=== PATIENT | female | born 1975 | race Hispanic/Latino ===

== ENCOUNTER 2018-09-06 03:59 | Inpatient (IN) | payer BC, SELFPAY ==
[2018-09-06] MEDS ORDERED: METOCLOPRAMIDE 10 MG/2mL INJ ONE (04:25)
[2018-09-06] MEDS ORDERED: DIPHENHYDRAMINE 25 MG TAB/CAP ONE (04:25)
[2018-09-06] MEDS ORDERED: BENZTROPINE 2 MG/2 ML VIAL ONE (04:47)
[2018-09-06 05:02] LABS: Absolute Lymphocytes (CBC) 3.3 K/uL (0.7-4.9); Absolute Monocytes 0.5 K/uL (0.1-1.3); Absolute Neutrophil 5.4 K/uL (1.8-8.0); Basophils % 0.5 % (0-1.3); Eosinophils % 1.4 % (0-4.4); Hematocrit 37.3 % (36.0-45.0); Lymphocytes % 35.1 % (15.3-44.8); MCH 29.5 pg (27.0-35.0); MCV 88.9 fL (80-100); MPV 10.3 fL (7.6-11.3); Monocytes % 5.4 % (3.3-12.3); RBC Red Blood Cell Count 4.19 M/uL (3.86-4.86)
[2018-09-06 05:15] LABS: ALT/SGPT 25 U/L (12-78); AST/SGOT 16 U/L (15-37); Albumin 3.5 g/dL (3.4-5.0); Alkaline Phosphatase 84 U/L (45-117); BUN Blood Urea Nitrogen 15 mg/dL (7-18); Bicarbonate 24 mmol/L (21-32); Bilirubin Total 0.5 mg/dL (0.2-1.0); Glucose Level 124 mg/dL (74-106); Potassium 3.8 mmol/L (3.5-5.1); Protein, Total 7.9 g/dL (6.4-8.2); Sodium Level 137 mmol/L (136-145)
[2018-09-06 06:11] LABS: Urine Blood 1+ (NEG); Urine Glucose NEGATIVE (NEG); Urine Protein NEGATIVE (NEG); Urine Specific Gravity >1.030 (1.005-1.030); Urine pH 5.5 (5.0-7.0)
--- NOTE | 2018-09-06 08:04 | RAD REPORT ---
EXAM DESCRIPTION: CT - Head angio - 09/06/2018 6:52 am CLINICAL HISTORY: blurred vision headache COMPARISON: Head Brain Wo Cont dated 09/06/2018; Head Brain Wo Cont dated 11/25/2017 TECHNIQUE: CT angiography of the head was performed with MIPs. All CT scans are performed using dose optimization technique as appropriate and may include automated exposure control or mA/KV adjustment according to patient size. FINDINGS: No evidence of aneurysm is detected. No flow-limiting stenosis or vascular malformation id entified. Antegrade flow is seen in the vertebral arteries. The vertebral arteries are codominant. The visualized dural venous sinuses are patent. IMPRESSION: No significant flow abnormality is detected.
--- NOTE | 2018-09-06 08:07 | RAD REPORT ---
EXAM DESCRIPTION: CT - Head Brain Wo Cont - 09/06/2018 7:09 am CLINICAL HISTORY: headache and left hemianopsia COMPARISON: Head Brain Wo Cont dated 11/25/2017; Head Brain Wo Cont dated 12/19/2016 TECHNIQUE: All CT scans are performed using dose optimization technique as appropriate and may inclu de automated exposure control or mA/KV adjustment according to patient size. FINDINGS: No intracranial hemorrhage, hydrocephalus or extra-axial fluid collection.No areas of brai n edema or evidence of midline shift. The paranasal sinuses and mastoids are clear. The calvarium is intact. IMPRESSION: No acute intracranial abnormality.
[2018-09-06] MEDS ORDERED: MEPERIDINE HCL 25 MG/0.5 ML ONE ×2 (08:20→12:03)
[2018-09-06] MEDS ORDERED: NA CHLORIDE 0.9% 1,000 ML ONE (08:20)
--- NOTE | 2018-09-06 08:48 | RAD REPORT ---
EXAM DESCRIPTION: RAD - Chest Single View - 09/06/2018 4:27 am CLINICAL HISTORY: headache visual change / subacute sls Chest pain. COMPARISON: Chest Single View dated 12/19/2016; Chest Pa And Lat (2 Views) dated 06/07/2016; CHEST SING LE VIEW dated 06/02/2014; CHEST SINGLE VIEW dated 12/26/2013 FINDINGS: Portable technique limits examination quality. The lungs are grossly clear. The heart is normal in size. No displaced fractures. IMPRESSION: No acute intrathoracic process suspected.
--- NOTE | 2018-09-06 09:15 | EDPHYS ---
Physician Documentation [facility] Name: Sarai Mohan Age: 43 yrs Sex: Female : 1975 Arrival Date: 09/06/2018 Time: 04:00 Bed 13 Private MD: ED Physician Andres Yang HPI: 09/06 04:20 This 43 yrs old Female presents to ER via Unassigned with complaints of ps1 Blurred Vision, Headache. 04:20 patient has a history of headaches and is presenting with a headache that started ps1 yesterday. She states she got concerned when she started watching the news and had visual changes. LKN was 10pm , 6 hours [employer]. She was seen last ED encounter by myself for similar complaints with neurologic phenomena. Tonight she describes visual changes with a left sided hemianopsia in which she states she can only see the right side of my face and clear where the right side of my face is supposed to be. . Historical: - Allergies: 04:22 No Known Allergies; aa1 - Home Meds: 04:22 None [Active]; aa1 - PMHx: 04:22 epilepsy; aa1 - PSHx: 04:22 Hysterectomy; Tubal ligation; Appendectomy; bladder prolapse sx; aa1 - Immunization history:: Flu vaccine is up to date. - Social history:: Smoking status: Patient/guardian denies using tobacco. - Ebola Screening: : No symptoms or risks identified at this time. ROS: 04:20 Constitutional: Negative for fever, chills, and weight loss, Eyes: Negative for injury, ps1 pain, redness, and discharge, Cardiovascular: Negative for chest pain, palpitations, and edema, Respiratory: Negative for shortness of breath, cough, wheezing, and pleuritic chest pain, Abdomen/GI: Negative for abdominal pain, nausea, vomiting, diarrhea, and constipation, Back: Negative for injury and pain, MS/Extremity: Negative for injury and deformity, Skin: Negative for injury, rash, and discoloration. 04:20 Neuro: Positive for headache, visual changes. Exam: 04:20 Constitutional: This is a well developed, well nourished patient who is awake, alert, ps1 and in no acute distress. Head/Face: Normocephalic, atraumatic. Eyes: Pupils equal round and reactive to light, extra-ocular motions intact. Lids and lashes normal. Conjunctiva and sclera are non-icteric and not injected. Chest/axilla: Normal chest wall appearance and motion. Nontender with no deformity. No lesions are appreciated. Cardiovascular: Regular rate and rhythm. No gallops, murmurs, or rubs. Normal PMI, no JVD. No pulse deficits. Respiratory: Lungs have equal breath sounds bilaterally, clear to auscultation and percussion. No rales, rhonchi or wheezes noted. No increased work of breathing, no retractions or nasal flaring. Abdomen/GI: Soft, non-tender, with normal bowel sounds. No distension or tympany. No guarding or rebound. No evidence of tenderness throughout. Back: No spinal tenderness. No costovertebral tenderness. Full range of motion. Skin: Warm, dry with normal turgor. Normal color with no rashes, no lesions, and no evidence of cellulitis. MS/ Extremity: Pulses equal, no cyanosis. Neurovascular intact. Full, normal range of motion. 04:20 Neuro: Orientation: is normal, to person, place \T\ time. Mentation: is normal, Memory: is normal, Cranial nerves: grossly normal, Cerebellar function: is grossly normal, inconsistent exam with counting fingers. Patient was able to see objects in which she reportedly was blanked in FOV. . Vital Signs: 04:22 BP 180 / 86; Pulse 83; Resp 16; Temp 98.6; Pulse Ox 98% on R/A; Weight 78.02 kg; Height aa1 5 ft. 4 in. (162.56 cm); Pain 0/10; 05:41 BP 127 / 72; Pulse 61; Resp 18; Pulse Ox 97% on R/A; tl1 06:36 BP 119 / 67; Pulse 57; Resp 18; Pulse Ox 97% on R/A; tl2 07:45 BP 124 / 88; Pulse 102; Resp 18; Pulse Ox 100% on R/A; ph 08:22 BP 126 / 76; Pulse 68; Resp 18; Pulse Ox 98% on R/A; ph 10:30 BP 106 / 67; Pulse 66; Resp 18; Pulse Ox 98% on R/A; ph 11:30 BP 112 / 62; Pulse 71; Resp 18; Pulse Ox 98% on R/A; ph 12:44 BP 105 / 58; Pulse 78; Resp 18; Temp 98.2; Pulse Ox 98% on R/A; ph 04:22 Body Mass Index 29.52 (78.02 kg, 162.56 cm) aa1 [place] Coma Score: 08:08 Eye Response: spontaneous(4). Verbal Response: oriented(5). Motor Response: obeys rn commands(6). Total: 15. MDM: 04:16 Patient medically screened. ps1 07:45 Transition of care: Care assumed from Tra Hebert MD. 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 . 08:08 Differential diagnosis: hypertensive headache, intracerebral hemorrhage, migraine, rn subarachnoid bleed, tension headache, vasomotor headache. Data reviewed: vital signs, nurses notes, lab test result(s), radiologic studies, CT scan, and as a result, I will discharge patient. Counseling: I had a detailed discussion with the patient and/or guardian regarding: the historical points, exam findings, and any diagnostic results supporting the discharge/admit diagnosis, lab results, radiology results, the need for outpatient follow up, to return to the emergency department if symptoms worsen or persist or if there are any questions or concerns that arise at home. Response to treatment: the patient's symptoms have mildly improved after treatment, and as a result, I will admit patient. ED course: Negative CT angio of brain. Patient upon reevaluation reports not any better, but when asked specifically about pain, reports not currently having headache. Vision changes still present. Reports long hx of headaches and migraines in past. Pain is intermittent. Otherwise non-focal exam. Will dc home with neuro and ophtho f/u. Already sees Dr. Kwok and Dr. Bruce. . 09/06 04:15 Order name: CBC with Diff; Complete Time: 05:16 ps1 09/06 04:15 Order name: CMP; Complete Time: 05:15 ps1 09/06 04:15 Order name: CT Head Brain wo Cont; Complete Time: 08:07 ps1 09/06 04:15 Order name: CXR XRAY ps1 09/06 04:33 Order name: Urine Dipstick--Ancillary (enter results); Complete Time: 06:12 mt 09/06 04:33 Order name: Urine --Ancillary (enter results); Complete Time: 06:12 mt 09/06 06:22 Order name: Head angio; Complete Time: 08:07 EDMS 09/06 10:29 Order name: Diet Regular; Complete Time: 10:30 3 09/06 04:15 Order name: Urine Dipstick-Ancillary (obtain specimen); Complete Time: 04:22 ps1 Administered Medications: 04:27 Not Given (Patient Refused): Benadryl 50 mg PO once tl2 04:28 Drug: Reglan 10 mg Route: IVP; Site: right antecubital; tl2 04:45 Drug: COgentin 1 mg Route: IVP; Site: right antecubital; tl1 08:22 Drug: NS 0.9% 1000 ml Route: IV; Rate: 1000 ml; Site: right antecubital; ph 10:00 Follow up: Response: No adverse reaction; IV Status: Completed infusion ph 08:22 Drug: Demerol 25 mg Route: IVP; Site: right antecubital; ph 09:30 Follow up: Response: No adverse reaction; Pain is decreased ph 12:00 Drug: Demerol 25 mg Route: IVP; Site: right antecubital; ph 12:50 Follow up: Response: No adverse reaction; Pain is decreased ph Disposition: 09/06/18 09:14 Hospitalization ordered by Mohamud Nolan for Inpatient Admission. Preliminary diagnosis are Homonymous bilateral field defects, left side, Headache. - Bed requested for Telemetry/MedSurg (Inpatient). - Status is Inpatient Admission. ph - Condition is Stable. - Problem is new. - Symptoms are unchanged. UTI on Admission? No Signatures: Dispatcher [employer] EDWY Shaina Macedo RN RN aa1 Andres Yang MD MD rn Lasagna, Tonya, RN RN tl1 Karen Joshua RN RN Tejal Rodríguez RN RN tl2 Charlee Castañeda 3 Tra Hebert MD MD ps1 Maribel Kan Corrections: (The following items were deleted from the chart) 09:42 09:14 Hospitalization Ordered by Mohamud Nolan MD for Inpatient Admission. Preliminary eb diagnosis is Homonymous bilateral field defects, left side; Headache. Bed requested for Telemetry/MedSurg (Inpatient). Status is Inpatient Admission. Condition is Stable. Problem is new. Symptoms are unchanged. UTI on Admission? No. rn 12:44 09:42 09/06/2018 09:14 Hospitalization Ordered by Mohamud Nolan MD for Inpatient dh3 Admission. Preliminary diagnosis is Homonymous bilateral field defects, left side; Headache. Bed requested for Telemetry/MedSurg (Inpatient). Status is Inpatient Admission. Condition is Stable. Problem is new. Symptoms are unchanged. UTI on Admission? No. eb 13:01 12:44 09/06/2018 09:14 Hospitalization Ordered by Mohamud Nolan MD for Inpatient Admission. Preliminary diagnosis is Homonymous bilateral field defects, left side; Headache. Bed requested for Telemetry/MedSurg (Inpatient). Status is Inpatient Admission. Condition is Stable. Problem is new. Symptoms are unchanged. UTI on Admission? No. dh3
--- NOTE | 2018-09-06 09:15 | ER ---
Nurse's Notes [facility] Name: Sarai Mohan Age: 43 yrs Sex: Female : 1975 Arrival Date: 09/06/2018 Time: 04:00 Bed 13 Private MD: Diagnosis: Homonymous bilateral field defects, left side;Headache Presentation: 09/06 04:10 Presenting complaint: Patient states: she has had a migraine headache x 2 days and aa1 began having difficulty with her vision around 2200 last night. States, "I can see that all of yall are there but when I look at your faces I can only see the right half.". Transition of care: patient was not received from another setting of care. Onset of symptoms was September 05, 2018. Risk Assessment: Do you want to hurt yourself or someone else? Patient reports no desire to harm self or others. Initial Sepsis Screen: Does the patient meet any 2 criteria? No. Patient's initial sepsis screen is negative. Does the patient have a suspected source of infection? No. Patient's initial sepsis screen is negative. Care prior to arrival: None. 04:10 Method Of Arrival: Ambulatory aa1 04:10 Acuity: VIC 3 aa1 Historical: - Allergies: 04:22 No Known Allergies; aa1 - Home Meds: 04:22 None [Active]; aa1 - PMHx: 04:22 epilepsy; aa1 - PSHx: 04:22 Hysterectomy; Tubal ligation; Appendectomy; bladder prolapse sx; aa1 - Immunization history:: Flu vaccine is up to date. - Social history:: Smoking status: Patient/guardian denies using tobacco. - Ebola Screening: : No symptoms or risks identified at this time. Screenin:18 Abuse screen: Denies threats or abuse. Nutritional screening: No deficits noted. tl2 Tuberculosis screening: No symptoms or risk factors identified. Fall Risk None identified. Assessment: 04:18 General: Appears in no apparent distress. uncomfortable, Behavior is calm, cooperative, tl2 appropriate for age. Pain: Complains of pain in headache. Neuro: Level of Consciousness is awake, alert, obeys commands, Oriented to person, place, time, situation, Reports blurred vision Pt reports only having vision in the right visual delgadillo when she is focusing on something. Peripheral vision remains intact. Neuro: Gait is steady, Speech is normal, Facial symmetry appears normal, Pupils are PERRLA, Denies dizziness. Cardiovascular: Denies chest pain. Respiratory: Airway is patent Respiratory effort is even, unlabored, Respiratory pattern is regular, symmetrical. GI: No signs and/or symptoms were reported involving the gastrointestinal system. EENT:. Derm: Skin is pink, warm \\T\\ dry. 06:36 Reassessment: Patient appears in no apparent distress at this time. Patient and/or tl2 family updated on plan of care and expected duration. Pain level reassessed. Pt being transported to MD, states her headache has improved slightly. 07:45 Reassessment: Patient appears in no apparent distress at this time. Patient and/or ph family updated on plan of care and expected duration. Pain level reassessed. Patient is alert, oriented x 3, equal unlabored respirations, skin warm/dry/pink. ERP at bedside to speak w/ pt. 09:00 Reassessment: Patient appears in no apparent distress at this time. Patient and/or ph family updated on plan of care and expected duration. Pain level reassessed. Patient is alert, oriented x 3, equal unlabored respirations, skin warm/dry/pink. 10:00 Reassessment: Patient appears in no apparent distress at this time. Patient and/or ph family updated on plan of care and expected duration. Pain level reassessed. Patient is alert, oriented x 3, equal unlabored respirations, skin warm/dry/pink. Pt ambulated to restroom, gait steady, awaiting room assignmnet. 11:00 Reassessment: Patient appears in no apparent distress at this time. Patient and/or ph family updated on plan of care and expected duration. Pain level reassessed. Patient is alert, oriented x 3, equal unlabored respirations, skin warm/dry/pink. 12:00 Reassessment: Patient appears in no apparent distress at this time. Patient and/or ph family updated on plan of care and expected duration. Pain level reassessed. Patient is alert, oriented x 3, equal unlabored respirations, skin warm/dry/pink. Pt eating lunch, tolerating well, c/o headache 05/22, ERP notified, see MAR. 12:57 Reassessment: Patient appears in no apparent distress at this time. Patient and/or ph family updated on plan of care and expected duration. Pain level reassessed. Patient is alert, oriented x 3, equal unlabored respirations, skin warm/dry/pink. Report called to Jenny LOCKE, pt taken to inpatient room via wheelchair. Vital Signs: 04:22 BP 180 / 86; Pulse 83; Resp 16; Temp 98.6; Pulse Ox 98% on R/A; Weight 78.02 kg; Height aa1 5 ft. 4 in. (162.56 cm); Pain 0/10; 05:41 BP 127 / 72; Pulse 61; Resp 18; Pulse Ox 97% on R/A; tl1 06:36 BP 119 / 67; Pulse 57; Resp 18; Pulse Ox 97% on R/A; tl2 07:45 BP 124 / 88; Pulse 102; Resp 18; Pulse Ox 100% on R/A; ph 08:22 BP 126 / 76; Pulse 68; Resp 18; Pulse Ox 98% on R/A; ph 10:30 BP 106 / 67; Pulse 66; Resp 18; Pulse Ox 98% on R/A; ph 11:30 BP 112 / 62; Pulse 71; Resp 18; Pulse Ox 98% on R/A; ph 12:44 BP 105 / 58; Pulse 78; Resp 18; Temp 98.2; Pulse Ox 98% on R/A; ph 04:22 Body Mass Index 29.52 (78.02 kg, 162.56 cm) aa1 [place] Coma Score: 08:08 Eye Response: spontaneous(4). Verbal Response: oriented(5). Motor Response: obeys rn commands(6). Total: 15. ED Course: 04:00 Patient arrived in ED. ds1 04:02 Tra Hebert MD is Attending Physician. ps1 04:17 Tejal Rodríguez, CHUKCY is Primary Nurse. tl2 04:18 Patient has correct armband on for positive identification. Bed in low position. Call tl2 light in reach. Side rails up X 1. 04:18 Inserted saline lock: 20 gauge in right antecubital area, using aseptic technique. tl2 Blood collected. 04:21 Triage completed. aa1 04:22 Arm band placed on right wrist. aa1 04:26 X-ray completed. Portable x-ray completed in exam room. Patient tolerated procedure kw well. 04:27 CXR XRAY In Process Unspecified. EDMS 04:50 CT Head Brain wo Cont In Process Unspecified. EDMS 04:51 CT completed. Patient tolerated procedure well. Patient moved to CT via wheelchair. eh Patient moved back from CT. 06:52 Head angio In Process Unspecified. EDMS 06:54 CT completed. Patient tolerated procedure well. Patient moved to CT via wheelchair. eh Patient moved back from CT. 09:13 Mohamud Nolan MD is Hospitalizing Provider. rn 09:14 Attending Physician role handed off by Tra Hebert MD rn 09:14 Andres Yang MD is Attending Physician. rn 13:00 No provider procedures requiring assistance completed. Patient admitted, IV remains in ph place. Administered Medications: 04:27 Not Given (Patient Refused): Benadryl 50 mg PO once tl2 04:28 Drug: Reglan 10 mg Route: IVP; Site: right antecubital; tl2 04:45 Drug: COgentin 1 mg Route: IVP; Site: right antecubital; tl1 08:22 Drug: NS 0.9% 1000 ml Route: IV; Rate: 1000 ml; Site: right antecubital; ph 10:00 Follow up: Response: No adverse reaction; IV Status: Completed infusion ph 08:22 Drug: Demerol 25 mg Route: IVP; Site: right antecubital; ph 09:30 Follow up: Response: No adverse reaction; Pain is decreased ph 12:00 Drug: Demerol 25 mg Route: IVP; Site: right antecubital; ph 12:50 Follow up: Response: No adverse reaction; Pain is decreased ph Outcome: 09:14 Decision to Hospitalize by Provider. rn 13:01 Admitted to Med/surg accompanied by tech, via wheelchair, room 426, with chart. ph 13:01 Condition: stable 13:01 Patient left the ED. ph Signatures: Dispatcher [employer] EDMS Shaina Macedo RN RN cj1 Morales Salvador Demi ds1 Andres Yang MD MD rn Whitley, Kimberlee kw Lasagna, Tonya, RN RN tl1 Karen Joshua RN RN ph Knox, Taylor RN RN tl2 Tra Hebert MD MD ps1
[2018-09-06] MEDS ORDERED: ONDANSETRON 4 MG/2 ML VIAL IV PRN (13:08)
[2018-09-06 13:36] VITALS: BMI 29.5
[2018-09-06] MEDS ORDERED: POTASSIUM CL SA 10 MEQ TAB PO ONE (14:00)
[2018-09-06] MEDS: ENOXAPARIN 40 MG/0.4 ML SQ SCH (14:50)
--- NOTE | 2018-09-06 17:34 | RAD REPORT ---
EXAM DESCRIPTION: MRI - Brain W/Wo Cont - 09/06/2018 5:18 pm CLINICAL HISTORY: Homonous hemianopsia COMPARISON: Head angio dated 09/06/2018; MRA Head Wo Cont dated 12/21/2016; Brain Wo Cont dated 12/19/19 17; MRA Neck W/Wo Cont dated 12/21/2016; Head Brain Wo Cont dated 09/06/2018 TECHNIQUE: Multi-sequence, multiplanar MR imaging of the brain was performed with contrast. FINDINGS: No intracranial hemorrhage, hydrocephalus, extra-axial fluid collection. No edema or shift of midline structures. No intracranial mass. 3 cm area of restricted diffusion is noted in the righ t occipital lobe with diminished ADC map signal compatible with acute CVA.. The midline structures are normally formed. Mastoid air cells and paranasal sinuses are clear. Post-contrast images show no abnormal enhancement to suggest tumor or infection. 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 Findings were discussed with Dr. Nolan 5:30 p.m. 09/06/2018 by telephone.
--- NOTE | 2018-09-06 19:17 | RAD REPORT ---
EXAM DESCRIPTION: US - CP - 09/06/2018 6:34 pm CLINICAL HISTORY: CVA COMPARISON: None. TECHNIQUE: Real-time sonographic evaluation of both carotid systems was performed. Ramírez scale and Do ppler interrogation were performed with waveform tracing bilaterally. FINDINGS: Normal high resistance waveforms are noted in both external carotid arteries. The common c arotid arteries and internal carotid arteries show normal low resistance waveforms. No significant plaquing is seen on visual inspection. The mid and distal right internal carotid arter y velocity values are elevated relative to the left. ICA/CCA ratios are 1.7 on the right and 1.2 on t he left. Antegrade flow seen in both vertebral arteries. Velocity values and ratios were recorded and are retained in the patient's imaging records. IMPRESSION: Mid and distal ICA velocity values are elevated with an elevated right side ICA/ CCA rat io. On visual inspection significant stenosis is not evident. Follow-up MR angiography of the cervical ca rotid vasculature could be performed for further characterization. No significant stenosis or significant disease on the left.
[2018-09-06] MEDS: ACETAMINOPHEN 500 MG TAB PO PRN (20:08)
[2018-09-06] MEDS: ATORVASTATIN 80 MG TAB PO SCH (20:09)
[2018-09-06 20:13] LABS: Urine Appearance CLEAR; Urine Bilirubin NEGATIVE (NEG); Urine Blood NEGATIVE (NEG); Urine Color YELLOW; Urine Glucose NEGATIVE (NEG); Urine Protein NEGATIVE (NEG); Urine Specific Gravity 1.015 (1.005-1.030); Urine Urobilinogen 0.2 mg/dL (0.2-1.0); Urine pH 6.5 (5.0-7.0)
[2018-09-06 20:20] LABS: Urine Microscopic Reflex NO UMIC
--- NOTE | 2018-09-06 22:38 | P.HP ---
Patient History Date of Service: 09/06/18 Reason for admission: Left sided vision loss History of Present Illness: 43 yr old female with hx of epilepsy, not on any medications, presented to the ER with complaints of left sided vision loss since 10 pm the night prior to admission. Per patient, she was watching tv at night and noticed that her vision was funny and she could not see anything from the left half side of her vision and she had a terrible headache. She has a history of getting such headaches so she thought it was related to that, took 2 tylenol and went to sleep. She woke up around 3 am with a headache and when she woke up to go to the bathroom she noticed her vision had not gotten any better and hence came to the ED. In the ED, a CT scan was done, which was negative and she was admitted for further evaluation. At the time of my exam, her symptoms were unchanged. She denies any speech changes, any focal weakness, loss of conciousness, falls, dizziness, cp, shortness of breath or any numbness/tingling. Allergies No Known Drug Allergies Allergy (Verified 12/21/16 06:21) Unknown No Known Allergies Allergy (Uncoded 11/25/17 14:37) Unknown Home Medications: levETIRAcetam [Keppra*] 750 mg PO BID #60 tab 12/23/16 Ibuprofen [Advil] 400 mg PO Q8HP 09/06/18 - Past Medical/Surgical History Has patient received pneumonia vaccine in the past: No Diabetic: No -: epilepsy -: prolapsed bladder -: Partial hysterectomy -: Tubal Ligation -: Appendectomy -: Ovarian Cyst -: prolapsed bladder sx - Family History Father -: Hypertension, Diabetes Mother -: Hypertension, Cancer - Social History Smoking Status: Never smoker Alcohol use: No CD- Drugs: No Caffeine use: Yes Place of Residence: Home Review of Systems General: Unremarkable Eyes: Vision Change, As per HPI ENT: Unremarkable Respiratory: Unremarkable Cardiovascular: Unremarkable Gastrointestinal: Unremarkable Genitourinary: Unremarkable Musculoskeletal: Unremarkable Integumentary: Unremarkable Neurological: As per HPI Lymphatics: Unremarkable Physical Examination - Vital Signs Temperature: 98.4 F Blood Pressure: 127/62 Pulse: 61 Respirations: 20 Pulse Ox (%): 99 - Physical Exam General: Alert, Oriented x3, Moderate distress (due to symptoms of vision changes/ADAMS) HEENT: Atraumatic, PERRLA, Mucous membr. moist/pink, EOMI, Sclerae nonicteric Neck: Supple, 2+ carotid pulse no bruit, No LAD, Without JVD or thyroid abnormality Respiratory: Clear to auscultation bilaterally, Normal air movement Cardiovascular: Regular rate/rhythm, Normal S1 S2 Gastrointestinal: Normal bowel sounds, No tenderness Musculoskeletal: No tenderness Integumentary: No rashes Neurological: Normal gait, Normal speech, Normal strength at 5/5 x4 extr, Normal tone, Sensation intact, Normal affect, Abnormal cranial nerve function Lymphatics: No axilla or inguinal lymphadenopathy - Studies Laboratory Data (last 24 hrs) 09/06/18 04:15: Sodium 137, Potassium 3.8, BUN 15, Creatinine 0.60, Glucose 124 H, Total Bilirubin 0.5, AST 16, ALT 25, Alkaline Phosphatase 84 09/06/18 04:15: WBC 9.4, Hgb 12.4, Hct 37.3, Plt Count 215 Assessment and Plan - Problems (Diagnosis) (1) Hemianopia of left eye Current Visit: Yes Status: Acute Plan: Ddx: Stroke, TIA, complex migraine CT negative for bleed MRI, MRA neck/brain ordered Neurology, Dr. Kwok consulted (2) Seizure disorder Current Visit: No Status: Suspected Plan: No evidence of seizure at this time Patient has not been on her home medication of keppra since 04/2018 as she ran out. Will hold off on seizure medication Her neurologist, Dr. Kwok consulted. - Advance Directives Does patient have a Living Will: No Does patient have a Durable POA for Healthcare: No
--- NOTE | 2018-09-06 23:40 | CON ---
Date of Consultation: 09/06/2018 Reason: Vision loss, stroke. History: This is a 43-year-old lady whom I have seen in the past. She has a history of seizures, those have been very stable on Keppra. We have not seen her in over 6 months. She was in her usual state of health until last night, 10 p.m., she noticed abrupt onset headache, vision loss on the left side of her vision. She thought perhaps the problem would improve, but it did not, and when she woke up this morning, came to the emergency department, where she was noted to have a dense left hemianopsia. Six hours outside after onset, CT angiogram did not demonstrate any evidence of a large vessel occlusion, so felt not to be a candidate for thrombectomy. She was admitted to the hospital given the significant vision loss. She did have headache associated as well, and she has a history of migraines. Brain MRI demonstrates 3 cm nonhemorrhagic infarct in the right occipital lobe, it is slightly lateral to midline on personal review. She does not notice any dysarthria, numbness, weakness, vertigo, ataxia or other posterior fossa ischemic symptoms. Denies neck pain. As noted, there is no real evidence of a dissection on CT angiogram. Consultation was requested. Past Medical History: Epilepsy, headaches. Medications: Keppra 750 twice daily. Allergies: NONE. Social History: Employed. Does not smoke. Normally independent activities of daily living. Family History: Significant for vascular disease. Review of Systems: General: Good health. Eyes: Vision loss. Ears, Nose, Throat: Negative. Cardiovascular: Negative. Pulmonary: Negative. GI: Negative. : Negative. Musculoskeletal: Negative. Neurologic: As noted. Psychiatric: Negative. Endocrine: Negative. Hematologic: Negative. Physical Examination: Vital Signs: 97.8, 65, 18, 132/59. General: A pleasant lady, sitting in bed, in no distress. Awake, alert, oriented to time, person, place, and situation. Heart: Sinus rhythm. Neck: No carotid bruits. Lungs: Clear. Abdomen: Soft. Bowel sounds present. HEENT: Pupils reactive. Ocular motion full. Allen full. Dense left homonymous hemianopsia to confrontation. Neck: Supple. Extremities: Strength full. Sensation intact. No cortical extinction. Reflexes 1/4. Toes are downgoing. Neurologic: Cerebellar exam demonstrates no ataxia. Pertinent Labs: Brain MRI as noted. Echo pending. Lipids pending. Impression: Cerebral infarction, right occipital lobe. There is no real evidence for primary thrombotic phenomenon, possibly embolic. We will initiate a hypercoagulable workup. Follow up on the echo. Check MRA head and neck as well. She should have at least 135 degrees of vision to safely drive. Thank you for the consult. We will continue to follow with you. SAVANNA Voice ID: [id number] Report ID: [id number] MTDD
[2018-09-07] MEDS: ACETAMINOPHEN 500 MG TAB PO PRN ×2 (04:58→10:20)
[2018-09-07 06:22] LABS: RPR Titer ND
[2018-09-07 06:38] LABS: Absolute Lymphocytes (CBC) 2.3 K/uL (0.7-4.9); Absolute Monocytes 0.4 K/uL (0.1-1.3); Absolute Neutrophil 4.4 K/uL (1.8-8.0); Basophils % 0.3 % (0-1.3); Eosinophils % 1.7 % (0-4.4); Hematocrit 36.7 % (36.0-45.0); Lymphocytes % 31.4 % (15.3-44.8); MCH 29.9 pg (27.0-35.0); MCV 89.1 fL (80-100); MPV 10.5 fL (7.6-11.3); Monocytes % 5.5 % (3.3-12.3); RBC Red Blood Cell Count 4.13 M/uL (3.86-4.86)
[2018-09-07 07:14] LABS: ALT/SGPT 23 U/L (12-78); AST/SGOT 10 U/L (15-37); Albumin 3.3 g/dL (3.4-5.0); Alkaline Phosphatase 85 U/L (45-117); BUN Blood Urea Nitrogen 11 mg/dL (7-18); Bicarbonate 23 mmol/L (21-32); Bilirubin Total 0.4 mg/dL (0.2-1.0); Glucose Level 118 mg/dL (74-106); HDL Cholesterol 46 mg/dL (40-60); LDL Cholesterol, Calculated 91 (<130); Magnesium 1.9 mg/dL (1.8-2.4); Phosphorus 3.4 mg/dL (2.5-4.9); Potassium 3.9 mmol/L (3.5-5.1); Protein, Total 7.6 g/dL (6.4-8.2); Sodium Level 137 mmol/L (136-145)
--- NOTE | 2018-09-07 07:52 | RAD REPORT ---
EXAM DESCRIPTION: MRI - MRA Head Wo Cont - 09/07/2018 7:16 am CLINICAL HISTORY: CVA COMPARISON: MRI of February 04 TECHNIQUE: Axial and coronal 3D [id number] image acquisition was performed. 3D rotational images were generated with source and reconstruction images reviewed. Horizontal and vertical axis rotation al views generated using MIP protocol. FINDINGS: Major venous sinuses are patent. No aneurysm or vascular malformation. No specific branch occlusion or significant atherosclerotic change in the vascular distribution of th e known acute right occipital lobe CVA. Basilar artery and distal vertebral arteries are unremarkable . No significant posterior cerebral artery disease identifiable. No significant vascular disease in the right middle cerebral artery distribution. No vasculitis or ot her suspicious vascular finding identifiable. IMPRESSION: MRA head examination shows no significant or suspicious finding.
--- NOTE | 2018-09-07 07:54 | RAD REPORT ---
EXAM DESCRIPTION: MRI - MRA Neck W/Wo Cont - 09/07/2018 7:16 am CLINICAL HISTORY: Right occipital CVA COMPARISON: MRI brain September 06, MRA head September 07 TECHNIQUE: MR angiography of the cervical vasculature performed. Coronal imaging plane utilized. A 1 7 milliliter MultiHance contrast volume was utilized. Coronal reformatted images were generated and r eviewed. Vertical axis 3D rotational views were obtained using maximum intensity projection protocol. FINDINGS: Aortic arch is 3 vessel configuration with no origins stenosis. Codominant vertebral arter y show no origins stenoses. There is no carotid or vertebral dissection. No stenosis changes. There i s no aneurysm or vascular malformation. No vasculitis or other focal or diffuse vascular finding. IMPRESSION: Unremarkable MRA neck examination.
[2018-09-07] MEDS: ASPIRIN EC 81 MG TAB PO SCH (08:28)
[2018-09-07] MEDS: CLOPIDOGREL 75 MG TABLET PO SCH (08:28)
[2018-09-07] MEDS: ENOXAPARIN 40 MG/0.4 ML SQ SCH (08:28)
[2018-09-07] MEDS ORDERED: POTASSIUM 25 MEQ EFFERV TAB PO ONE (09:00)
--- NOTE | 2018-09-07 15:27 | RAD REPORT ---
EXAM DESCRIPTION: RAD - Barium Swallow Modified - 09/07/2018 3:17 pm CLINICAL HISTORY: CVA/dysphagia FINDINGS: Fluro time 0:45 sec 12 fluoroscopic spot series obtained Swallow was within functional limits No penetration or aspiration was observed with any consistency. Final pureed bolus passed into the lower esophagus without difficulty.
[2018-09-07] MEDS: TOPIRAMATE 25 MG TAB PO SCH ×2 (15:38→20:15)
--- NOTE | 2018-09-07 16:42 | P.PN ---
Subjective Date of Service: 09/07/18 Chief Complaint: Left sided vision loss Patient seen and examined at bedside. Son at bedside. Case discussed with nursing staff and Dr. fox. Patient reports no changes in her symptoms of vision loss or headache. Also reporting facial numbness/tingling on left side of the face. No facial drooping, speech changes noted. Review of Systems As noted above Physical Examination - Vital Signs Temperature: 98.3 F Blood Pressure: 137/65 Pulse: 68 Respirations: 18 Pulse Ox (%): 94 - Physical Exam General: Alert, In no apparent distress HEENT: Atraumatic, PERRLA, EOMI Neck: Supple, JVD not distended, Other (Hemianopsia on the left side) Respiratory: Clear to auscultation bilaterally, Normal air movement Cardiovascular: Regular rate/rhythm, Normal S1 S2 Gastrointestinal: Normal bowel sounds, No tenderness Musculoskeletal: No tenderness Neurological: Normal speech, Normal tone, Normal affect, Abnormal sensation (On the left side of face.) - Studies Medications List Reviewed: Yes Assessment And Plan - Current Problems (Diagnosis) (1) CVA (cerebral vascular accident) Current Visit: Yes Status: Acute Plan: Patient noted to have a left occipital acute CVA. Likely the cause of vision changes. Stroke protocol .initiated patient started on high-intensity stat, aspirin and Plavix. Neurology consult, recommendations appreciated PT and OT ordered Barium swallow study ordered. Keep patient NPO till swallow study done. Neck/brain MRA are without any acute abnormalities. Echo pending Qualifiers: CVA mechanism: unspecified Qualified Code(s): I63.9 - Cerebral infarction, unspecified (2) Hemianopia of left eye Onset Date: 09/07/18 Current Visit: Yes Status: Acute Plan: Ddx: Stroke, TIA, complex migraine CT negative for bleed MRI, MRA neck/brain ordered Neurology, Dr. Kwok consulted (3) Seizure disorder Onset Date: 09/07/18 Current Visit: Yes Status: Suspected Plan: No evidence of seizure at this time Patient has not been on her home medication of keppra since 04/2018 as she ran out. Will hold off on seizure medication Her neurologist, Dr. Kwok consulted.
[2018-09-07] MEDS: ATORVASTATIN 80 MG TAB PO SCH (20:15)
[2018-09-07] MEDS: ATORVASTATIN 40 MG TAB PO SCH (21:00)
[2018-09-07 22:00] LABS: RPR (Rapid Plasma Reagin) NON-REACT (NON-REACT)
--- NOTE | 2018-09-08 01:37 | PN ---
Reason: Stroke. Interval History: The patient is complaining of some pain on the right side of the face. It is there fairly frequently and describes it as a paresthesia, but yet it is painful at the same time possibly related to the infarct proper. There are no other associated symptoms such as dysarthria or visual changes or ataxia or vertigo. Labs reviewed. Sedimentation rate is slightly elevated. We will check a C-reactive protein in the morning. Primary physician has initiated some Topamax though she quit taking the Keppra several months ago. That is not efficacious, may need to change that to a different medication like Depakote, although would avoid Topamax and Depakote in conjunction, as they can cause significant hyperammonemia. MRA brain, neck, no dissection, there is no significant vascular disease in the intracranial circulation. Additional hypercoagulable workup remains pending. Liver function tests normal. LDL is 91 , so we will decrease the statin to 40 mg. RPR pending. Physical Examination: General: She is awake, alert, oriented. No aphasia. No dysarthria. HEENT: Left hemianopsia to midline. Ocular motion full. Decreased sensation right cheek versus left. Extremities: Strength full. Extremity sensation intact. Reflexes 1/4. Toes are downgoing. Impression: Cerebral infarction. Plan: Continue dual antiplatelet therapy. We will see how she responds to the topiramate for the facial paresthesias and head discomfort, although topiramate can often generate paresthesias as a common side effect. I think she should continue to stay in the hospital as long as she is having new neurologic symptoms so soon after the stroke. Echo remains pending. SAVANNA Voice ID: [id number] Report ID: [id number] MTDD
[2018-09-08] MEDS: ACETAMINOPHEN 500 MG TAB PO PRN (03:13)
[2018-09-08] MEDS ORDERED: NA CHLORIDE 0.9% 500 ML IV ONE (04:14)
[2018-09-08] MEDS ORDERED: FENTANYL CITR 100 MCG/2 ML IV ONE (04:15)
[2018-09-08] MEDS: NA CHLORIDE 0.9% 1,000 ML IV SCH ×3 (05:14→16:34)
[2018-09-08 06:34] LABS: Absolute Lymphocytes (CBC) 2.1 K/uL (0.7-4.9); Absolute Monocytes 0.3 K/uL (0.1-1.3); Absolute Neutrophil 4.3 K/uL (1.8-8.0); Basophils % 0.3 % (0-1.3); Eosinophils % 1.5 % (0-4.4); Hematocrit 36.1 % (36.0-45.0); Lymphocytes % 30.6 % (15.3-44.8); MCH 30.7 pg (27.0-35.0); MCV 88.7 fL (80-100); MPV 10.3 fL (7.6-11.3); Monocytes % 4.6 % (3.3-12.3); RBC Red Blood Cell Count 4.08 M/uL (3.86-4.86)
[2018-09-08 06:37] LABS: ALT/SGPT 23 U/L (12-78); AST/SGOT 12 U/L (15-37); Albumin 3.4 g/dL (3.4-5.0); Alkaline Phosphatase 85 U/L (45-117); BUN Blood Urea Nitrogen 14 mg/dL (7-18); Bicarbonate 24 mmol/L (21-32); Bilirubin Total 0.5 mg/dL (0.2-1.0); Glucose Level 115 mg/dL (74-106); Potassium 3.9 mmol/L (3.5-5.1); Protein, Total 7.4 g/dL (6.4-8.2); Sodium Level 137 mmol/L (136-145)
[2018-09-08] MEDS ORDERED: POTASSIUM 25 MEQ EFFERV TAB PO ONE (06:48)
[2018-09-08] MEDS: ENOXAPARIN 40 MG/0.4 ML SQ SCH (08:13)
[2018-09-08] MEDS: CLOPIDOGREL 75 MG TABLET PO SCH (08:13)
[2018-09-08] MEDS: TOPIRAMATE 25 MG TAB PO SCH ×2 (08:13→21:29)
[2018-09-08] MEDS: ASPIRIN EC 81 MG TAB PO SCH (08:13)
--- NOTE | 2018-09-08 18:48 | PN ---
History: Currently, patient is lying in bed. She looks comfortable. She continued to have abnormal sensation in her left face. No chest pain. No abdominal pain. She had headache earlier and episod e of dizziness, which resolved. Physical Examination: Vital Signs: Currently, blood pressure 141/61, respiratory rate 18, pulse 79, temperature 98.4. General: The patient is alert and oriented x3. Does not look in any distress. HEENT: Atraumatic, normocephalic. PERRLA. Oral mucosa is moist. Neck: Supple. No JVD. No carotid bruits. Chest: Clear to auscultation. Good air entry. Heart: Regular rate and rhythm. S1, S2 normal. No murmur. Abdomen: Soft, nontender. No masses. No hepatosplenomegaly. Positive bowel sounds. Extremities: No clubbing, cyanosis, or edema. No calf tenderness. Neurologic: Grossly intact for cranial exam except loss of sensation on her left face. Laboratory Data: Today showed CBC within normal. CMP within normal. Protein serum reactive high at 13.4. Serum electrophoresis is pending. ESR 28. Echocardiogram still pending. Assessment And Plan: 1.Left occipital acute cerebrovascular accident, which was likely causing her vision change. The pa tient on aspirin and Plavix, statin. Dr. Kwok's recommendation appreciated. Echocardiogram done bu t still pending. Swallow study done. The patient is able to swallow. Neck and brain MRA without an y abnormalities. 2.Hemianopia of left eye, most likely secondary to her stroke. 3.Elevated ESR and CRP with loss of sensation of the left face. Dr. Kwok planning to keep the nazario ent inpatient and do apparently left temporal artery biopsy to rule out temporal arteritis. 4.Seizure disorder. Keppra is on hold. The patient on Topamax at this point. 5.Ambulate. 6.Workup ordered by Dr. Kwok still pending for protein electrophoresis, proteinase for protein c-AN CA, factor V Leiden, and antiphospholipid antibody panel. 7.Discharge plan will be based on recommendation by Neurology after the biopsy for temporal artery o n Monday. GILA/MODL Voice ID: [id number] Report ID: [id number]
--- NOTE | 2018-09-08 19:12 | PN ---
Date of Progress Note: 09/08/2018 Reason: Stroke. Interval History: The patient's headache is better. She received fentanyl. She is on the topiramat e. Still has the facial paresthesias. C-reactive protein was notably elevated this morning at 13, n ormal being less than 3. I think given the elevated sedimentation rate and the headache and the elev ated inflammatory markers as well as unremarkable vascular evaluation that may need to be pursued in more detail. We will repeat those studies tomorrow with an VIANCA. If they remain elevated, the patien t may need a temporal artery biopsy or some other type of tissue evaluation for possible vasculopathy as the underlying etiology of the stroke proper. Physical Examination: General: She is awake, alert, oriented, lucid. Neck: Supple. Slight right temporal artery tenderness. Neurologic: Pupils reactive. Ocular motion full. Left hemianopsia unchanged. Paresthesias right c heek. Facial strength normal. Extremity strength full. Extremity sensation intact. Reflexes 1/4. The toes are downgoing. Impression: Cerebral infarction, elevated sedimentation rate. Plan: Repeat inflammatory markers tomorrow. Check VIANCA as well. If inflammatory markers are still e levated, may need to consult General Surgery, Dr. New for possible temporal artery biopsy next week . Prior VIANCA in December of 2016 was negative. We will continue to follow with you. SAVANNA Voice ID: [id number] Report ID: [id number]
[2018-09-08] MEDS: ATORVASTATIN 40 MG TAB PO SCH (21:29)
[2018-09-09] MEDS: NA CHLORIDE 0.9% 1,000 ML IV SCH ×4 (00:46→17:15)
[2018-09-09 06:36] LABS: Absolute Lymphocytes (CBC) 2.2 K/uL (0.7-4.9); Absolute Monocytes 0.3 K/uL (0.1-1.3); Basophils % 0.5 % (0-1.3); Eosinophils % 1.6 % (0-4.4); Lymphocytes % 32.6 % (15.3-44.8); MCH 30.5 pg (27.0-35.0); MCV 89.9 fL (80-100); MPV 9.6 fL (7.6-11.3); Monocytes % 4.7 % (3.3-12.3); RBC Red Blood Cell Count 3.89 M/uL (3.86-4.86)
[2018-09-09 06:57] LABS: BUN Blood Urea Nitrogen 13 mg/dL (7-18); Bicarbonate 23 mmol/L (21-32); Glucose Level 116 mg/dL (74-106); Potassium 3.8 mmol/L (3.5-5.1); Sodium Level 138 mmol/L (136-145)
[2018-09-09 06:58] LABS: ALT/SGPT 25 U/L (12-78); AST/SGOT 12 U/L (15-37); Albumin 3.3 g/dL (3.4-5.0); Alkaline Phosphatase 84 U/L (45-117); Bilirubin Total 0.3 mg/dL (0.2-1.0); C-Reactive Protein 8.78 mg/L (<3.00); Protein, Total 7.3 g/dL (6.4-8.2)
[2018-09-09] MEDS: ASPIRIN EC 81 MG TAB PO SCH (08:40)
[2018-09-09] MEDS: CLOPIDOGREL 75 MG TABLET PO SCH (08:41)
[2018-09-09] MEDS: ENOXAPARIN 40 MG/0.4 ML SQ SCH (08:41)
[2018-09-09] MEDS: TOPIRAMATE 25 MG TAB PO SCH ×2 (08:41→20:05)
[2018-09-09] MEDS ORDERED: POTASSIUM CL SA 10 MEQ TAB PO ONE (09:00)
[2018-09-09] MEDS: ACETAMINOPHEN 500 MG TAB PO PRN ×2 (17:14→22:40)
--- NOTE | 2018-09-09 18:49 | PN ---
Subjective: Currently, the patient lying in bed. She looks comfortable. She has no chest pain. No abdominal pain. She continued to have numbness on her left side of her face. She has intermittent headache. There is no dizziness anymore. No blurred vision. The family at the bedside. Review of Systems: Otherwise negative. Objective: Vital Signs: Blood pressure 137/75, respiratory rate 18, pulse 76, temperature 98.3. General: The patient is alert and oriented x3. Does not look in distress. HEENT: Atraumatic, normocephalic. PERRLA. Oral mucosa moist. Neck: Supple. No JVD. No carotid bruits. Chest: Clear to auscultation. Good air entry. Heart: Regular rate and rhythm. S1, S2 normal. No gallop or murmur. Abdomen: Soft, nontender. No masses. No hepatosplenomegaly. Positive bowel sounds. Extremities: No clubbing, cyanosis, or edema. No calf tenderness. Neurologic: Grossly intact. Cranial nerves 2 through 12 are intact. Normal sensation. Normal refl exes. Normal muscle except in the left, sates she does have loss of sensation. Laboratory Data: Today showed CBC was normal except for ESR of 53 and hemoglobin 11.9. Chemistry wi thin normal except for a glucose 116. C-reactive protein 8.78. Assessment And Plan: 1.Left occipital acute cerebrovascular accident, which most likely is the reason for her initial blo od pressure. The patient currently on aspirin, Plavix, statin. Appreciate Dr. Kwok recommendation. Echocardiogram done but results still pending. Neck and brain MRI without any abnormalities. 2.Hemianopia of the left eye most likely secondary to her recent stroke. 3.Elevated ESR and CRP upon repeat today again according to Dr. Kwok. We will proceed with biopsy for the temporal artery to rule out temporal arteritis. I placed a consult for Dr. New to schedule that tomorrow. 4.The patient's Keppra was on hold. Currently, she is on Topamax. No seizure activity at this poin t. 5.Workup for stroke is still pending with serum protein electrophoresis, protein S, protein C, p-ANC A, c-ANCA, and Factor 5 Leiden, as well as antiphospholipid antibody panel. 6.Discharge plan will depend on Neurology recommendation after the temporal artery biopsy. Discusse d with patient and family. GILA/PARAMJIT Voice ID: [id number] Report ID: [id number]
[2018-09-09] MEDS: ATORVASTATIN 40 MG TAB PO SCH (20:05)
[2018-09-10] MEDS: NA CHLORIDE 0.9% 1,000 ML IV SCH ×4 (04:02→16:27)
[2018-09-10 06:23] LABS: Absolute Lymphocytes (CBC) 2.2 K/uL (0.7-4.9); Absolute Monocytes 0.4 K/uL (0.1-1.3); Absolute Neutrophil 4.2 K/uL (1.8-8.0); Basophils % 0.4 % (0-1.3); Eosinophils % 2.4 % (0-4.4); Lymphocytes % 31.7 % (15.3-44.8); MCH 30.6 pg (27.0-35.0); MCV 89.5 fL (80-100); MPV 9.6 fL (7.6-11.3); Monocytes % 5.3 % (3.3-12.3); RBC Red Blood Cell Count 3.81 M/uL (3.86-4.86)
[2018-09-10 06:45] LABS: ALT/SGPT 36 U/L (12-78); AST/SGOT 26 U/L (15-37); Alkaline Phosphatase 87 U/L (45-117); BUN Blood Urea Nitrogen 10 mg/dL (7-18); Bicarbonate 22 mmol/L (21-32); Bilirubin Total 0.4 mg/dL (0.2-1.0); Glucose Level 105 mg/dL (74-106); Potassium 4.1 mmol/L (3.5-5.1); Sodium Level 141 mmol/L (136-145)
[2018-09-10 06:46] LABS: Albumin 3.2 g/dL (3.4-5.0); Protein, Total 7.1 g/dL (6.4-8.2)
[2018-09-10] MEDS: ACETAMINOPHEN 500 MG TAB PO PRN ×2 (07:20→16:26)
--- NOTE | 2018-09-10 07:58 | ECHO ---
HEIGHT: 5 ft 4 in WEIGHT: 172 lb 0 oz DATE OF STUDY: 09/07/[address]: 2-DIMENSIONAL: YES M.MODE: YES DOPPLER: YES COLOR FLOW: YES TDS: NO PORTABLE: NO DEFINITY: NO BUBBLE STUDY: NO DIAGNOSIS: STROKE CARDIAC HISTORY: CATHERIZATION: NO SURGERY: NO PROSTHETIC VALVE: NO PACEMAKER: NO MEASUREMENTS (cm) DIASTOLIC (NORMALS) SYSTOLIC (NORMALS) IVSd 0.8 (0.6-1.2) LA Diam 2.4 (1.9-4.0) LVEF 62% LVIDd 3.8 (3.5-5.7) LVIDs 2.6 (2.0-3.5) %FS 33% LVPWd 1.0 (0.6-1.2) Ao Diam 2.3 (2.0-3.7) 2 DIMENSIONAL ASSESSMENT: RIGHT ATRIUM: NORMAL LEFT ATRIUM: NORMAL RIGHT VENTRICLE: NORMAL LEFT VENTRICLE: NORMAL TRICUSPID VALVE: NORMAL MITRAL VALVE: NORMAL PULMONIC VALVE: NORMAL AORTIC VALVE: NORMAL PERICARDIAL EFFUSION: NONE AORTIC ROOT: NORMAL LEFT VENTRICULAR WALL MOTION: NORMAL. DOPPLER/COLOR FLOW: NORMAL. COMMENTS: NORMAL 2D ECHOCARDIOGRAM WITH DOPPLER. NO VEGETATION. NO THROMBUS. TECHNOLOGIST: ASHISH SOTO
[2018-09-10] MEDS: TOPIRAMATE 25 MG TAB PO SCH ×2 (09:10→21:05)
[2018-09-10] MEDS: CLOPIDOGREL 75 MG TABLET PO SCH (09:10)
[2018-09-10] MEDS: ASPIRIN EC 81 MG TAB PO SCH (09:10)
[2018-09-10] MEDS: ENOXAPARIN 40 MG/0.4 ML SQ SCH (09:10)
[2018-09-10 16:21] LABS: P-ANCA Anti-Myeloperoxidase Ab <1.0 AI (<1.0)
--- NOTE | 2018-09-10 17:01 | CON ---
Date of Consultation: 09/10/2018 Reason: The patient may need temporal artery biopsy. History Of Present Illness: The patient is a 43-year-old female, who was admitted on the with left-sided visual loss with a history of epilepsy and she had a terrible headache associ ated with it. She came to the emergency room and she has had workup done. She has elevated sediment ation rate and C-reactive protein, and I was consulted to see if patient needs temporal artery biopsy . The patient is awake, alert, no complaint at this time. Review of Systems: Otherwise unremarkable. Past Medical History: Epilepsy. Past Surgical History: Prolapsed bladder, partial hysterectomy, tubal ligation, appendectomy, ovaria n cystectomy, prolapsed bladder surgery. Allergies: NONE. Social History: She does not smoke or drink alcohol. Family History: Significant for hypertension, diabetes. Physical Examination: Vital Signs: Stable. She is afebrile. General: She is awake, alert, and oriented x3. Head and Neck: No masses. Chest: Clear. Heart: S1, S2. Abdomen: Soft. Extremities: Neurovascularly intact. Neuro: Nonfocal. Laboratory Data: At this time, her white count is 7. Sedimentation rate is 53. C-reactive protein was 13.4. She had a brain MRI with an MRA, which was unremarkable. She had neck MRA, which was unre markable. She had a head CT today, which was unremarkable. She was seen by Dr. Kwok and he believe s the patient has a cerebral infarction on the right occipital lobe. She is getting a hypercoagulabl e workup done. She had an echo and the echo was negative. No thrombus. No vegetation. Assessment: A 43-year-old female with vision changes, elevated sedimentation rate, elevated C-reacti ve protein, however, also cerebral infarction possible. Recommendation: Before doing a temporal artery biopsy, I would like to discuss the case with Dr. Nikita rivera, to see what his opinion is. I do think the patient would benefit from steroids at this time, and if he agrees that the stroke does not account for vision symptoms, then we will proceed with tempora l artery biopsy. Plan of care, the risks, benefits, and alternatives were discussed in detail with paulina lindsay patient and family. AIDAN/PARAMJIT Voice ID: [id number] Report ID: [id number]
[2018-09-10] MEDS ORDERED: SODIUM CHLORIDE 0.9% 10ML INJ IV PRN (17:23)
--- NOTE | 2018-09-10 17:29 | P.PN ---
Subjective Date of Service: 09/10/18 Chief Complaint: Left sided vision loss Patient seen and examined at bedside. at bedside. Case discussed with nursing staff and Dr. Kwok. Patient reports no changes in her symptoms of vision loss or headache. Also reporting facial numbness/tingling on left side of the face. No facial drooping, speech changes noted. Review of Systems As above Physical Examination - Vital Signs Temperature: 98 F Blood Pressure: 134/75 Pulse: 72 Respirations: 18 Pulse Ox (%): 96 - Physical Exam General: Alert, In no apparent distress HEENT: Atraumatic, PERRLA, EOMI Neck: Supple, JVD not distended Respiratory: Clear to auscultation bilaterally, Normal air movement Cardiovascular: Regular rate/rhythm, Normal S1 S2 Gastrointestinal: Normal bowel sounds, No tenderness Musculoskeletal: No tenderness Integumentary: No rashes Neurological: Normal speech, Normal tone, Normal affect - Studies Medications List Reviewed: Yes Assessment And Plan - Current Problems (Diagnosis) (1) Headache Current Visit: Yes Status: Acute Plan: Patient with a persistent headache since admission. Currently on Topamax. This could be secondary to stroke though inflammatory markers positive and potential for temporal arteritis. Dr. New, general surgery consulted for a temporal artery biopsy. Case discussed with Dr. fox, he is in agreement. We will start patient on prednisone 20 mg oral twice a day and await temporal artery biopsy tomorrow (2) CVA (cerebral vascular accident) Current Visit: Yes Status: Acute Plan: Patient noted to have a left occipital acute CVA. Likely the cause of vision changes. Stroke protocol initiated patient started on high-intensity stat, aspirin and Plavix. Neurology consult, recommendations appreciated PT and OT ordered Barium swallow study ordered. Keep patient NPO till swallow study done. Neck/brain MRA are without any acute abnormalities. Echo pending Qualifiers: CVA mechanism: unspecified Qualified Code(s): I63.9 - Cerebral infarction, unspecified (3) Hemianopia of left eye Onset Date: 09/07/18 Current Visit: Yes Status: Acute Plan: CT negative for bleed MRI, MRA neck/brain w/ acute CVA in occipital region Neurology, Dr. Kwok consulted, recommendations pre (4) Seizure disorder Onset Date: 09/07/18 Current Visit: Yes Status: Suspected Plan: No evidence of seizure at this time Patient has not been on her home medication of keppra since 04/2018 as she ran out. Will hold off on seizure medication Her neurologist, Dr. Kwok consulted.
[2018-09-10] MEDS: ATORVASTATIN 40 MG TAB PO SCH (21:05)
[2018-09-10] MEDS: predniSONE 20 MG TAB PO SCH (21:05)
[2018-09-11] MEDS ORDERED: LOPERAMIDE HCL 2 MG CAPSULE PO PRN (00:08)
[2018-09-11] MEDS: NA CHLORIDE 0.9% 1,000 ML IV SCH ×3 (01:06→23:13)
[2018-09-11 06:46] LABS: Absolute Lymphocytes (CBC) 1.3 K/uL (0.7-4.9); Absolute Monocytes 0.1 K/uL (0.1-1.3); Absolute Neutrophil 5.8 K/uL (1.8-8.0); Basophils % 0.2 % (0-1.3); Eosinophils % 0.2 % (0-4.4); Hematocrit 36.3 % (36.0-45.0); Lymphocytes % 17.6 % (15.3-44.8); MCH 30.4 pg (27.0-35.0); MCV 88.8 fL (80-100); MPV 10.2 fL (7.6-11.3); Monocytes % 0.9 % (3.3-12.3); RBC Red Blood Cell Count 4.09 M/uL (3.86-4.86)
[2018-09-11 06:59] LABS: ALT/SGPT 55 U/L (12-78); AST/SGOT 36 U/L (15-37); Albumin 3.6 g/dL (3.4-5.0); Alkaline Phosphatase 90 U/L (45-117); BUN Blood Urea Nitrogen 12 mg/dL (7-18); Bicarbonate 19 mmol/L (21-32); Bilirubin Total 0.4 mg/dL (0.2-1.0); Glucose Level 146 mg/dL (74-106); Phosphorus 2.4 mg/dL (2.5-4.9); Potassium 3.6 mmol/L (3.5-5.1); Protein, Total 8.1 g/dL (6.4-8.2); Sodium Level 137 mmol/L (136-145)
[2018-09-11] MEDS ORDERED: CEFAZOLIN/NS 1gm 1 GM/50 ML BAG IVPB SCH (07:00)
[2018-09-11] MEDS ORDERED: CEFAZOLIN/SWI 1gm 1 GM/10 ML SYR IVP SCH (07:00)
[2018-09-11] MEDS ORDERED: MIDAZOLAM HCL 2 MG/2 ML INJ ONE ×2 (08:48→10:24)
[2018-09-11] MEDS ORDERED: PROPOFOL 200 MG/20 ML VIAL IV ONE (08:48)
[2018-09-11] MEDS ORDERED: LIDOCAINE 1% MPF 5 ML VIAL ONE (08:49)
[2018-09-11] MEDS ORDERED: FENTANYL CITR 100 MCG/2 ML ONE ×2 (08:49→10:24)
[2018-09-11] MEDS ORDERED: LIDOCAINE 1% MPF 30 ML VIAL ONE (09:00)
[2018-09-11] MEDS: CEFAZOLIN/SWI 1gm 1 GM/10 ML SYR ONE ×2 (09:40→10:05)
[2018-09-11] MEDS ORDERED: NA CHLORIDE 0.9% 1,000 ML ONE (10:00)
--- NOTE | 2018-09-11 10:37 | P.OP ---
Preoperative diagnosis: Left Eye vision change, R/O Temporal arteritis Postoperative diagnosis: same Primary procedure: Left Temporal Artery Biopsy Anesthesia: MAC Estimated blood loss: min Specimen: Left Temporal Artery Findings: as above Complications: None Transferred to: Recovery Room Condition: Good
[2018-09-11] MEDS: TOPIRAMATE 25 MG TAB PO SCH ×2 (12:15→21:24)
[2018-09-11] MEDS: PANTOPRAZOLE 40 MG INJ IVP SCH (12:15)
[2018-09-11] MEDS: CLOPIDOGREL 75 MG TABLET PO SCH (12:15)
[2018-09-11] MEDS: predniSONE 20 MG TAB PO SCH ×2 (12:15→21:24)
[2018-09-11] MEDS: ASPIRIN EC 81 MG TAB PO SCH (12:15)
[2018-09-11] MEDS: ACETAMINOPHEN 500 MG TAB PO PRN ×2 (14:36→18:08)
[2018-09-11 14:51] LABS: Protein C Antigen 126 % (70-140)
--- NOTE | 2018-09-11 17:30 | P.PN ---
Subjective Date of Service: 09/11/18 Chief Complaint: Left sided vision loss Patient seen and examined at bedside. at bedside. Case discussed with nursing staff and Dr. Kwok. Patient reports no changes in her symptoms of vision loss or headache. No facial drooping, speech changes noted. Review of Systems As noted above Physical Examination - Vital Signs Temperature: 98.2 F Blood Pressure: 110/64 Pulse: 62 Respirations: 16 Pulse Ox (%): 100 - Physical Exam General: Alert, In no apparent distress, Oriented x3 HEENT: Atraumatic, PERRLA, EOMI Neck: Supple, JVD not distended Respiratory: Clear to auscultation bilaterally, Normal air movement Cardiovascular: Regular rate/rhythm, Normal S1 S2 Gastrointestinal: Normal bowel sounds, No tenderness Musculoskeletal: No tenderness Integumentary: No rashes Neurological: Normal speech, Normal tone, Normal affect - Studies Medications List Reviewed: Yes Assessment And Plan - Current Problems (Diagnosis) (1) Headache Current Visit: Yes Status: Acute Plan: Patient with a persistent headache since admission. Currently on Topamax. This could be secondary to stroke though inflammatory markers positive and potential for temporal arteritis. She is status post temporal artery biopsy today with Dr. New, general surgery. Continue prednisone 20 mg oral twice a day and await temporal artery biopsy results. The results may take longer, [place] patient stable for discharge. Will discharge home with outpatient follow up with Neurology for biopsy results. (2) CVA (cerebral vascular accident) Current Visit: Yes Status: Acute Plan: Patient noted to have a left occipital acute CVA. Likely the cause of vision changes. patient on high-intensity statin, aspirin and Plavix. Neurology consult, recommendations appreciated PT and OT ordered Barium swallow study normal. Continue heart healthy diet. Neck/brain MRA are without any acute abnormalities. Echo within normal limits Qualifiers: CVA mechanism: unspecified Qualified Code(s): I63.9 - Cerebral infarction, unspecified (3) Hemianopia of left eye Onset Date: 09/07/18 Current Visit: Yes Status: Acute Plan: CT negative for bleed MRI, MRA neck/brain w/ acute CVA in occipital region Neurology, Dr. Kwok consulted, recommendations appreciated (4) Seizure disorder Onset Date: 09/07/18 Current Visit: Yes Status: Suspected Plan: No evidence of seizure at this time Patient has not been on her home medication of keppra since 04/2018 as she ran out. Will hold off on seizure medication Her neurologist, Dr. Kwok consulted.
[2018-09-11] MEDS: POTASS/SODIUM PHOSPHATE 1 PKT POWD.PACK PO SCH ×2 (21:24→23:13)
[2018-09-11] MEDS: ATORVASTATIN 40 MG TAB PO SCH (21:24)
--- NOTE | 2018-09-11 22:15 | OP ---
Date of Procedure: 09/11/2018 Surgeon: Christiano New MD Preoperative Diagnoses: Left vision change, headache, elevated sedimentation rate and C-reactive pro tein, rule out temporal arteritis. Postoperative Diagnoses: Left vision change, headache, elevated sedimentation rate and C-reactive pr otein, rule out temporal arteritis. Procedure: Left temporal artery biopsy, Doppler-guided. Estimated Blood Loss: Minimal. Specimen: Left temporal artery. Finding: As above. Anesthesia: MAC. Complications: None. Disposition: The patient tolerated the procedure in stable condition, taken to Recovery in good gene ral condition. Operative Note: The patient was brought to the OR and placed in supine position. MAC anesthesia was begun. The patient was prepped and draped in usual sterile fashion. Doppler was used to localize t he temporal artery. Then, lidocaine 1% infiltrated locally. A 15-blade was used to make a 4 cm inci maria g, anterior and superior to the left ear. Subcutaneous tissue divided. Deep to the subcutaneous tissue a temporary identify, proximal and distal control obtained and a 4 cm segment excised, sent to Pathology. Both ends tied off with 4-0 silk. Wound irrigated. Bleeding controlled with cautery. The 4-0 chromic used to approximate the subcutaneous tissue and close the skin. Sterile dressing was applied. The patient was awakened and taken to Recovery in good general conditi on. AIDAN/PARAMJIT Voice ID: [id number] Report ID: [id number]
[2018-09-11 23:35] LABS: Albumin, (SPE) 3.8 g/dL (3.8-4.8); Alpha-1-Globulins 0.4 g/dL (0.2-0.3); Alpha-2-Globulins 0.8 g/dL (0.5-0.9); Gamma Globulins 1.6 g/dL (0.8-1.7); INTERPRETATION REPORT
[2018-09-12] MEDS: POTASS/SODIUM PHOSPHATE 1 PKT POWD.PACK PO SCH (01:05)
[2018-09-12 06:26] LABS: BUN Blood Urea Nitrogen 9 mg/dL (7-18); Bicarbonate 20 mmol/L (21-32); Glucose Level 140 mg/dL (74-106); Phosphorus 2.8 mg/dL (2.5-4.9); Potassium 3.9 mmol/L (3.5-5.1); Sodium Level 140 mmol/L (136-145)
[2018-09-12] MEDS: TOPIRAMATE 25 MG TAB PO SCH ×2 (08:04→20:24)
[2018-09-12] MEDS: predniSONE 20 MG TAB PO SCH ×2 (08:04→20:24)
[2018-09-12] MEDS: CLOPIDOGREL 75 MG TABLET PO SCH (08:05)
[2018-09-12] MEDS: ASPIRIN EC 81 MG TAB PO SCH (08:05)
[2018-09-12] MEDS: ACETAMINOPHEN 500 MG TAB PO PRN ×2 (08:05→20:27)
[2018-09-12] MEDS: ENOXAPARIN 40 MG/0.4 ML SQ SCH (08:06)
[2018-09-12] MEDS: PANTOPRAZOLE 40 MG INJ IVP SCH (08:06)
[2018-09-12] MEDS ORDERED: POTASSIUM CL SA 10 MEQ TAB PO ONE (09:00)
[2018-09-12] MEDS: NA CHLORIDE 0.9% 1,000 ML IV SCH ×2 (10:15→20:25)
--- NOTE | 2018-09-12 12:37 | PN ---
Date of Progress Note: 09/12/2018 Subjective: The patient is complaining of some incisional pain. Dressing, Steri-Strips is clean dry and intact. She did have some oozing last night and the Steri-Strips had to be changed. Objective: Vital Signs: Stable. Afebrile. On physical exam, there is no evidence of bruising or hematoma and the Steri-Strips that was placed w as clean, dry, and intact. Assessment: Status post left temporal artery biopsy. Recommendation: Once medically stable, patient can be discharged. Follow up with me in 2 weeks. Fo llow up with Dr. Kwok in 1 week. /MODL Voice ID: [id number] Report ID: [id number]
--- NOTE | 2018-09-12 14:51 | P.PN ---
Subjective Date of Service: 09/12/18 Chief Complaint: Left sided vision loss Patient seen and examined at bedside. at bedside. Case discussed with nursing staff, Dr. lyles and Dr. Kwok. Patient reports no changes in her symptoms of vision loss or headache. No facial drooping, speech changes noted. Review of Systems As noted above Physical Examination - Vital Signs Temperature: 98.2 F Blood Pressure: 133/65 Pulse: 78 Respirations: 20 Pulse Ox (%): 98 - Physical Exam General: Alert, In no apparent distress, Mild distress (Due to vision change) HEENT: Atraumatic, PERRLA, EOMI Neck: Supple, JVD not distended Respiratory: Clear to auscultation bilaterally, Normal air movement Cardiovascular: Regular rate/rhythm, Normal S1 S2 Gastrointestinal: Normal bowel sounds, No tenderness Musculoskeletal: No tenderness Integumentary: No rashes Neurological: Normal speech, Normal tone, Normal affect - Studies Medications List Reviewed: Yes Assessment And Plan - Current Problems (Diagnosis) (1) Headache Current Visit: Yes Status: Acute Plan: Patient with a persistent headache since admission. Currently on Topamax. This could be secondary to stroke though inflammatory markers positive and potential for temporal arteritis. She is status post temporal artery biopsy today with Dr. New, general surgery. Continue prednisone 20 mg oral twice a day and await temporal artery biopsy results. The results may take longer, once patient stable for discharge, Will discharge home with outpatient follow up with Neurology for biopsy results. (2) CVA (cerebral vascular accident) Current Visit: Yes Status: Acute Plan: Patient noted to have a left occipital acute CVA. Likely the cause of vision changes. patient on high-intensity statin, aspirin and Plavix. Neurology consult, recommendations appreciated PT and OT ordered Barium swallow study normal. Continue heart healthy diet. Neck/brain MRA are without any acute abnormalities. Echo within normal limits Qualifiers: CVA mechanism: unspecified Qualified Code(s): I63.9 - Cerebral infarction, unspecified (3) Hemianopia of left eye Onset Date: 09/07/18 Current Visit: Yes Status: Acute Plan: CT negative for bleed MRI, MRA neck/brain w/ acute CVA in occipital region Neurology, Dr. Kwok consulted, recommendations appreciated Discussed vision rehab, only using apps on the phone (4) Seizure disorder Onset Date: 09/07/18 Current Visit: Yes Status: Suspected Plan: No evidence of seizure at this time Patient has not been on her home medication of keppra since 04/2018 as she ran out. Will hold off on seizure medication Her neurologist, Dr. Kwok consulted. - Plan Likely discharge home tomorrow, after PT complete evaluation as patient stated she was falling over to the left wall walking. If this is actually the case, may need further imaging as this would be a new symptom. Discharge Plan: Home Plan to discharge in: 24 Hours
[2018-09-12] MEDS: ATORVASTATIN 40 MG TAB PO SCH (20:24)
[2018-09-13] MEDS: NA CHLORIDE 0.9% 1,000 ML IV SCH (05:00)
[2018-09-13 06:02] LABS: BUN Blood Urea Nitrogen 10 mg/dL (7-18); Bicarbonate 21 mmol/L (21-32); Glucose Level 140 mg/dL (74-106); Magnesium 1.7 mg/dL (1.8-2.4); Potassium 3.7 mmol/L (3.5-5.1); Sodium Level 140 mmol/L (136-145)
[2018-09-13] MEDS ORDERED: POTASSIUM CL SA 10 MEQ TAB PO ONE (06:16)
[2018-09-13] MEDS ORDERED: MAGNESIUM SULFATE 1 gm IVPB 1 GM/100 ML BAG IV ONE (06:17)
[2018-09-13] MEDS: ACETAMINOPHEN 500 MG TAB PO PRN (06:45)
[2018-09-13] MEDS: TOPIRAMATE 25 MG TAB PO SCH (11:18)
[2018-09-13] MEDS: CLOPIDOGREL 75 MG TABLET PO SCH (11:18)
[2018-09-13] MEDS: ASPIRIN EC 81 MG TAB PO SCH (11:18)
[2018-09-13] MEDS: predniSONE 20 MG TAB PO SCH (11:18)
[2018-09-13] MEDS: ENOXAPARIN 40 MG/0.4 ML SQ SCH (11:18)
[2018-09-13] MEDS: PANTOPRAZOLE 40 MG INJ IVP SCH (11:19)
[2018-09-13 11:25] VITALS: O2SAT 98
--- NOTE | 2018-09-13 13:58 | P.DS ---
Admission Date: 09/06/18 Discharge Date: 09/13/18 Primary Care Provider: Dr. Colón Disposition: ROUTINE DISCHARGE Discharge Condition: GOOD Reason for Admission: Left sided vision loss Consultations: Neurology-Dr. Kwok Surgery-Dr. New Procedures: Surgery: Date of Procedure: 09/11/2018 Surgeon: Christiano New MD Preoperative Diagnoses: Left vision change, headache, elevated sedimentation rate and C-reactive protein, rule out temporal arteritis. Postoperative Diagnoses: Left vision change, headache, elevated sedimentation rate and C-reactive protein, rule out temporal arteritis. Procedure: Left temporal artery biopsy, Doppler-guided. Estimated Blood Loss: Minimal. Specimen: Left temporal artery. Echocardiogram: Ejection fraction 62% LEFT VENTRICULAR WALL MOTION: NORMAL. DOPPLER/COLOR FLOW: NORMAL. COMMENTS: NORMAL 2D ECHOCARDIOGRAM WITH DOPPLER. NO VEGETATION. NO THROMBUS. Carotid Doppler: COMPARISON: None. TECHNIQUE: Real-time sonographic evaluation of both carotid systems was performed. Ramírez scale and Doppler interrogation were performed with waveform tracing bilaterally. FINDINGS: Normal high resistance waveforms are noted in both external carotid arteries. The common carotid arteries and internal carotid arteries show normal low resistance waveforms. No significant plaquing is seen on visual inspection. The mid and distal right internal carotid artery velocity values are elevated relative to the left. ICA/ CCA ratios are 1.7 on the right and 1.2 on the left. Antegrade flow seen in both vertebral arteries. Velocity values and ratios were recorded and are retained in the patient's imaging records. IMPRESSION: Mid and distal ICA velocity values are elevated with an elevated right side ICA/ CCA ratio. On visual inspection significant stenosis is not evident. Follow-up MR angiography of the cervical carotid vasculature could be performed for further characterization. No significant stenosis or significant disease on the left. MRI brain: COMPARISON: Head angio dated 09/06/2018; MRA Head Wo Cont dated 12/21/2016; Brain Wo Cont dated 12/19/2016; MRA Neck W/Wo Cont dated 12/21/2016; Head Brain Wo Cont dated 09/06/2018 TECHNIQUE: Multi-sequence, multiplanar MR imaging of the brain was performed with contrast. FINDINGS: No intracranial hemorrhage, hydrocephalus, extra-axial fluid collection. No edema or shift of midline structures. No intracranial mass. 3 cm area of restricted diffusion is noted in the right occipital lobe with diminished ADC map signal compatible with acute CVA.. The midline structures are normally formed. Mastoid air cells and paranasal sinuses are clear. Post-contrast images show no abnormal enhancement to suggest tumor or infection. 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 MRI/MRA brain: COMPARISON: MRI of February 04 TECHNIQUE: Axial and coronal 3D [id number] image acquisition was performed. 3D rotational images were generated with source and reconstruction images reviewed. Horizontal and vertical axis rotational views generated using MIP protocol. FINDINGS: Major venous sinuses are patent. No aneurysm or vascular malformation. No specific branch occlusion or significant atherosclerotic change in the vascular distribution of the known acute right occipital lobe CVA. Basilar artery and distal vertebral arteries are unremarkable. No significant posterior cerebral artery disease identifiable. No significant vascular disease in the right middle cerebral artery distribution. No vasculitis or other suspicious vascular finding identifiable. IMPRESSION: MRA head examination shows no significant or suspicious finding. 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 Patient admitted for further evaluation. Neurology consulted. MRI shows nonhemorrhagic left occipital CVA. Hospital Course: Patient presented with left-sided vision loss and headaches. Patient found to have 3 cm nonhemorrhagic acute left occipital CVA. Patient also had positive inflammatory markers suspicious for temporal arteritis. During the course of her stay patient evaluated by neurology and surgery. A temporal artery biopsy was done. Patient was placed on oral steroids. Patient did well in the course of her stay. At discharge she will continue with aspirin 81 mg daily, Plavix 75 mg 1 pill daily, and Lipitor 40 mg daily. Patient will also continue with prednisone 20 mg 1 pill twice daily. Further adjustment in medication can be done by neurology. Patient will follow up with surgery and neurology in 1 week to follow up temporal artery biopsy and continuation of care. Patient will also need to follow up lab to determine if the patient has temporal arteritis. For now patient will continue with vision rehab. Patient will also continue with folic acid 1 mg daily. Fall precautions recommended. Patient with history of migraine headaches. At discharge she will continue with Topamax 25 mg 1 pill twice daily. Patient will follow up with neurology to further monitor. Patient may have underlying GERD. Since the patient is taking steroids the patient will continue with Protonix 40 mg 1 pill once daily. Patient with history of Topamax. Patient has been off medication since April of 2018. Neurology recommends to discontinue medication at this time. This can be further monitored and addressed by neurology. Patient has hyperlipidemia. At discharge patient will continue with Lipitor 40 mg daily. Vital Signs/Physical Exam: Temp Pulse Resp BP Pulse Ox 96.9 F 71 16 145/72 H 100 09/13/18 12:00 09/13/18 12:00 09/13/18 12:00 09/13/18 12:00 09/13/18 12:00 General: Alert, In no apparent distress, Oriented x3, Cooperative HEENT: Atraumatic Neck: Supple Respiratory: Clear to auscultation bilaterally, Normal air movement Cardiovascular: Normal pulses, Regular rate/rhythm Gastrointestinal: Normal bowel sounds, Soft and benign, Non-distended Musculoskeletal: No erythema, No tenderness, No warmth Integumentary: No erythema, No warmth, No cyanosis Neurological: Normal speech, Normal strength at 5/5 x4 extr, Normal tone Laboratory Data at Discharge: WBC 7.2 K/uL (4.3-10.9) 09/11/18 06:04 Hgb 12.4 g/dL (12.0-15.0) 09/11/18 06:04 Hct 36.3 % (36.0-45.0) 09/11/18 06:04 Plt Count 261 K/uL (152-406) D 09/11/18 06:04 Sodium 140 mmol/L (136-145) 09/13/18 05:30 Potassium 3.7 mmol/L (3.5-5.1) 09/13/18 05:30 BUN 10 mg/dL (7-18) 09/13/18 05:30 Creatinine 0.60 mg/dL (0.55-1.3) 09/13/18 05:30 Glucose 140 mg/dL (74-106) H 09/13/18 05:30 Phosphorus 2.8 mg/dL (2.5-4.9) 09/12/18 05:26 Magnesium 1.7 mg/dL (1.8-2.4) L 09/13/18 05:30 Total Bilirubin 0.4 mg/dL (0.2-1.0) 09/11/18 06:04 AST 36 U/L (15-37) 09/11/18 06:04 ALT 55 U/L (12-78) 09/11/18 06:04 Alkaline Phosphatase 90 U/L (45-117) 09/11/18 06:04 Triglycerides 111 mg/dL (<150) 09/07/18 05:40 Cholesterol 159 mg/dL (<200) 09/07/18 05:40 HDL Cholesterol 46 mg/dL (40-60) 09/07/18 05:40 Cholesterol/HDL Ratio 3.46 09/07/18 05:40 Home Medications: Aspirin [Aspirin EC 81 MG] 81 mg PO DAILY #90 tablet. 09/13/18 Atorvastatin Calcium [Lipitor] 40 mg PO BEDTIME #30 tab 09/13/18 Clopidogrel Bisulfate [Plavix*] 75 mg PO DAILY #30 tablet 09/13/18 Folic Acid 1 mg PO DAILY #30 tablet 09/13/18 Pantoprazole [Protonix Tab] 40 mg PO DAILY #30 tab 09/13/18 Topiramate [Topamax*] 25 mg PO BID #60 tab 09/13/18 predniSONE [Prednisone*] 20 mg PO BID #30 tab 09/13/18 New Medications: Aspirin [Aspirin EC 81 MG] 81 mg PO DAILY #90 tablet. Atorvastatin Calcium [Lipitor] 40 mg PO BEDTIME #30 tab Clopidogrel Bisulfate [Plavix*] 75 mg PO DAILY #30 tablet Folic Acid 1 mg PO DAILY #30 tablet Pantoprazole [Protonix Tab] 40 mg PO DAILY #30 tab predniSONE [Prednisone*] 20 mg PO BID #30 tab Topiramate [Topamax*] 25 mg PO BID #60 tab Patient Discharge Instructions: 1. Patient will need to follow up with a PCP in 1 week to follow up this hospitalization. 2. Patient presented with left- sided vision loss and headaches. Patient found to have 3 cm nonhemorrhagic acute left occipital CVA. Patient also had positive inflammatory markers suspicious for temporal arteritis. During the course of her stay patient evaluated by neurology and surgery. A temporal artery biopsy was done. Patient was placed on oral steroids. Patient did well in the course of her stay. At discharge she will continue with aspirin 81 mg daily, Plavix 75 mg 1 pill daily, and Lipitor 40 mg daily. Patient will also continue with prednisone 20 mg 1 pill twice daily. Further adjustment in medication can be done by neurology. Patient will follow up with surgery and neurology in 1 week to follow up temporal artery biopsy and continuation of care. Patient will also need to follow up lab to determine if the patient has temporal arteritis. For now patient will continue with vision rehab. Patient will also continue with folic acid 1 mg daily. Fall precautions recommended. 3. Patient with history of migraine headaches. At discharge she will continue with Topamax 25 mg 1 pill twice daily. Patient will follow up with neurology to further monitor. 4. Patient may have underlying GERD. Since the patient is taking steroids the patient will continue with Protonix 40 mg 1 pill once daily. 5. Patient with history of Topamax. Patient has been off medication since April of 2018. Neurology recommends to discontinue medication at this time. This can be further monitored and addressed by neurology. Diet: AHA Activity: Fall precautions Followup: Mauri Kwok MD [ACTIVE - CAN ADMIT] - Jarad Pichardo MD [Primary Care Provider] - Christiano New MD [ACTIVE - CAN ADMIT] - 1-2 Weeks Time spent managing pt's care (in minutes): 55
[2018-09-13 17:17] VITALS: BP 129/74; TEMP 97.6
== END 2018-09-13 18:47 | disposition home or self-care (01) | DRG 42 ==
LOC: ER 03:59 → ERHOLD 09:17 → 4TH 12:56
PROVIDERS: ADMIT Family Medicine; ATTEND Family Medicine
PROC: 03BT0ZX Excision of Left Temporal Artery, Open Approach, Diagnostic (ICD-10-PCS; principal; 2018-09-11 10:15)
DX: I63.9 Cerebral infarction, unspecified (principal); G46.8 Other vascular syndromes of brain in cerebrovascular diseases; G40.909 Epilepsy, unspecified, not intractable, without status epilepticus; G43.909 Migraine, unspecified, not intractable, without status migrainosus; G44.89 Other headache syndrome; E78.5 Hyperlipidemia, unspecified; M31.6 Other giant cell arteritis; K21.9 Gastro-esophageal reflux disease without esophagitis; R20.2 Paresthesia of skin; H53.462 Homonymous bilateral field defects, left side
CPT/HCPCS: 36415; 70450; 70496; 70544; 70549; 70553; 71045; 74230; 80048; 80053; 80061; 81003; 81025; 81241; 82306; 82607; 82746; 82962; 83090; 83735; 84100; 84165; 84443; 85025; 85300; 85302; 85305; 85306; 85652; 86021; 86038; 86140; 86147; 86592; 88305; 93306; 93880; 94760; 96361; 96374; 96375; 97002; 97163; 99285; A9577; C9113; J0515; J0690; J1650; J2175; J2250; J2405; J2704; J2765; J3010; J3475; J7030; J7512; Q9967

== ENCOUNTER 2019-02-17 20:46 | Inpatient (IN) | payer OTHER, SELFPAY ==
[2019-02-17 21:58] LABS: Protime INR 1.04
[2019-02-17 22:02] LABS: Absolute Lymphocytes (CBC) 2.4 K/uL (0.7-4.9); Absolute Monocytes 0.4 K/uL (0.1-1.3); Absolute Neutrophil 4.1 K/uL (1.8-8.0); Basophils % 0.4 % (0-1.3); Eosinophils % 1.9 % (0-4.4); Hematocrit 34.1 % (36.0-45.0); Lymphocytes % 33.9 % (15.3-44.8); MPV 10.3 fL (7.6-11.3); Monocytes % 5.4 % (3.3-12.3); RBC Red Blood Cell Count 3.85 M/uL (3.86-4.86)
[2019-02-17] MEDS ORDERED: METOCLOPRAMIDE 10 MG/2mL INJ ONE (22:06)
[2019-02-17 22:12] LABS: Albumin 3.6 g/dL (3.4-5.0); Bilirubin Direct 0.1 mg/dL (0-0.2); Bilirubin Total 0.3 mg/dL (0.2-1.0); C-Reactive Protein 9.22 mg/L (<3.00); Potassium 3.7 mmol/L (3.5-5.1); Protein, Total 7.5 g/dL (6.4-8.2)
[2019-02-18 01:26] LABS: Urine Blood NEGATIVE (NEG); Urine Glucose NEGATIVE (NEG); Urine Protein NEGATIVE (NEG); Urine Specific Gravity 1.025 (1.005-1.030); Urine pH 6.5 (5.0-7.0)
--- NOTE | 2019-02-18 02:43 | EDPHYS ---
Physician Documentation [facility] Name: Sarai Mohan Age: 43 yrs Sex: Female : 1975 Arrival Date: 02/17/2019 Time: 21:04 Bed 17 Private MD: ED Physician David Krishna HPI: 02/17 22:00 This 43 yrs old Female presents to ER via Ambulatory with complaints of pm1 Headache, Right sided blurry vision. 22:00 The patient complains of pain to the left mandaeism. The patient describes the headache as pm1 aching. Onset: The symptoms/episode began/occurred last night, at 22:00. Associated signs and symptoms: Pertinent negatives: fever, nausea, rash, vomiting, weakness. Severity of symptoms: in the emergency department the pain is unchanged. Headache History: The patient has had previous headaches and this one is similar to previous episodes, and this one is more severe than previous episodes. The symptoms are alleviated by nothing. the symptoms are aggravated by nothing. The patient has experienced similar episodes in the past, multiple times, Since 09/06/2018 CVA. The patient has been recently seen by a physician: Dr. Bruce 2 weeks ago for blurry vision. MRI preformed without any acute findings. Dr. Bruce told her it is not her eyes and needs to follow up with Dr. Kwok. Patient saw Dr. Kwok 2-3 weeks ago for similar complaints. Patient with history of complex migraines. When she has her migraines, she usually has blurry vision to one side that typically lasts for 1 hour and then resolves. Last night at 2200 her vision to the right side of both eyes became blurry. She had a headache to back of head and left mandaeism that started a few hours later. Patient though that the symptoms would resolve in one hour as they typically do but it did not improve. 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 - Social history:: Smoking status: Patient/guardian denies using tobacco. - Ebola Screening: : No symptoms or risks identified at this time. ROS: 22:00 Constitutional: Negative for fever, chills, and weight loss. pm1 22:00 ENT: Negative for injury, pain, and discharge, Neck: Negative for injury, pain, and swelling, Cardiovascular: Negative for chest pain, palpitations, and edema, Respiratory: Negative for shortness of breath, cough, wheezing, and pleuritic chest pain, Abdomen/GI: Negative for abdominal pain, nausea, vomiting, diarrhea, and constipation, Back: Negative for injury and pain, : Negative for injury, bleeding, discharge, and swelling, MS/Extremity: Negative for injury and deformity, Skin: Negative for injury, rash, and discoloration. 22:00 Eyes: Positive for blurry vision, right sided bilaterally, Negative for pain. 22:00 Neuro: Positive for headache, of the occipital area and left mandaeism, Negative for dizziness, numbness, tingling, weakness. Exam: 22:00 Constitutional: This is a well developed, well nourished patient who is awake, alert, pm1 and in no acute distress. 22:00 ENT: Nares patent. No nasal discharge, no septal abnormalities noted. Tympanic membranes are normal and external auditory canals are clear. Oropharynx with no redness, swelling, or masses, exudates, or evidence of obstruction, uvula midline. Mucous membranes moist. Neck: Trachea midline, no thyromegaly or masses palpated, and no cervical lymphadenopathy. Supple, full range of motion without nuchal rigidity, or vertebral point tenderness. No Meningismus. Chest/axilla: Normal chest wall appearance and motion. Nontender with no deformity. No lesions are appreciated. Cardiovascular: Regular rate and rhythm with a normal S1 and S2. No gallops, murmurs, or rubs. Normal PMI, no JVD. No pulse deficits. Respiratory: Lungs have equal breath sounds bilaterally, clear to auscultation and percussion. No rales, rhonchi or wheezes noted. No increased work of breathing, no retractions or nasal flaring. Abdomen/GI: Soft, non-tender, with normal bowel sounds. No distension or tympany. No guarding or rebound. No evidence of tenderness throughout. Back: No spinal tenderness. No costovertebral tenderness. Full range of motion. Skin: Warm, dry with normal turgor. Normal color with no rashes, no lesions, and no evidence of cellulitis. MS/ Extremity: Pulses equal, no cyanosis. Neurovascular intact. Full, normal range of motion. 22:00 Head/face: Noted is no obvious of injury or deformity except tenderness, that is mild, of the left mandaeism, Sinus tenderness, is not appreciated. 22:00 Eyes: Visual delgadillo: homonymous blurry vision to right side of both eyes. 22:00 Neuro: Orientation: is normal, Mentation: is normal, Cranial nerves: CN II- XII are normal as tested, Motor: moves all fours, strength is 5/5 in all extremities, Sensation: is normal, no obvious gross deficits. Vital Signs: 21:22 BP 151 / 82; Pulse 65; Resp 18; Temp 98.1(O); Pulse Ox 99% on R/A; Weight 75.75 kg; ea Height 5 ft. 4 in. (162.56 cm); Pain 9/10; 22:16 BP 111 / 78; Pulse 60; Resp 16 S; Pulse Ox 98% on R/A; cc3 23:15 BP 100 / 63; Pulse 61; Resp 17 S; Pulse Ox 98% on R/A; cc3 08 00:48 BP 103 / 71; Pulse 64; Resp 16 S; Pulse Ox 96% on R/A; cc3 01:30 BP 111 / 66; Pulse 60; Resp 17 S; Pulse Ox 96% on R/A; cc3 02:00 BP 107 / 62; Pulse 77; Resp 16 S; Pulse Ox 98% on R/A; cc3 03:30 BP 125 / 69; Pulse 59; Resp 17 S; Pulse Ox 98% on R/A; cc3 04:30 BP 110 / 56; Pulse 57; Resp 17 S; Pulse Ox 98% on R/A; cc3 05:00 BP 112 / 67; Pulse 60; Resp 16 S; Pulse Ox 97% on R/A; cc3 02/17 21:22 Body Mass Index 28.67 (75.75 kg, 162.56 cm) ea MDM: 02/17 21:24 Patient medically screened. pm1 02/18 00:42 Data reviewed: vital signs. Data interpreted: Pulse oximetry: on room air is 98 %. pm1 Interpretation: normal. 01:20 ED course: CT head reviewed: CT head with no acute intracranial abnormalities. Stable pm1 small chronic right occipital infarct. Left message for Dr. Kwok. 02:40 Physician consultation: Jesse Mendez MD was contacted at 02:40, regarding admission, pm1 patient's condition, Admission for MRI in AM and evaluation by Dr. Kwok. 04:09 Physician consultation: Mauri Kwok MD was contacted at 04:11, regarding consult, pm1 patient's condition, and will see patient would like further tests performed, MRI, would like medications started, Aspirin, Patient ins not currently taking aspirin and believes that she was not supposed to be taking it. 02/17 21:40 Order name: Sed Rate; Complete Time: 22:34 pm02/17 21:40 Order name: CRP; Complete Time: 22:24 pm02/17 21:40 Order name: CBC with Diff; Complete Time: 22:34 pm1 02/17 21:40 Order name: PT-INR; Complete Time: 22:24 pm02/17 21:40 Order name: BMP; Complete Time: 22:24 pm1 02/17 21:40 Order name: Hepatic Function; Complete Time: 22:24 pm1 02/17 21:40 Order name: CT Head Brain wo Cont pm1 02/17 21:40 Order name: IV Saline Lock; Complete Time: 21:48 pm1 02/17 21:40 Order name: Urine Dipstick-Ancillary (obtain specimen); Complete Time: 01:12 pm02/17 21:40 Order name: Urine Test (obtain specimen); Complete Time: 21:48 pm1 02/18 01:00 Order name: Urine Dipstick--Ancillary (enter results); Complete Time: 01:28 mw2 02/18 01:00 Order name: Urine --Ancillary (enter results); Complete Time: 01:28 mw2 Administered Medications: 02/17 22:00 Drug: Reglan 10 mg Route: IVP; Site: right antecubital; cc3 22:21 Follow up: Response: No adverse reaction; Pain is unchanged, physician notified cc3 02/18 04:20 Drug: Aspirin 325 mg Route: PO; cc3 04:50 Follow up: Response: No adverse reaction cc3 Disposition: 02/18/19 02:42 Hospitalization ordered by Jesse Mendez for Inpatient Admission. Preliminary diagnosis are Homonymous bilateral field defects, right side, Headache. - Bed requested for Telemetry/MedSurg (Inpatient). - Status is Inpatient Admission. cc3 - Condition is Stable. - Problem is new. - Symptoms are unchanged. UTI on Admission? No Addendum: 02/27/2019 09:35 Co-signature as Attending Physician, David Krishna MD. g s Signatures: Dispatcher [employer] EDMS Cassia Mcclure, RN RN cg Pacheco Hawkins, GRAPE PRUNER GRAPE PRUNER pm1 Adelina Renae RN David Henry ea, MD MD gs Cordel, Charlene cc3 Corrections: (The following items were deleted from the chart) 02/18 04:33 02:42 Hospitalization Ordered by Jesse Mendez MD for Inpatient Admission. Preliminary cg diagnosis is Homonymous bilateral field defects, right sideHeadache. Bed requested for Telemetry/MedSurg (Inpatient). Status is Inpatient Admission. Condition is Stable. Problem is new. Symptoms are unchanged. UTI on Admission? No. pm1 05:35 04:33 02/18/2019 02:42 Hospitalization Ordered by Jesse Mendez MD for Inpatient cc3 Admission. Preliminary diagnosis is Homonymous bilateral field defects, right sideHeadache. Bed requested for Telemetry/MedSurg (Inpatient). Status is Inpatient Admission. Condition is Stable. Problem is new. Symptoms are unchanged. UTI on Admission? No. cg
--- NOTE | 2019-02-18 02:43 | ER ---
Nurse's Notes [facility] Name: Sarai Mohan Age: 43 yrs Sex: Female : 1975 Arrival Date: 02/17/2019 Time: 21:04 Bed 17 Private MD: Diagnosis: Headache;Homonymous bilateral field defects, right side Presentation: 02/17 21:16 Presenting complaint: Patient states: Pt reports at 10 PM yesterday she had complete ea loss of vision, headache, no weakness. Pt reports it lasted for a little while and her vision came back. Pt reports she still has blurry vision and lack of vision to left peripheral. Pt denies falls. Reports previous history of stroke in August 2018. Pt is being seen by Dr. Kwok. Transition of care: patient was not received from another setting of care. Onset of symptoms was February 17, 2019. Risk Assessment: Do you want to hurt yourself or someone else? Patient reports no desire to harm self or others. Initial Sepsis Screen: Does the patient meet any 2 criteria? No. Patient's initial sepsis screen is negative. Does the patient have a suspected source of infection? No. Patient's initial sepsis screen is negative. Care prior to arrival: None. 21:16 Method Of Arrival: Ambulatory ea 21:16 Acuity: VIC 2 ea Triage Assessment: 21:23 Headache History: The patient has had previous headaches and this one is similar to ea previous episodes. General: Appears uncomfortable, Behavior is calm, cooperative, appropriate for age. Pain: Complains of pain in left parietal area, right parietal area and left congregational Pain currently is 9 out of 10 on a pain scale. Quality of pain is described as aching, Pain began yesterday Also complains of no other associated symptoms. Neuro: Level of Consciousness is awake, alert, obeys commands, Oriented to person, place, time, Actuary Clerk are equal bilaterally Moves all extremities. Gait is steady, Speech is normal, Facial symmetry appears normal, Pt reports blurry vision and loss of vision to left peripheral. Cardiovascular: Patient's skin is warm and dry. Respiratory: Airway is patent Respiratory effort is even, unlabored, Respiratory pattern is regular, symmetrical. Derm: Skin is pale. 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 - Social history:: Smoking status: Patient/guardian denies using tobacco. - Ebola Screening: : No symptoms or risks identified at this time. Screenin:19 Abuse screen: Denies threats or abuse. Nutritional screening: No deficits noted. ea Tuberculosis screening: No symptoms or risk factors identified. Fall Risk None identified. Assessment: 21:21 General: Appears in no apparent distress. comfortable, Behavior is calm, cooperative, cc3 appropriate for age. Pain: Complains of pain in head, left parietal area, left congregational. Neuro: Level of Consciousness is awake, alert, obeys commands, Oriented to person, place, time, situation, Appropriate for age. Cardiovascular: Denies chest pain, Patient's skin is warm and dry. Respiratory: Airway is patent Respiratory effort is even, unlabored, Respiratory pattern is regular, symmetrical. GI: Abdomen is round non-distended. : No signs and/or symptoms were reported regarding the genitourinary system. EENT: Reports blurred vision in right side of bilateral eyes. Derm: No signs and/or symptoms reported regarding the dermatologic system. Musculoskeletal: Circulation, motion, and sensation intact. Range of motion: intact in all extremities. 22:18 Reassessment: Patient appears in no apparent distress at this time. Patient and/or cc3 family updated on plan of care and expected duration. Pain level reassessed. Patient is alert, oriented x 3, equal unlabored respirations, skin warm/dry/pink. 23:32 Reassessment: Patient appears in no apparent distress at this time. Patient and/or cc3 family updated on plan of care and expected duration. Pain level reassessed. Patient is alert, oriented x 3, equal unlabored respirations, skin warm/dry/pink. /08 00:30 Reassessment: Patient appears in no apparent distress at this time. Patient and/or cc3 family updated on plan of care and expected duration. Pain level reassessed. Patient is alert, oriented x 3, equal unlabored respirations, skin warm/dry/pink. 01:25 Reassessment: Patient appears in no apparent distress at this time. Patient and/or cc3 family updated on plan of care and expected duration. Pain level reassessed. Patient is alert, oriented x 3, equal unlabored respirations, skin warm/dry/pink. 02:32 Reassessment: Patient appears in no apparent distress at this time. Patient and/or cc3 family updated on plan of care and expected duration. Pain level reassessed. Patient is alert, oriented x 3, equal unlabored respirations, skin warm/dry/pink. 03:18 Reassessment: Patient appears in no apparent distress at this time. Patient and/or cc3 family updated on plan of care and expected duration. Pain level reassessed. Patient is alert, oriented x 3, equal unlabored respirations, skin warm/dry/pink. 04:50 Reassessment: Patient appears in no apparent distress at this time. Patient and/or cc3 family updated on plan of care and expected duration. Pain level reassessed. Patient is alert, oriented x 3, equal unlabored respirations, skin warm/dry/pink. Patient for admission, room available in [facility], report called and handed over to CHUCKY Mendoza for continuity of care and management. Vital Signs: 02/17 21:22 BP 151 / 82; Pulse 65; Resp 18; Temp 98.1(O); Pulse Ox 99% on R/A; Weight 75.75 kg; ea Height 5 ft. 4 in. (162.56 cm); Pain 9/10; 22:16 BP 111 / 78; Pulse 60; Resp 16 S; Pulse Ox 98% on R/A; cc3 23:15 BP 100 / 63; Pulse 61; Resp 17 S; Pulse Ox 98% on R/A; cc3 0408 00:48 BP 103 / 71; Pulse 64; Resp 16 S; Pulse Ox 96% on R/A; cc3 01:30 BP 111 / 66; Pulse 60; Resp 17 S; Pulse Ox 96% on R/A; cc3 02:00 BP 107 / 62; Pulse 77; Resp 16 S; Pulse Ox 98% on R/A; cc3 03:30 BP 125 / 69; Pulse 59; Resp 17 S; Pulse Ox 98% on R/A; cc3 04:30 BP 110 / 56; Pulse 57; Resp 17 S; Pulse Ox 98% on R/A; cc3 05:00 BP 112 / 67; Pulse 60; Resp 16 S; Pulse Ox 97% on R/A; cc3 02/17 21:22 Body Mass Index 28.67 (75.75 kg, 162.56 cm) ea ED Course: 02/17 21:04 Patient arrived in ED. es 21:19 Triage completed. ea 21:19 Arm band placed on right wrist. Patient placed in an exam room, on a stretcher, on ea pulse oximetry. 21:20 Patient has correct armband on for positive identification. Placed in gown. Bed in low cc3 position. Call light in reach. Side rails up X2. night monitor on. Pulse ox on. NIBP on. 21:21 Hemalatha Cartagena is Primary Nurse. cc3 21:24 Pacheco Hawkins NP is PHCP. pm1 21:24 David Krishna MD is Attending Physician. pm1 21:45 Inserted saline lock: 20 gauge in right antecubital area, using aseptic technique. cc3 Blood collected. 02/18 00:39 CT Head Brain wo Cont In Process Unspecified. EDMS 02:42 Jesse Mendez MD is Hospitalizing Provider. pm1 04:50 No provider procedures requiring assistance completed. Patient admitted, IV remains in cc3 place. Administered Medications: 02/17 22:00 Drug: Reglan 10 mg Route: IVP; Site: right antecubital; cc3 22:21 Follow up: Response: No adverse reaction; Pain is unchanged, physician notified cc3 02/18 04:20 Drug: Aspirin 325 mg Route: PO; cc3 04:50 Follow up: Response: No adverse reaction cc3 Outcome: 02:42 Decision to Hospitalize by Provider. pm1 04:50 Admitted to Tele accompanied by nurse, via wheelchair, room 427, with chart, Report cc3 called to CHUCKY Mendoza 04:50 Condition: stable 04:50 Instructed on the need for admit, Demonstrated understanding of instructions. 05:35 Patient left the ED. cc3 Signatures: Dispatcher [employer] EDMS Rayna Jaime Patrick, NP WAXING MACHINE OPERATOR pm1 Adelina Renae RN RN ea Cordel, Charlene cc3
[2019-02-18] MEDS ORDERED: ASPIRIN 325 MG TAB ONE (04:34)
--- NOTE | 2019-02-18 04:39 | P.HP ---
Certification for Inpatient Patient admitted to: Observation With expected LOS: <2 Midnights Practitioner: I am a practitioner with admitting privileges, knowledge of patient current condition, hospital course, and medical plan of care. Services: Services provided to patient in accordance with Admission requirements found in Title 42 Section 412.3 of the Code of Federal Regulations Patient History Date of Service: 02/18/19 Reason for admission: headache, right side blurred vission History of Present Illness: Ms Mohan is a 43 years old woman with history of vertigo, seizure disorder and occipital CVA with residual recurrent episodes of blurred vision on the right side, which typically last for 1 hour and then resolved by itself. The patient came to ED at this time, because her symptoms at this time started more than 24 hr ago and did not resolved yet. She is complaining of severe headache, localized on occipital area. She is also complaining of left temporal pain were she had previous temporal artery biopsy. She denied numbness, tingling or weakness. The patient states that the last time she had similar episode, she was diagnosed with a CVA. CT head shows no acute abnormalities. Allergies No Known Drug Allergies Allergy (Verified 12/21/16 06:21) Unknown No Known Allergies Allergy (Uncoded 11/25/17 14:37) Unknown Home medications list reviewed: Yes Home Medications: Aspirin [Aspirin EC 81 MG] 81 mg PO DAILY #90 tablet. 09/13/18 Atorvastatin Calcium [Lipitor] 40 mg PO BEDTIME #30 tab 09/13/18 Clopidogrel Bisulfate [Plavix*] 75 mg PO DAILY #30 tablet 09/13/18 Folic Acid 1 mg PO DAILY #30 tablet 09/13/18 Pantoprazole [Protonix Tab] 40 mg PO DAILY #30 tab 09/13/18 Topiramate [Topamax*] 25 mg PO BID #60 tab 09/13/18 predniSONE [Prednisone*] 20 mg PO BID #30 tab 09/13/18 - Past Medical/Surgical History Diabetic: No -: epilepsy -: prolapsed bladder -: CVA -: Partial hysterectomy -: Tubal Ligation -: Appendectomy -: Ovarian Cyst -: prolapsed bladder sx - Family History Father -: Hypertension, Diabetes Mother -: Hypertension, Cancer - Social History Smoking Status: Never smoker Alcohol use: No CD- Drugs: No Caffeine use: Yes Place of Residence: Home Review of Systems 10-point ROS is otherwise unremarkable Physical Examination - Physical Exam General: Alert, In no apparent distress HEENT: Atraumatic, PERRLA, Mucous membr. 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) Lymphatics: No axilla or inguinal lymphadenopathy - Studies Laboratory Data (last 24 hrs) 02/17/19 21:40: PT 12.2, INR 1.04 02/17/19 21:40: Sodium 141, Potassium 3.7, BUN 16, Creatinine 0.84, Glucose 101 , Total Bilirubin 0.3, AST 11 L, ALT 22, Alkaline Phosphatase 101 02/17/19 21:40: WBC 7.0, Hgb 11.6 L, Hct 34.1 L, Plt Count 207 Assessment and Plan - Problems (Diagnosis) (1) Hemianopia of right eye Current Visit: Yes Status: Acute (2) History of CVA (cerebrovascular accident) Current Visit: Yes Status: Acute (3) Headache Current Visit: No Status: Acute Qualifiers: Headache type: unspecified Headache chronicity pattern: unspecified pattern Intractability: not intractable Qualified Code(s): R51 - Headache - Plan The case was discussed with Dr Kwok, who has recommended to admit the patient to do a brain MRI to R/O acute CVA. Will resume ASA, Clopidogrel, statins. PT evaluation ordered. - Advance Directives Does patient have a Living Will: No Does patient have a Durable POA for Healthcare: No - Code Status/Comfort Care Code Status Assessed: Yes Code Status: Full Code
[2019-02-18 05:58] VITALS: BMI 29.2
[2019-02-18 06:19] VITALS: O2SAT 98
[2019-02-18] MEDS ORDERED: TOPIRAMATE 25 MG TAB PO SCH (09:00)
[2019-02-18] MEDS: ASPIRIN EC 81 MG TAB PO SCH (09:32)
[2019-02-18] MEDS: PANTOPRAZOLE 40MG TABLET PO SCH (09:32)
[2019-02-18] MEDS: ENOXAPARIN 40 MG/0.4 ML SQ SCH (09:32)
[2019-02-18] MEDS: CLOPIDOGREL 75 MG TABLET PO SCH (09:32)
--- NOTE | 2019-02-18 11:51 | RAD REPORT ---
EXAM DESCRIPTION: CT - Head Brain Wo Cont - 02/18/2019 3:19 am CLINICAL HISTORY: 43 years Female Headache;Visual disturbances TECHNIQUE: Contiguous axial CT images obtained through the brain without IV contrast. This CT exam was performed according to our departmental dose-optimization program, which includes on e or more of the following dose reduction techniques: automated exposure control, adjustment of the m A and/or kV according to patient size, and/or use of iterative reconstruction technique. COMPARISON: Comparison is made to the prior examinations dated 02/17/2019 and 09/06/2018. FINDINGS: Again seen is a now chronic right occipital infarct, stable as compared to the prior day's exam. There is no intracranial hemorrhage, extraaxial collection, or evidence of new transcortical infarcti on. The ventricles are normal in size and contour without mass-effect or midline shift. Osseous structure s are normal. The paranasal sinuses and mastoid air cells are clear. IMPRESSION: No acute intracranial abnormalities. Stable small chronic right occipital infarct. Electronically signed by: Ignacia Gallegos MD 02/18/2019 12:50 AM CDT Due to temporary technical issues with the PACS/Fluency reporting system, reports are being signed by the in house radiologist as a courtesy to ensure prompt reporting. The interpreting radiologist is f ully responsible for the content of the report.
--- NOTE | 2019-02-18 13:48 | RAD REPORT ---
EXAM DESCRIPTION: MRI - Brain W/Wo Cont - 02/18/2019 1:29 pm CLINICAL HISTORY: Right eye blurred vision, left-sided headache and left-sided head pain, patient pr ovided history of CVA COMPARISON: CT head February 17, MRI August 2018 TECHNIQUE: Sagittal and axial T1-weighted images were obtained. Axial PD/heavily T2-weighted and T2- FLAIR images were obtained along with axial DWI/ADC mapping sequences. Coronal heavily T2 weighted s equence obtained. Axial and coronal post-contrast T1-weighted images were also obtained. A 17 ml Mul tihance contrast following utilized. FINDINGS: No intracranial hemorrhage is present. Patient has a punctate focus of hyperintense diffus ion weighted signal in the right parietal lobe near the central sulcus. There is diminished signal on ADC mapping. There is also a 15 millimeter area of abnormal diffusion signal in the posterior inferi or and lateral aspect of the left occipital lobe. This is near the tentorium. There is matching dimin ished signal on ADC mapping and patchy T2/IR signal abnormality. No atrophy or chronic ischemic changes seen. No basal ganglia, thalamus or brainstem signal abnormali ty. There is no edema or shift of midline structures. No extra-axial fluid collections. Ramírez-matter/w rosie matter junction is preserved. Signal voids are seen as a normal finding in the major intracrani al vessels. Ventricles are normal. No globe or orbital content abnormality. No sella or supra sella abnormality. Post-contrast images show normal enhancement. No dural thickening. Mastoid air cells and paranasal sinuses are clear. IMPRESSION: Punctate focus of nonhemorrhagic acute infarction right parietal lobe near the central s ulcus. Acute nonhemorrhagic infarction changes are present in the posterior inferior and lateral aspect of t he left occipital lobe.
--- NOTE | 2019-02-18 19:39 | PN ---
Date of Progress Note: 02/18/2019 Subjective: The patient seen and examined. Chart reviewed and case discussed with RN. The patient is still having some visual deficits. Medications list reviewed. Physical Examination: Vital Signs: Temperature 97.5, heart rate 62, blood pressure 124/67, respirations 20, O2 99% on room air. General: Awake, alert, oriented x3, not in any acute distress. CV: S1, S2. Regular rate and rhythm. Peripheral pulses present. Respiratory: Moving air well bilaterally. No wheezing or stridor. Gastrointestinal: Abdomen is soft, nontender, nondistended. Positive bowel sounds. Extremities: No clubbing, cyanosis, or edema. Neurologic: Nonfocal. The patient has right homonymous hemianopia. Laboratory Data: Labs pending. Assessment And Plan: 1.Hemianopsia of the right eye, may be due to stroke versus immune or multiple sclerosis. Dr. Kwok with Neurology has been consulted. MRI is pending. 2.History of cerebrovascular accident with visual changes that improved previously. 3.Headache. The patient does get migraine-type headache with visual disturbances. We will resume T opamax. Plan: We will continue with stroke guidelines, aspirin, Plavix, Lovenox and statin. Resume home med ications as appropriate. Follow up on MRI of the brain. Head CT scan was negative. The patient is pending neurology evaluation. /PARAMJIT Voice ID: [id number] Report ID: [id number]
--- NOTE | 2019-02-18 20:38 | RAD REPORT ---
EXAM DESCRIPTION: MRI - MRA Head Wo Cont - 02/18/2019 8:13 pm CLINICAL HISTORY: r/o dissection CVA symptomology COMPARISON: Brain W/Wo Cont dated 02/18/2019Brain W/Wo Cont dated 02/18/2019; Head Brain Wo Cont dated FINDINGS: 3D noncontrast [id number] MR angiography of the [place] was performed. No aneurysm, flow-limiting stenosis or vascular malformation is seen. Forward flow seen in codominant vertebral arteries. The visualized dural venous sinuses appear patent. IMPRESSION: No significant flow abnormality of the [place] is identified.
--- NOTE | 2019-02-18 20:39 | RAD REPORT ---
EXAM DESCRIPTION: MRI - MRA Neck W/Wo Cont - 02/18/2019 8:30 pm CLINICAL HISTORY: r/o dissection CVA, neck pain COMPARISON: MRA Neck W/Wo Cont dated 09/07/2018; MRA Neck W/Wo Cont dated 12/21/2016 FINDINGS: Contrast enhance 2D [id number] MR angiography of the neck vessels was performed. A left aortic arch is noted with three-vessel origin of the great vessels. Both subclavian arteries and common carotid arteries appear widely patent. Both internal carotid arteries show no significant stenosis or flow alteration. Codominant vertebral arteries are present. IMPRESSION: No significant flow abnormality of the neck vessels.
--- NOTE | 2019-02-18 21:45 | CON ---
Date of Consultation: 02/18/2019 Time Seen: 1650 hours. Reason: Vision loss. History: A 43-year-old lady with a history of a prior occipital infarct in August of 2018 that was right occipital infarct. She had a left hemianopia at that point, fairly dense but she actually made a reasonably good recovery. She has been having some intermittent headaches and visual disturbance. on Topamax and that has been helping. She states she has been compliant with her medica tion regimen, Lipitor, Plavix, and Protonix as well as the topiramate. She gets occasional vision lo ss and headache that resolves in less than an hour. Hypercoagulable workup was negative on last admi ssi. We even had a temporal artery biopsy that did not demonstrate any evidence of vasculopathy as she has had some persistently elevated sedimentation rate. She has been doing reasonably well until Monday when she noticed that she could not see out of the right side of her vision this time and t hen had a headache. Problem did not resolve so by last night, she came to the emergency department. CT scan of the brain demonstrated chronic right occipital infarct. Given the symptom complex, she w as admitted. Brain MRI today demonstrates acute nonhemorrhagic infarct in the right parietal and als o left occipital corresponding somewhat to her symptom complex. The whole episode very suspicion for vertebrobasilar disease, but as noted before, prior evaluation for dissection was unremarkable. Vis ion is actually and is back at baseline presently. Lipids are pending. Constant headache has resolved. Consultation was requested. Past Medical History: Prior stroke, history of seizures. Allergies: NONE. Social History: She is not working. Never smoked. Independent with activities of daily living. Family History: No family history of hypercoagulable states or premature strokes. Review of Systems: General: Good health. Eyes: Ears, Nose, Throat: Negative. Cardiovascular: Negative. Pulmonary: Negative. GI: Negative. : Negative. Musculoskeletal: Negative. Neurologic: As noted. Psychiatric: Negative. Endocrine: Negative. Hematologic: Negative. Physical Examination: Vital Signs: On exam, afebrile. Vitals are stable. HEENT: Pupils reactive. Ocular motion full. Allen full. Face symmetric. Tongue midline. Soft p alate elevates bilaterally. Extremity: Strength full. Sensation intact. No cortical extinction. Reflexes 2+/4. Toes are down going. Cerebellar exam demonstrates no ataxia. Gait normal. Pertinent Laboratory Data: White count 7, hemoglobin 11.6. Sedimentation rate 39. INR 1.04 and GFR 74. CRP 9.2. Prior RPR negative, anticardiolipin panel negative. Prior negative. Prio r temporal artery biopsy negative. VIANCA, negative. Anticardiolipin negative. ANCA is negative. Impression: Recurrent cerebral infarction. Plan: We will increase the topiramate to 50 twice daily as it seems to decrease the symptoms overall . Continue dual anti-platelet therapy. Check lactate given migraine and recurrent infarct. Conside r MELAS syndrome which is a very rare mitochondrial disorder characterized by recurrent stroke-like e pisodes and elevated lactic acid level. Repeat MRA to rule out dissections, which would be the prima ry consideration in otherwise relatively young patient with recurrent posterior circulation infarct. We would love to have the patient be seen by Vascular Neurology and has been trying to attempt that, but unfortunately she lost her insurance after the last cerebral infarct and so that created additio nal problems getting referral to the medical center expedited. Thank you for the consult. We will continue to follow with you. SAVANNA Voice ID: [id number] Report ID: [id number]
[2019-02-18] MEDS: ATORVASTATIN 40 MG TAB PO SCH (21:57)
[2019-02-18] MEDS: TOPIRAMATE 25 MG TAB PO SCH (22:01)
[2019-02-18] MEDS: TRAMADOL HCL 50 MG TAB PO PRN (22:01)
[2019-02-19 04:16] LABS: RPR Titer ND
[2019-02-19] MEDS: TRAMADOL HCL 50 MG TAB PO PRN ×2 (06:51→15:41)
[2019-02-19] MEDS: FOLIC ACID 1 MG TABLET PO SCH (08:09)
[2019-02-19] MEDS: CLOPIDOGREL 75 MG TABLET PO SCH (08:09)
[2019-02-19] MEDS: ENOXAPARIN 40 MG/0.4 ML SQ SCH (08:09)
[2019-02-19] MEDS: ASPIRIN EC 81 MG TAB PO SCH (08:10)
[2019-02-19] MEDS: TOPIRAMATE 25 MG TAB PO SCH ×2 (08:10→21:03)
[2019-02-19] MEDS: PANTOPRAZOLE 40MG TABLET PO SCH (08:10)
[2019-02-19] MEDS: ONDANSETRON 4 MG/2 ML VIAL IV PRN ×2 (11:00→21:11)
[2019-02-19] MEDS: ATORVASTATIN 40 MG TAB PO SCH (21:04)
[2019-02-19 21:41] LABS: RPR (Rapid Plasma Reagin) NON-REACT (NON-REACT)
--- NOTE | 2019-02-19 23:25 | P.PN ---
Subjective Date of Service: 02/19/19 Chief Complaint: headache, right side blurred vission Subjective: Improving The patient seen and examined. Chart reviewed and case discussed with RN. The patient is still having some visual deficits. Medications list reviewed. Review of Systems 10-point ROS is otherwise unremarkable Physical Examination - Vital Signs Temperature: 97.4 F Blood Pressure: 97/54 Pulse: 63 Respirations: 20 Pulse Ox (%): 97 - Studies Physical Examination: Vital Signs: Temperature 97.5, heart rate 62, blood pressure 124/67, respirations 20, O2 99% on room air. General: Awake, alert, oriented x3, not in any acute distress. CV: S1, S2. Regular rate and rhythm. Peripheral pulses present. Respiratory: Moving air well bilaterally. No wheezing or stridor. Gastrointestinal: Abdomen is soft, nontender, nondistended. Positive bowel sounds. Extremities: No clubbing, cyanosis, or edema. Neurologic: Nonfocal. The patient has right homonymous hemianopia. Assessment And Plan - Plan 1. Acute CVA with Hemianopsia of the right eye, may be due to stroke versus immune or multiple sclerosis. Dr. Kwok with Neurology has been consulted. Recommendations appreciated. Visual changes resolved, patient now back to baseline 2. History of cerebrovascular accident with visual changes that improved previously. 3. Headache. The patient does get migraine-type headache with visual disturbances. We will resume Topamax. Plan: We will continue with stroke guidelines, aspirin, Plavix, Lovenox and statin. Resume home medications as appropriate. Pending further neuro workup
[2019-02-20] MEDS: ENOXAPARIN 40 MG/0.4 ML SQ SCH (09:30)
[2019-02-20] MEDS: FOLIC ACID 1 MG TABLET PO SCH (09:30)
[2019-02-20] MEDS: TOPIRAMATE 25 MG TAB PO SCH (09:31)
[2019-02-20] MEDS: PANTOPRAZOLE 40MG TABLET PO SCH (09:31)
[2019-02-20] MEDS: ASPIRIN EC 81 MG TAB PO SCH (09:31)
[2019-02-20] MEDS: CLOPIDOGREL 75 MG TABLET PO SCH (09:31)
[2019-02-20] MEDS: TRAMADOL HCL 50 MG TAB PO PRN (11:35)
[2019-02-20 16:51] VITALS: BP 114/55; TEMP 97.4
--- NOTE | 2019-02-20 18:26 | PN ---
Date of Progress Note: 02/20/2019 Reason: Stroke. Interval History: The patient is stable. She felt nauseated and dizzy with increase in the Topamax. So, we reverted to the prior dose. MRA, no evidence for dissection. Lactic acid was normal. Lipi ds are at goal, LDL is 61. RPR is negative. Prior echo was normal, transthoracic. Physical Examination: Vital Signs: On exam, she is afebrile. Vitals are stable. General: She is awake, alert, oriented. HEENT: Pupils reactive. Ocular motion full. Allen full. Face symmetric. Tongue midline. Soft p alate elevates bilaterally. Extremity: Strength full. Sensation intact. Reflexes symmetric. Gait normal. Impression: Cerebral infarct, recurrent, stable. Plan: Stable to be discharged to home, current regimen. We will try and arrange for perhaps the out patient transesophageal echocardiogram as the study cannot be done here. Thank you for the consult. SAVANNA Voice ID: [id number] Report ID: [id number]
== END 2019-02-20 17:55 | disposition home or self-care (01) | DRG 66 ==
LOC: ER 20:46 → ERHOLD 02-18 04:21 → 4TH 02-18 05:25 → OBSVTOIN 02-18 15:39
PROVIDERS: ADMIT Internal Medicine; ATTEND Family Medicine
DX: I62.9 Nontraumatic intracranial hemorrhage, unspecified (principal); H53.461 Homonymous bilateral field defects, right side; Z86.73 Personal history of transient ischemic attack (TIA), and cerebral infarction without residual deficits; R51 Headache; G40.909 Epilepsy, unspecified, not intractable, without status epilepticus
CPT/HCPCS: 36415; 70450; 70544; 70549; 70553; 80048; 80061; 80076; 81003; 81025; 82607; 83605; 85025; 85610; 85652; 86140; 86592; 96374; 97162; 99285; A9577; G0378; J1650; J2405; J2765

== ENCOUNTER 2019-08-12 16:54 | Inpatient (IN) | payer SELFPAY ==
[2019-08-12] MEDS ORDERED: METOCLOPRAMIDE 10 MG/2mL INJ ONE (18:03)
[2019-08-12] MEDS ORDERED: NA CHLORIDE 0.9% 500 ML ONE (18:03)
[2019-08-12] MEDS ORDERED: LORazepam 2 MG/ML VIAL ONE (18:03)
[2019-08-12] MEDS ORDERED: KETOROLAC 30 MG/ML INJ ONE (18:03)
[2019-08-12] MEDS ORDERED: NA CHLORIDE 0.9% 1,000 ML ONE ×2 (18:03→19:11)
[2019-08-12 18:34] LABS: Absolute Lymphocytes (CBC) 2.1 K/uL (0.7-4.9); Basophils % 0.6 % (0-1.3); Hematocrit 32.5 % (36.0-45.0); MPV 9.9 fL (7.6-11.3); RBC Red Blood Cell Count 3.69 M/uL (3.86-4.86)
[2019-08-12 18:44] LABS: ALT/SGPT 20 U/L (12-78); AST/SGOT 15 U/L (15-37); Albumin 3.7 g/dL (3.4-5.0); Alkaline Phosphatase 89 U/L (45-117); BUN Blood Urea Nitrogen 17 mg/dL (7-18); Bicarbonate 26 mmol/L (21-32); Bilirubin Direct < 0.1 mg/dL (0-0.2); Bilirubin Total 0.2 mg/dL (0.2-1.0); Glucose Level 95 mg/dL (74-106); Lipase 142 U/L (73-393); Potassium 3.8 mmol/L (3.5-5.1); Protein, Total 7.7 g/dL (6.4-8.2); Sodium Level 138 mmol/L (136-145)
[2019-08-12] MEDS ORDERED: ACETAMINOPHEN 500 MG TAB ONE (19:11)
[2019-08-12 20:12] LABS: Urine Blood TRACE (NEG); Urine Glucose NEGATIVE (NEG); Urine Protein NEGATIVE (NEG); Urine Specific Gravity 1.015 (1.005-1.030); Urine pH 7.5 (5.0-7.0)
--- NOTE | 2019-08-12 20:40 | RAD REPORT ---
EXAM DESCRIPTION: CT - Head Brain Wo Cont - 08/12/2019 8:12 pm CLINICAL HISTORY: Weakness, headache, seizure history COMPARISON: February 2019 TECHNIQUE: Axial 5 mm thick images of the head were obtained without IV contrast. All CT scans are performed using dose optimization technique as appropriate and may include automated exposure control or mA/KV adjustment according to patient size. FINDINGS: No intracranial hemorrhage, mass, edema or shift of mid-line structures. No acute infarcti on changes seen. No abnormal extra-axial fluid collections. Ventricles are normal. Mastoid air cells and visualized portions of the paranasal sinuses are clear. No acute bony findings. No significant change from comparison. IMPRESSION: Negative non-contrast CT head examination.
--- NOTE | 2019-08-12 21:20 | EDPHYS ---
Physician Documentation [facility] Name: Sarai Mohan Age: 44 yrs Sex: Female : 1975 Arrival Date: 08/12/2019 Time: 17:02 Bed 20 Private MD: ED Physician Eric Davis HPI: 08/12 17:44 This 44 yrs old Female presents to ER via EMS with complaints of headache ma2 syncope. 17:44 The patient complains of pain to the forehead. The patient describes the headache as ma2 constant. Onset: The symptoms/episode began/occurred gradually, 1 hour(s) ago. Associated signs and symptoms: Pertinent negatives: there are no associated signs or symptoms. fever, neck stiffness, Photophobia. Severity of symptoms: At its worst the pain was moderate, in the emergency department the pain is unchanged. Headache History: The patient has had previous headaches and this one is similar to previous episodes. The patient has experienced similar episodes in the past. 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 - Social history:: Smoking status: Patient/guardian denies using tobacco, never smoked. - Ebola Screening: : No symptoms or risks identified at this time. - Family history:: not pertinent. ROS: 17:44 Constitutional: Negative for fever, chills, and weight loss. ma2 17:44 All other systems are negative. Exam: 17:44 Constitutional: This is a well developed, well nourished patient who is awake, alert, ma2 and in no acute distress. Head/Face: Normocephalic, atraumatic. Eyes: Pupils equal round and reactive to light, extra-ocular motions intact. Lids and lashes normal. Conjunctiva and sclera are non-icteric and not injected. Cornea within normal limits. Periorbital areas with no swelling, redness, or edema. ENT: Nares patent. No nasal discharge, no septal abnormalities noted. Tympanic membranes are normal and external auditory canals are clear. Oropharynx with no redness, swelling, or masses, exudates, or evidence of obstruction, uvula midline. Mucous membranes moist. Neck: Trachea midline, no thyromegaly or masses palpated, and no cervical lymphadenopathy. Supple, full range of motion without nuchal rigidity, or vertebral point tenderness. No Meningismus. Chest/axilla: Normal chest wall appearance and motion. Nontender with no deformity. No lesions are appreciated. Cardiovascular: Regular rate and rhythm with a normal S1 and S2. No gallops, murmurs, or rubs. Normal PMI, no JVD. No pulse deficits. Respiratory: Lungs have equal breath sounds bilaterally, clear to auscultation and percussion. No rales, rhonchi or wheezes noted. No increased work of breathing, no retractions or nasal flaring. Abdomen/GI: Soft, non-tender, with normal bowel sounds. No distension or tympany. No guarding or rebound. No evidence of tenderness throughout. Skin: Warm, dry with normal turgor. Normal color with no rashes, no lesions, and no evidence of cellulitis. MS/ Extremity: Pulses equal, no cyanosis. Neurovascular intact. Full, normal range of motion. Neuro: Awake and alert, GCS 15, oriented to person, place, time, and situation. Cranial nerves II-XII grossly intact. Motor strength 5/5 in all extremities. Sensory grossly intact. Cerebellar exam normal. Normal gait. Vital Signs: 17:04 BP 158 / 85; Pulse 76; Resp 18; Temp 98.6; Pulse Ox 100% ; Weight 75.75 kg; Height 5 rv ft. 4 in. (162.56 cm); Pain 10/10; 18:00 BP 122 / 70; Pulse 67; Resp 22; Pulse Ox 100% on R/A; rv 19:00 BP 110 / 70; Pulse 77; Resp 19; Pulse Ox 99% on R/A; rv 20:00 BP 112 / 69; Pulse 71; Resp 16; Pulse Ox 100% on R/A; rv 21:00 BP 116 / 71; Pulse 69; Resp 16; Pulse Ox 100% on R/A; rv 22:00 BP 124 / 70; Pulse 73; Resp 15; Pulse Ox 100% on R/A; rv 22:51 BP 110 / 67; Pulse 61; Resp 16; Pulse Ox 100% ; rv 17:04 Body Mass Index 28.67 (75.75 kg, 162.56 cm) rv MDM: 17:24 Patient medically screened. ma2 17:44 Differential diagnosis: migraine, tension headache, uremia. ma2 21:11 Data reviewed: vital signs, EMS record. Counseling: I had a detailed discussion with ma the patient and/or guardian regarding: the historical points, exam findings, and any diagnostic results supporting the discharge/admit diagnosis, the presence of at least one elevated blood pressure reading (>120/80) during this emergency department visit, the need for further work-up and treatment in the hospital. ED course: discussed with dr. dean neurologist who recommends admitting her and do mri brain and he will come and see her in the morning . 08/12 17:38 Order name: Basic Metabolic Panel; Complete Time: 19: [facility] 08/12 17:38 Order name: CBC with Diff; Complete Time: 19: [facility] 08/12 17:38 Order name: Creatinine for Radiology; Complete Time: 19: [facility] 08/12 17:38 Order name: Hepatic Function; Complete Time: 19: [facility] 08/12 17:38 Order name: Lipase; Complete Time: 19: [facility] 08/12 19:32 Order name: Urine Dipstick--Ancillary (enter results); Complete Time: 20:23 [facility] 08/12 19:32 Order name: Urine --Ancillary (enter results); Complete Time: 20:23 [facility] 08/12 19:59 Order name: CT Head Brain wo Cont pr2 08/13 05:23 Order name: CBC with Automated Diff [facility] 08/13 06:20 Order name: Basic Metabolic Panel [facility] 08/13 06:20 Order name: Lipid Profile [facility] 08/13 06:20 Order name: T4 Free [facility] 08/13 06:20 Order name: Magnesium [facility] 08/13 06:20 Order name: Thyroid Stimulating Hormone [facility] 08/12 17:38 Order name: IV Saline Lock; Complete Time: 18:12 [facility] 08/12 17:38 Order name: Labs collected and sent; Complete Time: 18:12 [facility] 08/12 17:38 Order name: Urine Dipstick-Ancillary (obtain specimen); Complete Time: 19:32 [facility] 08/12 18:06 Order name: EKG Electrocardiogram [facility] 08/12 20:43 Order name: CT; Complete Time: 20:53 [facility] 08/12 21:11 Order name: MRI - Brain W/Wo Cont [facility] 08/13 08:35 Order name: MRI [facility] 08/13 08:38 Order name: MRI [facility] 08/13 08:45 Order name: MRI [facility] Administered Medications: 18:08 Drug: Ativan 1 mg Route: IVP; Site: right antecubital; rv 19:02 Follow up: Response: Pain is decreased rv 18:09 Drug: NS 0.9% (20 ml/kg) 20 ml/kg Route: IV; Rate: 1 bolus; Site: right antecubital; rv 19:02 Follow up: IV Status: Completed infusion; IV Intake: 1500ml rv 18:09 Drug: Reglan 20 mg Route: IVP; Site: right antecubital; rv 19:02 Follow up: Response: Pain is decreased rv 18:09 Drug: TORadol 30 mg Route: IVP; Site: right antecubital; rv 19:02 Follow up: Response: Pain is decreased rv 19:14 Drug: Tylenol 1000 mg Route: PO; rv 08/13 01:02 Follow up: Response: Pain is decreased rv 08/12 19:14 Drug: NS 0.9% 1000 ml Route: IV; Rate: 1 bolus; Site: right antecubital; rv 08/13 01:01 Follow up: IV Status: Completed infusion rv Disposition: 08/12/19 21:19 Hospitalization ordered by Hiren Brown for Observation. Preliminary diagnosis are Weakness, Headache. - Bed requested for Telemetry/MedSurg (observation). - Status is Observation. bp - Condition is Stable. - Problem is new. - Symptoms are unchanged. UTI on Admission? No Signatures: Dispatcher [employer] [facility] Rox Sharif RN RN [facility] Trey Francisco RN RN bp Eric Davis MD MD pr2 Jer Romero, RN RN rv Corrections: (The following items were deleted from the chart) 08/12 22:10 21:19 [facility]. Preliminary mt diagnosis is Weakness; Headache. Bed requested for Telemetry/MedSurg (observation). Status is Observation. Condition is Stable. Problem is new. Symptoms are unchanged. UTI on Admission? No. ma2 08/13 05:33 08/12 22:10 08/12/2019 21:19 Hospitalization Ordered by [facility] for Observation. Preliminary diagnosis is Weakness; Headache. Bed requested for [facility] ER HOLD. Status is Observation. Condition is Stable. Problem is new. Symptoms are unchanged. UTI on Admission? No. mt 08/13 08:48 05:33 08/12/2019 21:19 [facility]. bp Preliminary diagnosis is Weakness; Headache. Bed requested for Telemetry/MedSurg (observation). Status is Observation. Condition is Stable. Problem is new. Symptoms are unchanged. UTI on Admission? No. mw
--- NOTE | 2019-08-12 21:20 | ER ---
Nurse's Notes [facility] Name: Sarai Mohan Age: 44 yrs Sex: Female : 1975 Arrival Date: 08/12/2019 Time: 17:02 Bed 20 Private MD: Diagnosis: Weakness;Headache Presentation: 08/12 17:02 Presenting complaint: EMS states: FEELING GOOD TODAY WHILE RUNNING SOME ERRANDS. UNTIL rv AT 1545, FELT VERY WEAK. NO LOC. HAS HISTORY OF STROKE. NO OTHER SIGN AND SYMPTOMS. ALERT AND ORIENTED. BLOOD SUGAR IS 100. EN ROUTE TO ED, PATIENT STARTED HAVING HEADACHE. Transition of care: patient was not received from another setting of care. Onset of symptoms was August 12, 2019 at 15:45. Risk Assessment: Do you want to hurt yourself or someone else? Patient reports no desire to harm self or others. Initial Sepsis Screen: Does the patient meet any 2 criteria? No. Patient's initial sepsis screen is negative. Does the patient have a suspected source of infection? No. Patient's initial sepsis screen is negative. Care prior to arrival: None. 17:02 Method Of Arrival: EMS: [facility] rv 17:02 Acuity: VIC 3 rv Triage Assessment: 17:10 General: Appears in no apparent distress. comfortable, Behavior is calm, cooperative. rv Pain: Complains of pain in HEAD. 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 - Social history:: Smoking status: Patient/guardian denies using tobacco, never smoked. - Ebola Screening: : No symptoms or risks identified at this time. - Family history:: not pertinent. Screenin:10 Abuse screen: Denies threats or abuse. Denies injuries from another. Nutritional rv screening: No deficits noted. Tuberculosis screening: No symptoms or risk factors identified. Fall Risk None identified. Assessment: 19:00 Reassessment: No changes from previously documented assessment. Patient is alert, rv oriented x 3, equal unlabored respirations, skin warm/dry/pink. 21:00 Reassessment: Patient appears in no apparent distress at this time. Patient and/or rv family updated on plan of care and expected duration. Pain level reassessed. Patient is alert, oriented x 3, equal unlabored respirations, skin warm/dry/pink. 22:49 Reassessment: Patient appears in no apparent distress at this time. Patient and/or rv family updated on plan of care and expected duration. Pain level reassessed. Patient is alert, oriented x 3, equal unlabored respirations, skin warm/dry/pink. 08/13 07:00 Reassessment: RECD REPORT FROM [facility]. SEE [facility] FOR FURTHER CHARTING. bp Vital Signs: 08/12 17:04 BP 158 / 85; Pulse 76; Resp 18; Temp 98.6; Pulse Ox 100% ; Weight 75.75 kg; Height 5 rv ft. 4 in. (162.56 cm); Pain 10/10; 18:00 BP 122 / 70; Pulse 67; Resp 22; Pulse Ox 100% on R/A; rv 19:00 BP 110 / 70; Pulse 77; Resp 19; Pulse Ox 99% on R/A; rv 20:00 BP 112 / 69; Pulse 71; Resp 16; Pulse Ox 100% on R/A; rv 21:00 BP 116 / 71; Pulse 69; Resp 16; Pulse Ox 100% on R/A; rv 22:00 BP 124 / 70; Pulse 73; Resp 15; Pulse Ox 100% on R/A; rv 22:51 BP 110 / 67; Pulse 61; Resp 16; Pulse Ox 100% ; rv 17:04 Body Mass Index 28.67 (75.75 kg, 162.56 cm) rv ED Course: 17:02 Patient arrived in ED. rv 17:04 Triage completed. rv 17:10 Patient has correct armband on for positive identification. Placed in gown. Bed in low rv position. Call light in reach. Side rails up X 1. shelter monitor on. Pulse ox on. NIBP on. 17:10 Patient placed in the treatment room, on a stretcher, on desk monitor, on pulse rv oximetry, Patient notified of wait time. Arm band placed on left wrist. EKG completed in triage. Results shown to MD. 17:13 Jer Romero, RN is Primary Nurse. rv 17:13 Maintain EMS IV. Dressing intact. Good blood return noted. Site clean \T\ dry. Gauge \T\ rv site: G20 right AC. 17:23 EKG done, by brewing technician. reviewed by Andres Yang MD. sm3 17:24 Eric Davis MD is Attending Physician. ma2 19:32 Urine collected: clean catch specimen, clear. lt1 21:18 Hiren Brown DO is Hospitalizing Provider. ma2 08/13 01:01 No provider procedures requiring assistance completed. Patient admitted, IV remains in rv place. Administered Medications: 08/12 18:08 Drug: Ativan 1 mg Route: IVP; Site: right antecubital; rv 19:02 Follow up: Response: Pain is decreased rv 18:09 Drug: NS 0.9% (20 ml/kg) 20 ml/kg Route: IV; Rate: 1 bolus; Site: right antecubital; rv 19:02 Follow up: IV Status: Completed infusion; IV Intake: 1500ml rv 18:09 Drug: Reglan 20 mg Route: IVP; Site: right antecubital; rv 19:02 Follow up: Response: Pain is decreased rv 18:09 Drug: TORadol 30 mg Route: IVP; Site: right antecubital; rv 19:02 Follow up: Response: Pain is decreased rv 19:14 Drug: Tylenol 1000 mg Route: PO; rv 08/13 01:02 Follow up: Response: Pain is decreased rv 08/12 19:14 Drug: NS 0.9% 1000 ml Route: IV; Rate: 1 bolus; Site: right antecubital; rv 08/13 01:01 Follow up: IV Status: Completed infusion rv Intake: 08/12 19:02 IV: 1500ml; Total: 1500ml. rv Outcome: 21:19 Decision to Hospitalize by Provider. ma2 08/13 01:01 Admitted to ER Hold. Please see [employer] for further documentation. rv Condition: good Instructed on the need for admit. 08:48 Patient left the ED. bp Signatures: Trey Francisco, RN RN bp Eric Davis MD MD ms2 Gia Fleming 3 Jer Romero, CHUCKY RN rv Dayna Bennett lt1 Corrections: (The following items were deleted from the chart) 08/12 17:05 17:02 Presenting complaint: EMS states: FEELING GOOD TODAY WHILE RUNNING SOME ERRANDS. rv UNTIL AT 1545, FELT VERY WEAK. NO LOC. HAS HISTORY OF STROKE. NO OTHER SIGN AND SYMPTOMS. ALERT AND ORIENTED. BLOOD SUGAR IS 100. rv
--- NOTE | 2019-08-12 22:10 | P.HP ---
Certification for Inpatient Patient admitted to: Observation With expected LOS: <2 Midnights Patient will require the following post-hospital care: Home Health Services Practitioner: I am a practitioner with admitting privileges, knowledge of patient current condition, hospital course, and medical plan of care. Services: Services provided to patient in accordance with Admission requirements found in Title 42 Section 412.3 of the Code of Federal Regulations Patient History Date of Service: 08/12/19 Primary Care Provider: Dr. Colón; Neurology-Dr. Kwok Reason for admission: Confusion History of Present Illness: 44-year-old female presented to the emergency room with confusion. She was brought in by EMS. Patient with history of CVA, hyperlipidemia, and migraines. Most of the information came from the who was present. reported that this 1st started around 4:00 p.m. this afternoon. She went to the kitchen to get something to drink. At that time she became very confused. She was able to walk but had some difficulty in her movement. reported that she appeared lost. She continued to be elevate more confused and had headache. called EMS at that time. In the ER patient evaluated. Vital signs stable. Patient did not have any neurological deficits in the emergency room. Weakness noted to the lower extremities bilateral. Patient reported headache. She denied any photophobia. She denied worsening due to noise. Headache was all over her head. CT scan of the head unremarkable. Urinalysis unremarkable. CBC showed a hemoglobin of 7.1, hemoglobin 11.2. Sodium 138, potassium 3.8. GFR of 87. Patient was admitted for further evaluation and observation. ER discuss case with neurology. When I saw the patient in the ER, she appeared tired. She still reported a headache. Family at bedside. Patient does not appear confused. She is able to answer questions. The patient was seen in February of 2019. At that time she was diagnosed with stroke. MRI showed punctate focus of nonhemorrhagic acute infarct to the right parietal lobe near the central sulcus. Other changes were present in the posterior inferior and lateral aspect of the left occipital lobe. Patient was seen by a neurology at that time. Patient had anti coagulable workup in the past which was unremarkable. She even had a temporal artery biopsy which was negative. Neurology has recommended for the patient to see vascular neurology to evaluate for MELAS but she has not been able to do this due to lack of insurance. On the last admission her Topamax was increased. Allergies No Known Drug Allergies Allergy (Verified 02/18/19 05:56) Unknown No Known Allergies Allergy (Uncoded 02/18/19 05:56) Unknown Home medications list reviewed: Yes Home Medications: Acetaminophen [Tylenol Extra Strength] 500 mg PO Q4HP PRN 02/18/19 Atorvastatin Calcium [Lipitor] 40 mg PO BEDTIME 02/18/19 Clopidogrel Bisulfate [Plavix*] 75 mg PO DAILY 02/18/19 Folic Acid 1 mg PO DAILY 02/18/19 Pantoprazole [Protonix Tab*] 40 mg PO DAILY 02/18/19 Topiramate [Topamax*] 25 mg PO BID 02/18/19 - Past Medical/Surgical History Diabetic: No -: CVA -: Hyperlipidemia -: Migraine headache -: Partial hysterectomy -: Tubal Ligation -: Appendectomy -: Ovarian Cyst -: prolapsed bladder sx Psychosocial/ Personal History: Patient is - Family History Father -: Hypertension, Diabetes Mother -: Hypertension, Cancer - Social History Smoking Status: Never smoker Alcohol use: No CD- Drugs: No Caffeine use: Yes Place of Residence: Home Review of Systems General: Weakness, As per HPI Eyes: Unremarkable ENT: Unremarkable Respiratory: Unremarkable Cardiovascular: Unremarkable Gastrointestinal: Unremarkable Genitourinary: Unremarkable Musculoskeletal: As per HPI Integumentary: Unremarkable Neurological: Weakness, Confusion, As per HPI Lymphatics: Unremarkable Physical Examination - Physical Exam General: Alert, In no apparent distress, Oriented x3, Cooperative HEENT: Atraumatic, Normocephalic, PERRLA, Mucous membr. moist/pink Neck: Supple, No Thyromegaly Respiratory: Clear to auscultation bilaterally, Normal air movement Cardiovascular: Normal pulses, Regular rate/rhythm Gastrointestinal: Normal bowel sounds, Soft and benign, Non-distended, No tenderness, No masses, No rebound, No guarding Musculoskeletal: No erythema, No tenderness, No warmth Integumentary: No tenderness/swelling, No erythema, No warmth, No cyanosis Neurological: Normal speech, Normal tone, Normal affect, Abnormal strength ( Poor strength to the lower extremities with lifting of needs bilateral. 5/5 strength in flexion and extension of the feet.) - Studies Laboratory Data (last 24 hrs) 08/12/19 17:55: Creatinine 0.67 08/12/19 17:55: WBC 7.1, Hgb 11.2 L, Hct 32.5 L, Plt Count 213 08/12/19 17:55: Sodium 138, Potassium 3.8, BUN 17, Creatinine 0.73, Glucose 95, Total Bilirubin 0.2, AST 15, ALT 20, Alkaline Phosphatase 89, Lipase 142 Assessment and Plan - Plan Impression: Confusion with headache with history of CVA Migraine headaches Hyperlipidemia GERD Plan: Confusion with headache with history of CVA: Patient will be admitted for further evaluation and observation. Patient no longer confused. Patient with headaches suspect migraine related. Patient with history of CVA. Will need to rule out CVA. Case discussed with Neurology-Dr. Kwok. Will continue with aspirin and Plavix. Will provide DVT prophylaxis-Lovenox. Will increase Lipitor to 80 mg. Will check fasting lipid panel, tsh, and repeat lab in the morning. Will obtain stroke protocol MRI to further evaluate. Will also obtain echocardiogram and carotid Doppler since that it has not been done over the past 6 months. Will have speech therapy, occupational therapy, and physical therapy assess patient tomorrow. Will continue with her migraine medication. Await further recommendations from neurology. Neurology reported on last admission that she had a hypercoagulable workup which was unremarkable. She also had a temporal artery biopsy in the past which is unremarkable. Neurology mentioned that he had wanted her to see vascular neurology to evaluate for MELAS, but she has not been able to do this due to lack of insurance. Daytime hospitalist will continue her care. Anticipate discharge likely tomorrow if workup unremarkable. Migraine headaches: Restart Topamax 50 mg 1 pill twice daily. Will provide medication for pain. Hyperlipidemia: Will increase Lipitor to 80 mg daily. Will obtain lipid panel. GERD: Will provide medication. Discharge Plan: Home Plan to discharge in: 24 Hours - Advance Directives Does patient have a Living Will: No Does patient have a Durable POA for Healthcare: No - Code Status/Comfort Care Code Status Assessed: Yes (Patient is full code) Time Spent Managing Pts Care (In Minutes): 55
[2019-08-12] MEDS: NA CHLORIDE 0.9% 1,000 ML IV SCH (22:18)
[2019-08-12 22:49] VITALS: BMI 28.6
[2019-08-13] MEDS ORDERED: PANTOPRAZOLE 40MG TABLET PO ONE (05:05)
[2019-08-13] MEDS: PANTOPRAZOLE 40MG TABLET PO SCH (05:20)
[2019-08-13 05:22] LABS: Absolute Lymphocytes (CBC) 2.5 K/uL (0.7-4.9); Basophils % 0.7 % (0-1.3); Hematocrit 30.8 % (36.0-45.0); Lymphocytes % 38.5 % (15.3-44.8); MPV 9.7 fL (7.6-11.3); RBC Red Blood Cell Count 3.44 M/uL (3.86-4.86)
[2019-08-13] MEDS: ACETAMINOPHEN 500 MG TAB PO PRN ×2 (05:36→16:47)
[2019-08-13] MEDS ORDERED: ACETAMINOPHEN 500 MG TAB ONE (05:37)
[2019-08-13 06:05] LABS: BUN Blood Urea Nitrogen 11 mg/dL (7-18); Bicarbonate 22 mmol/L (21-32); Glucose Level 91 mg/dL (74-106); HDL Cholesterol 47 mg/dL (40-60); LDL Cholesterol, Calculated 67 (<130); Magnesium 1.7 mg/dL (1.8-2.4); Potassium 3.5 mmol/L (3.5-5.1); Sodium Level 140 mmol/L (136-145)
--- NOTE | 2019-08-13 07:25 | EKG ---
Test Date: 2019-08-12 Test Time: 17:10:43 Delivery Stock Clerk: JOSE MEASUREMENT RESULTS: Intervals: Rate: 67 SD: 166 QRSD: 90 QT: 436 QTc: 460 Hollister: P: 43 SD: 166 QRS: 47 T: 34 INTERPRETIVE STATEMENTS: Normal sinus rhythm normal ECG Compared to ECG 11/25/2017 12:37:42 no significant change from previous ECG Electronically Signed On 08-13-19 07:24:44 CDT by Calderon Mccullough
--- NOTE | 2019-08-13 08:31 | RAD REPORT ---
EXAM DESCRIPTION: MRI - Brain W/Wo Cont - 08/13/2019 8:19 am CLINICAL HISTORY: Headache, transient alteration of awareness, stroke-like symptoms, CVA history COMPARISON: CT head August 12, MR imaging February 2019 TECHNIQUE: Sagittal and axial T1-weighted images were obtained. Axial PD/heavily T2-weighted and T2- FLAIR images were obtained along with axial DWI/ADC mapping sequences. Coronal heavily T2 weighted s equence obtained. Axial and coronal post-contrast T1-weighted images were also obtained. A 15 ml Mul tihance contrast following utilized. FINDINGS: No intracranial hemorrhage present. No mass effect, edema or shift of midline structures. Diffusion-weighted imaging shows multiple gyri of the right parietal lobe showing increased signal. S ubcortical hyperintensities on diffusion imaging present as well. There is corresponding diminished s ignal on ADC mapping. Small focus of signal abnormality is present in the insular cortex as well. Ear ly cortical edema changes are now evident. Sulci are partially effaced due to the cortical edema. Cor responding areas of T2 hyperintensity noted. Small focus of old infarction noted in the inferior aspe ct of the left occipital lobe near the right-side tentorium. There is no edema or shift of midline structures. No extra-axial fluid collections. Ramírez-matter/whit e matter junction is preserved. Signal voids are seen as a normal finding in the major intracranial vessels. Post-contrast imaging shows enhancement of the involved gyri. No underlying mass lesion. Mastoid air cells and paranasal sinuses are clear. IMPRESSION: Moderate-sized area of acute nonhemorrhagic infarction involving the posterior right par ietal lobe. Mild localized mass effect causing sulcal effacement. No midline shift or mass effect on the lateral ventricle.
--- NOTE | 2019-08-13 08:34 | RAD REPORT ---
EXAM DESCRIPTION: MRI - MRA Neck W/Wo Cont - 08/13/2019 8:20 am CLINICAL HISTORY: CVA, history of CVA COMPARISON: February 2019 TECHNIQUE: MR angiography of the cervical vasculature performed. Coronal imaging plane acquisition u tilized. A 15 MultiHance contrast volume was utilized. Coronal reformatted images were generated and reviewed. Vertical axis 3D rotational projections obtained using maximum intensity projection protoco l. FINDINGS: Aortic arch is 3 vessel configuration with no origins stenoses. Vertebral artery origins a re unremarkable as well. Right vertebral artery is dominant. No common carotid dissection or stenosis identifiable. Right internal carotid artery shows no stenosis, dissection or acute finding. Left com mon carotid artery shows narrowing of the post bulb ICA. This extends over an approximately [address] segment. This would not be acutely significant disease given the right parietal CVA findings . Exam suffers from motion degradation which limits detail. Motion degradation limits assessment of the smaller left vertebral artery. No acute vertebral artery finding is suspected. No basilar stenosis. IMPRESSION: MRA neck examination shows no suspicious finding that would explain the right parietal C VA findings. Approximately 2 centimeter segment of post bulb left ICA showing luminal narrowing when compared to t he right. No dissection suspected. Motion degraded vertebral system appears clear of significant disease.
--- NOTE | 2019-08-13 08:40 | RAD REPORT ---
EXAM DESCRIPTION: MRI - MRA Head Wo Cont - 08/13/2019 8:19 am CLINICAL HISTORY: CVA COMPARISON: MR brain same date, MRA head February 2019 TECHNIQUE: Axial and coronal 3D [id number] image acquisition was performed. 3D rotational images were generated with source and reconstruction images reviewed. Horizontal and vertical axis rotation al views generated using MIP protocol. FINDINGS: No aneurysm or vascular malformation. Basilar artery and distal vertebral artery show no s uspicious findings. The bilateral posterior cerebral arteries without suspicious finding. The MRA head examination protocol extends to include the bilateral internal carotid artery's. This ex amination lacks the motion degradation that was present on the MRA neck study. The proximal left inte rnal carotid artery is better visualized on the current study and does not show the possible luminal narrowing. This study of the left internal carotid artery is more accurate. Distal internal carotid arteries show no dissection or stenosis. No vasculitis findings on this study . The anterior cerebral artery's in the M1 branches of the middle cerebral artery show no significant findings. Distal left M2 branches are within normal limits. There is some diminishment in the vascul arization of the distal right middle cerebral artery distributions which would be consistent with the CVA findings. A focal stenosis or named branch occlusion not confirmed. IMPRESSION: The far peripheral right MCA branches are diminished in visualization compared to the le ft. This would match the history of acute CVA in the right parietal lobe. This is also seen as a huertas ge from February imaging. The proximal right MCA branching without significant disease. Remainder the examination, as detailed above, is without significant or suspicious finding.
--- NOTE | 2019-08-13 08:58 | RAD REPORT ---
EXAM DESCRIPTION: US - CP - 08/13/2019 8:34 am CLINICAL HISTORY: Right parietal CVA COMPARISON: None. TECHNIQUE: Real-time sonographic evaluation of both carotid systems was performed. Ramírez scale and Do ppler interrogation were performed with waveform tracing bilaterally. FINDINGS: Normal high resistance waveforms are noted in both external carotid arteries. The common c arotid arteries and internal carotid arteries show normal low resistance waveforms. No significant plaque formation is seen. Peak systolic and end diastolic velocity values and the ICA/ CCA ratios are in the non-hemodynamically significant range. Antegrade flow seen in both vertebral arteries. Velocity values and ratios were recorded and are retained in the patient's imaging records. IMPRESSION: No significant atherosclerotic changes noted. No evidence of a hemodynamically significant stenosis.
[2019-08-13] MEDS ORDERED: ENOXAPARIN 40 MG/0.4 ML SQ SCH (09:00)
[2019-08-13] MEDS ORDERED: MAGNESIUM SULFATE 1 gm IVPB 1 GM/100 ML BAG IV ONE (09:34)
[2019-08-13] MEDS ORDERED: POTASSIUM CL SA 10 MEQ TAB PO ONE (09:34)
[2019-08-13] MEDS: TOPIRAMATE 25 MG TAB PO SCH ×2 (10:24→20:27)
[2019-08-13] MEDS: NA CHLORIDE 0.9% 1,000 ML IV SCH (10:24)
[2019-08-13] MEDS: CLOPIDOGREL 75 MG TABLET PO SCH (10:25)
[2019-08-13] MEDS: FOLIC ACID 1 MG TABLET PO SCH (10:25)
[2019-08-13] MEDS: ASPIRIN EC 81 MG TAB PO SCH (10:25)
[2019-08-13 12:35] LABS: Urine Appearance CLEAR; Urine Bilirubin NEGATIVE (NEG); Urine Blood NEGATIVE (NEG); Urine Color YELLOW; Urine Glucose NEGATIVE (NEG); Urine Protein NEGATIVE (NEG); Urine Urobilinogen 0.2 mg/dL (0.2-1.0)
[2019-08-13 12:36] LABS: Urine Microscopic Reflex NO UMIC
[2019-08-13 12:44] LABS: Barbiturates NEGATIVE (NEGATIVE); Benzodiazepines NEGATIVE (NEGATIVE); Cocaine NEGATIVE (NEGATIVE); METHAMPHETAM NEGATIVE (NEGATIVE); Methadone NEGATIVE (NEGATIVE); Opiates NEGATIVE (NEGATIVE); Phencyclidine NEGATIVE (NEGATIVE); THC Cannibis NEGATIVE (NEGATIVE)
--- NOTE | 2019-08-13 17:04 | ECHO ---
HEIGHT: 5 ft 4 in WEIGHT: 167 lb 0 oz DATE OF STUDY: 08/13/[address]: Hiren Brown DO 2-DIMENSIONAL: YES M.MODE: YES DOPPLER: YES COLOR FLOW: YES TDS: PORTABLE: DEFINITY: BUBBLE STUDY: DIAGNOSIS: CONFUSION, HX CVA, MIGRAINE CARDIAC HISTORY: CATHERIZATION: NO SURGERY: NO PROSTHETIC VALVE: NO PACEMAKER: NO MEASUREMENTS (cm) DIASTOLIC (NORMALS) SYSTOLIC (NORMALS) IVSd 1.0 (0.6-1.2) LA Diam 2.8 (1.9-4.0) LVEF 72% LVIDd 4.1 (3.5-5.7) LVIDs 2.4 (2.0-3.5) %FS 40% LVPWd 1.1 (0.6-1.2) Ao Diam 2.4 (2.0-3.7) 2 DIMENSIONAL ASSESSMENT: RIGHT ATRIUM: NORMAL LEFT ATRIUM: NORMAL RIGHT VENTRICLE: NORMAL LEFT VENTRICLE: NORMAL TRICUSPID VALVE: NORMAL MITRAL VALVE: NORMAL PULMONIC VALVE: NORMAL AORTIC VALVE: NORMAL PERICARDIAL EFFUSION: NONE AORTIC ROOT: NORMAL LEFT VENTRICULAR WALL MOTION: NORMAL DOPPLER/COLOR FLOW: NORMAL COMMENTS: NORMAL TWO DIMENSIONAL ECHOCARDIOGRAM WITH DOPPLER. TECHNOLOGIST: ASHISH SOTO.
[2019-08-13] MEDS: ATORVASTATIN 80 MG TAB PO SCH (20:27)
--- NOTE | 2019-08-13 21:17 | PN ---
Date of Progress Note: 08/13/2019 Subjective: Patient is seen and examined. Chart reviewed and case discussed with RN and Dr. Kwok. Patient's at the bedside. Treatment and plan explained. All questions answered. Medications: List reviewed. Physical Examination: Vital Signs: Temperature 97.6, heart rate 71, blood pressure 133/73, respirations 18, O2 100% on room air. General: Awake, alert, and oriented x3, in some mild distress. Does not appear ill. CV: S1, S2. Regular rate and rhythm. Peripheral pulses present. Respiratory: Moving air well bilaterally. No wheezing or stridor. Gastrointestinal: Abdomen is soft, nontender, nondistended. Positive bowel sounds. No guarding or rigidity. Extremities: No clubbing, cyanosis, or edema. Neurologic: Cranial nerves 2 through 12 intact grossly. Patient has slight weakness on the right lower extremity 4/5. Otherwise, 5/5 bilateral upper extremities and left lower extremity. Skin: No rashes. Normal skin turgor. Psychiatric: Mood is depressed. Affect is congruent with mood. Insight and judgment are good. Laboratory Data: Sodium 140, potassium 3.5, chloride 112, CO2 22, BUN 11, creatinine 0.63, glucose 91, calcium 7.8, magnesium 1.7. Triglycerides 90, cholesterol 132, LDL 67, HDL 47, TSH 1.24. UA is negative. Urine test is negative. UDS is negative. WBC 6.5, H and H of 10.6 and 30.8, platelets 198, neutrophils 53%. Imaging Studies: Carotid artery ultrasound shows no significant atherosclerotic changes noted, no hemodynamically significant stenosis. MRI of the brain shows moderate-sized area of an acute nonhemorrhagic infarction involving the posterior right parietal lobe, mild localized mass effect causing sulcal effacement. No midline shift or mass effect on the lateral ventricle. Brain MRI and MRA shows the far peripheral right MCA branches are diminished in visualization compared to the left with match, history of acute CVA in the right parietal lobe, also seen as a change from February imaging, proximal right MCA branching without significant disease. MRA of the neck shows no suspicious finding that would explain the right parietal CVA findings, approximately 2 cm segment of the posterior bulb. Left ICA showing luminal narrowing when compared to the right. No dissection suspected. Motion degraded vertebral system appears clear of significant disease. Assessment And Plan: A 44-year-old female with: 1. Acute CVA. The MRI shows diminished present visualization of the right peripheral MCA branches. No significant symptoms other than weakness on the lower extremity. Patient previously had cerebrovascular accident with loss of vision, which has returned. We will continue with stroke guidelines. MRA of the neck and carotid ultrasound reviewed. Patient last echocardiogram was a year ago. We will repeat echo. Patient may benefit from CORNELIO, not able to be done at this facility. Patient underwent extensive workup including hypercoagulable workup and temporal artery biopsy, which were negative, unclear etiology, possible vasculitis. Appreciate Dr. Kwok's input. He recommends LP for further investigation. Also differential diagnosis includes MELAS. Patient has not been able to get this done as an outpatient due to lack of funding. 2. Migraine headaches. We will continue Topamax. 3. Hyperlipidemia. Continue Lipitor. 4. Gastroesophageal reflux disease, stable. No esophagitis. 5. Normocytic normochromic anemia. 6. Hypomagnesemia. We will replace and monitor. Plan: We will consult Radiology for LP in a.mSimon BOLANOS Voice ID: [id number] Report ID: [id number] GRACIE
--- NOTE | 2019-08-14 00:47 | CON ---
Date of Consultation: 08/13/2019 Reason: Stroke. History: This is a 44-year-old lady with a history of a prior right occipital infarct and history of migraines perhaps the etiology of the migraine she made very good recovery fro m the occipital infarct well. She was left with some subjective memory difficulties. She has not been able work. She is applying for disability, but she did not have any further hospitaliz ation. She did have some recurrent headaches and some imaging that demonstrated a questionable new l esion, but yesterday she was out shopping and had abrupt onset of confusion and visual spatial disori entation and she did not know where she was. She felt thirsty. She went to get a bottle of water to drink and was grabbing air instead of the bottle. Left side seemed weak, was brought to the [facility] where she was found to just being generally weak. Imaging was unremarkable given the history of a prior stroke. She was admitted. Since being admitted brain MRI demonstrated new infarct right parie gregory region with diminished vascularization of distal right MCA prior infarct with CAR DRYER infarct. MRA n watson 2 cm left ICA narrowing not suspicious of dissection and on the side as well. [place] l lesion appears acute with obliteration of the sulci and subcortical hyperintensities, localized swe lling. She feels better today. She still has a little bit of drift on the left, but no dramatic maylin rologic deficit despite the moderate size infarct. Consultation was requested. Past Medical History: Prior stroke, history of migraine type headaches. Medications: Protonix, folic acid, Topamax, aspirin, Plavix, Lipitor. Social History: . Memory difficulties, but otherwise independent in basic activities of rosario y living. Family History: There is no family history of premature strokes or stroke in general. Review of Systems: General: Good health. Eyes: Denies. Ears, Nose, Throat: Negative. Cardiovascular: Negative. Pulmonary: Negative. GI: Negative. : Negative. Musculoskeletal: Left-sided weakness, improved. Neurologic: As noted. Psychiatric: Negative. Endocrine: Negative. Hematologic: Negative. Physical Examination: Vital Signs: 97.8, 70, 18, 134/62. General: Pleasant lady, sitting in bed, in no distress. Heart: Sinus rhythm. Lungs: Clear. Abdomen: Soft. Bowel sounds present. No carotid bruit. Neuro: She is awake, alert, oriented. Pupils reactive. Ocular motion full. Allen full. Facial s trength and sensation are normal. Tongue protrudes evenly. Soft palate elevates symmetrically bilat erally. Extremity strength full. There is slight drift left upper extremity, not in the leg. Sensa tion intact. No cortical extinction despite unknown parietal lesion. Reflexes 2/4 right, 2+ left, u pgoing toe on the left. Cerebellar exam demonstrates no ataxia. Gait normal. Pertinent Laboratories: LDL is at goal at 67. CBC; hemoglobin 10.6, otherwise normal. Thyroid norm al. Creatinine normal. Impression: Recurrent cerebral infarction. Plan: Given the recurrence, the patient had prior hypercoagulable workup with negative results, I th ink the most prudent course of action would be to obtain CSF analysis to the evaluate for the possibi lity of some type of vasculitis, potentially causing the recurrent event. She is on appropriate medi jason therapy, but continues to have ischemic events. Thank you for the consult. We will continue to follow with you. SAVANNA Voice ID: [id number] Report ID: [id number]
[2019-08-14 04:15] LABS: Absolute Lymphocytes (CBC) 2.8 K/uL (0.7-4.9); Basophils % 0.4 % (0-1.3); Hematocrit 31.4 % (36.0-45.0); Lymphocytes % 40.5 % (15.3-44.8); MPV 9.6 fL (7.6-11.3); RBC Red Blood Cell Count 3.58 M/uL (3.86-4.86)
[2019-08-14 04:16] LABS: Protime INR 0.99
[2019-08-14 04:34] LABS: Potassium 3.7 mmol/L (3.5-5.1)
[2019-08-14 04:35] LABS: Magnesium 2.1 mg/dL (1.8-2.4)
[2019-08-14] MEDS: PANTOPRAZOLE 40MG TABLET PO SCH (05:48)
[2019-08-14] MEDS ORDERED: POTASSIUM CL SA 10 MEQ TAB PO ONE (06:00)
[2019-08-14] MEDS: TOPIRAMATE 25 MG TAB PO SCH ×2 (09:28→20:30)
[2019-08-14] MEDS: FOLIC ACID 1 MG TABLET PO SCH (09:28)
[2019-08-14] MEDS: NA CHLORIDE 0.9% 1,000 ML IV SCH (13:59)
--- NOTE | 2019-08-14 18:48 | PN ---
Date of Progress Note: 08/14/2019 Subjective: Patient seen and examined. Chart reviewed and case discussed with RN. The patient seem s to be in better spirits today. Spoke with radiologist. Recommends holding antiplatelet therapy fo r 1 more day prior to LP. The patient informed. Medication List: Reviewed. Objective: Vital Signs: Temperature 97.2, heart rate 72, blood pressure 141/77, respirations 16, O2 of 100% on room air. General: Awake, alert, oriented x3, not in any acute distress. CV: S1, S2. No murmurs. Respiratory: Moving air well bilaterally. No wheezing. Gastrointestinal: Abdomen is soft, nontender, nondistended. Positive bowel sounds. Extremities: No clubbing, cyanosis, or edema. Neurologic: Cranial nerves 2 through 12 intact grossly. No focal neurological deficit. Speech is n ormal. Skin: No rashes. Normal skin turgor. Laboratory Data: Sodium 141, potassium 3.7, chloride 112, CO2 of 23, BUN 15, creatinine 0.84, glucos e 107, calcium 8.3. Magnesium 2.1. WBC 6.9, H and H 10.8 and 31.4, platelets 185, neutrophils 51%. Echocardiogram, EF of 72%. Normal echo. Assessment And Plan: A 44-year-old female with: 1.Acute cerebrovascular accident, right peripheral middle cerebral artery branches. We will continu e with stroke guidelines. Plavix and aspirin on hold due to impending LP. Recommended for further i nvestigation to rule out MELAS or other vasculitis type picture. 2.Migraine headaches. Continue Topamax. 3.Mixed hyperlipidemia. Continue Lipitor. 4.Gastroesophageal reflux disease without esophagitis. 5.Normocytic normochromic anemia. Monitor H and H. 6.Hypomagnesemia. Replace and monitor. Plan for LP in a.m. /MODMarisol Voice ID: [id number] Report ID: [id number]
[2019-08-14] MEDS: ATORVASTATIN 80 MG TAB PO SCH (20:30)
--- NOTE | 2019-08-15 00:21 | PN ---
Reason: Stroke. Interval History: Patient is stable, very little deficit. Labs noted. Platelets normal. Sedimentation rate 35. PT, INR, PTT normal. _LP on hold because of recent Lovenox. Study need to be performed despite the risks. If there is inflammation in the CSF I think we can make a good argument to transfer the patient for higher level of care for arteriogram. If the CSF is normal, Patient still might benefit from a transfer, but I suspect that it might be denied since she is stable and aseptic vasculitis that is not particularly common problem. Physical Examination: Vital Signs: She is afebrile. Vitals are stable. General: She is awake, alert, oriented. Neurologic: Cranial nerves are unremarkable. There is slight drift on the left. Sensation is intact. Reflexes are symmetric. Toes are downgoing today. Cerebellar exam demonstrates no ataxia. Laboratory Data: As noted. Impression: Recurrent cerebral infarction. Plan: Anti-platelet agents are on hold. Plan is for CSF analysis tomorrow as noted . We will continue to follow with you. SAVANNA Voice ID: [id number] Report ID: [id number] GRACIE
[2019-08-15 04:35] LABS: Potassium 3.6 mmol/L (3.5-5.1)
[2019-08-15] MEDS: PANTOPRAZOLE 40MG TABLET PO SCH (05:12)
[2019-08-15] MEDS ORDERED: POTASSIUM CL SA 10 MEQ TAB PO ONE (09:00)
[2019-08-15] MEDS: NA CHLORIDE 0.9% 1,000 ML IV SCH (10:18)
[2019-08-15 10:47] LABS: CSF Glucose 70 mg/dL (40-70)
--- NOTE | 2019-08-15 10:51 | RAD REPORT ---
EXAM DESCRIPTION: RAD - Lumbar Puncture For Dx - 08/15/2019 10:37 am CLINICAL HISTORY: CVA Vision loss, CVA history COMPARISON: No comparisons TECHNIQUE: The procedure, risks and alternatives to the procedure were discussed with the patient in detail. Specifically, the patient's elevated risk of bleeding was discussed in detail given the nazario ent's history of taking daily blood thinning medications which is only recently temporarily held for this procedure (approximately 2 days off Plavix and aspirin therapy). After answering all questions, both oral and written consent were obtained. Time-out procedure was performed. The patient was placed in an oblique prone position on the fluoroscopic table. The skin of the lower back was prepped and draped in the usual sterile fashion. After anesthetizing the skin and deeper sof t tissues with 1% lidocaine, a 22 gauge needle was advanced into the thecal sac at the L3 -4 level. 13 cc clear CSF were obtained and sent for requested lab studies. At the conclusion of the procedure the needle was withdrawn and a sterile bandage placed over the pun cture site. The patient tolerated the procedure well without immediate complications. Total fluoro time: 0.5 minutes Images obtained: 4 IMPRESSION: Successful fluoroscopic guided lumbar puncture. All obtained fluid was sent to the lab f or studies requested by the referring physician.
[2019-08-15 11:57] LABS: Fluid Total Volume 13.5 ml
[2019-08-15 11:58] LABS: Appearance CLEAR (CLEAR); Body Fluid Source CSF; Body Fluid WBC 0 /mm^3; Color of fluid Colorless (COLORLESS)
[2019-08-15 11:59] LABS: Appearance CLEAR (CLEAR); Body Fluid Source CSF; Body Fluid WBC 0 /mm^3; Color of fluid Colorless (COLORLESS)
[2019-08-15] MEDS: FOLIC ACID 1 MG TABLET PO SCH (12:30)
[2019-08-15] MEDS: TOPIRAMATE 25 MG TAB PO SCH ×2 (12:30→20:55)
[2019-08-15] MEDS: ACETAMINOPHEN 500 MG TAB PO PRN (14:44)
[2019-08-15] MEDS: ONDANSETRON 4 MG/2 ML VIAL IV PRN ×2 (14:45→19:09)
[2019-08-15] MEDS: ATORVASTATIN 80 MG TAB PO SCH (20:56)
[2019-08-16] MEDS: PANTOPRAZOLE 40MG TABLET PO SCH (06:23)
[2019-08-16 06:30] LABS: Potassium 3.8 mmol/L (3.5-5.1)
[2019-08-16] MEDS ORDERED: POTASSIUM 25 MEQ EFFERV TAB PO ONE (09:00)
[2019-08-16] MEDS: ASPIRIN EC 81 MG TAB PO SCH (09:37)
[2019-08-16] MEDS: TOPIRAMATE 25 MG TAB PO SCH ×2 (09:37→20:22)
[2019-08-16] MEDS: CLOPIDOGREL 75 MG TABLET PO SCH (09:37)
[2019-08-16] MEDS: FOLIC ACID 1 MG TABLET PO SCH (09:37)
[2019-08-16] MEDS: NA CHLORIDE 0.9% 1,000 ML IV SCH (09:41)
[2019-08-16] MEDS: ONDANSETRON 4 MG/2 ML VIAL IV PRN ×2 (14:23→20:22)
[2019-08-16 14:32] LABS: Absolute Lymphocytes (CBC) 2.6 K/uL (0.7-4.9); Basophils % 0.4 % (0-1.3); Hematocrit 34.3 % (36.0-45.0); Lymphocytes % 32.6 % (15.3-44.8); MPV 9.2 fL (7.6-11.3); RBC Red Blood Cell Count 3.92 M/uL (3.86-4.86)
[2019-08-16 14:41] LABS: Protime INR 0.99
[2019-08-16 14:53] LABS: Potassium 3.6 mmol/L (3.5-5.1)
--- NOTE | 2019-08-16 16:11 | P.PN ---
Subjective Date of Service: 08/16/19 Primary Care Provider: Dr. Colón; Neurology-Dr. Kwok Chief Complaint: Confusion Subjective: Worsening Patient seen and examined chart reviewed and case discussed with RN and Dr. Kwok. Patient had episode of bilateral upper extremity weakness and code stroke was called. Head CT scan was negative. Symptoms resolved Review of Systems 10-point ROS is otherwise unremarkable Neurological: As per HPI Physical Examination - Vital Signs Temperature: 97.3 F Blood Pressure: 136/63 Pulse: 72 Respirations: 16 Pulse Ox (%): 100 - Physical Exam General: Alert, In no apparent distress, Oriented x3 HEENT: Atraumatic, PERRLA, EOMI Neck: Supple, JVD not distended Respiratory: Clear to auscultation bilaterally, Normal air movement Cardiovascular: No edema, Normal pulses, Regular rate/rhythm, Normal S1 S2 Gastrointestinal: Normal bowel sounds, Soft and benign, Non-distended, No tenderness Musculoskeletal: No tenderness Integumentary: No rashes Neurological: Normal speech, Normal strength at 5/5 x4 extr, Normal tone, Cranial nerves 3-12 intact, Normal affect Lymphatics: No axilla or inguinal lymphadenopathy Other Physical/Emotional Findings: At the time of My exam in the morning there were no neurological findings. Neurological findings changed during code Stroke in the afternoon - Studies Laboratory Tests 08/12/19 08/12/19 08/12/19 12:03 17:55 17:55 WBC 7.1 RBC 3.69 L Hgb 11.2 L Hct 32.5 L MCV 88.1 MCH 30.3 MCHC 34.4 RDW 12.9 Plt Count 213 MPV 9.9 Neutrophils % 62.5 Lymphocytes % 30.0 Monocytes % 5.3 Eosinophils % 1.6 Basophils % 0.6 Absolute Neutrophils 4.4 Absolute Lymphocytes 2.1 Absolute Monocytes 0.4 Absolute Eosinophils 0.1 Absolute Basophils 0.0 Sodium 138 Potassium 3.8 Chloride 107 Carbon Dioxide 26 BUN 17 Creatinine 0.73 Estimated GFR 87 L Glucose 95 Calcium 8.8 Total Bilirubin 0.2 Direct Bilirubin < 0.1 AST 15 ALT 20 Alkaline Phosphatase 89 Serum Total Protein 7.7 Albumin 3.7 Globulin 4.0 H Albumin/Globulin Ratio 0.9 L Lipase 142 Urine Color Yellow Urine Appearance Clear Urine pH 7.0 Ur Specific [place] 1.010 Urine Ketones Negative Urine Blood Negative Urine Nitrite Negative Urine Bilirubin Negative Urine Urobilinogen 0.2 Ur Leukocyte Esterase Negative Urine Glucose Negative Urine Total Protein Negative Urine Test 08/12/19 08/12/19 17:55 19:32 WBC RBC Hgb Hct MCV MCH MCHC RDW Plt Count MPV Neutrophils % Lymphocytes % Monocytes % Eosinophils % Basophils % Absolute Neutrophils Absolute Lymphocytes Absolute Monocytes Absolute Eosinophils Absolute Basophils Sodium Potassium Chloride Carbon Dioxide BUN Creatinine 0.67 Estimated GFR Glucose Calcium Total Bilirubin Direct Bilirubin AST ALT Alkaline Phosphatase Serum Total Protein Albumin Globulin Albumin/Globulin Ratio Lipase Urine Color Urine Appearance Urine pH 7.5 H Ur Specific [place] 1.015 Urine Ketones Negative Urine Blood Trace H Urine Nitrite Negative Urine Bilirubin Urine Urobilinogen Ur Leukocyte Esterase Negative Urine Glucose Negative Urine Total Protein Negative Urine Test Neg Microbiology Data (last 24 hrs): Cytology study shows no malignant cells Imagings Data: Code Stroke head CT negative per verbal report from radiologist Medications List Reviewed: Yes Assessment And Plan - Plan 44-year-old female with 1. Acute cerebrovascular accident, right peripheral middle cerebral artery branches. We will continue with stroke guidelines. Plavix and aspirin resumed today 24 hr after LP. The LP was negative for vasculitis type of picture. Urology recommends transfer higher level of care to have 4 vessel angiogram and CORNELIO done. Transfer has been initiated to [facility] and [facility]. Awaiting administrative approval from those facilities and bed. As per neurology on-call that those facilities this is not emergent transfer. Patient had another episode of nausea and weakness in her bilateral upper extremities. Repeat head CT scan was negative for acute changes did show previous stroke. CT angio of the head is being done to rule out major vessel thrombosis and need for thrombectomy. If it is positive will need to be emergently transferred for thrombectomy. 2. Migraine headaches. Continue Topamax. 3. Mixed hyperlipidemia. Continue Lipitor. 4. Gastroesophageal reflux disease without esophagitis. 5. Normocytic normochromic anemia. Monitor H and H. 6. Hypomagnesemia. Replace and monitor.
[2019-08-16] MEDS: ACETAMINOPHEN 500 MG TAB PO PRN (17:37)
[2019-08-16] MEDS: ENOXAPARIN 40 MG/0.4 ML SQ SCH (17:37)
--- NOTE | 2019-08-16 19:04 | PN ---
Date of Progress Note: 08/15/2019 Subjective: Patient went for lumbar puncture today, tolerated procedure well, did get somewhat nause ous after anesthesia. Currently nauseated, throwing up. Medications List: Reviewed. Physical Examination: Vital Signs: Temperature 97.6, heart rate 68, blood pressure 118/60, respirations 16, O2 100% on sixto m air. General: Awake, alert, oriented x3. Mild distress. CV: S1 and S2. Regular rate and rhythm. Peripheral pulses present. Respiratory: Moving air well bilaterally. No wheezing or stridor. Gastrointestinal: Abdomen is soft, nontender, nondistended. Positive bowel sounds. No guarding or rigidity. Extremities: No clubbing, cyanosis, or edema. Neurologic: Nonfocal. No speech abnormalities. No facial asymmetry. Laboratory Data: Sodium 140, potassium 3.6, chloride 110, CO2 21, BUN 17, creatinine 0.83, glucose 1 39, calcium 8.6. CSF fluid analysis shows 0 WBCs, 26 RBCs, no neutrophils, lymphocytes or mononuclea r cells. Glucose is 70, total protein 28. Cytology is pending. Assessment And Plan: A 44-year-old female with: 1.Acute CVA, right MCA territory. We will continue with stroke guidelines. We will resume anti-junaid telet therapy in a.m., 24 hours post LP. LP study did not reveal any acute inflammatory markers. No WBCs or polymorphic nuclear cells seen. We will discuss further with Neurology, possible transfer t o higher level of care. 2.Migraine headaches. Continue Topamax. 3.Nausea, vomiting non-intractable. We will continue with Zofran, likely related to anesthesia proc edure and LP. 4.Hyperlipidemia. Continue Lipitor. 5.Gastroesophageal reflux disease without esophagitis, stable. 6.Normocytic normochromic anemia, stable. We will monitor H and H. 7.Hypomagnesemia, being replaced. We will continue to monitor. 8.Deep vein thrombosis prophylaxis. Lovenox on hold due to procedure. Plan: We will discuss further with Neurology, possible transfer for higher level of care for 4-vesse l angiogram. /MODL Voice ID: [id number] Report ID: [id number]
[2019-08-16] MEDS: ATORVASTATIN 80 MG TAB PO SCH (20:22)
--- NOTE | 2019-08-16 20:33 | RAD REPORT ---
EXAM DESCRIPTION: CT HEAD STROKE PROTOCOL STUDY CLINICAL HISTORY: Acute onset neurologic deficit, stroke like symptoms, history of CVA COMPARISON: CT head August 12, 2019, MRI August 13, 2019 TECHNIQUE: Axial 5 mm thick non-contrast images of the head were obtained. Sagittal and coronal reconstruction images were generated and reviewed. This exam was performed according to our departmental dose-optimization program, which includes automated exposure control, adjustment of the mA and/or kV according to patient size and/or use of iterative reconstruction technique. FINDINGS: No intracranial hemorrhage is present. No mass affect, edema or shift of midline structures. Focal encephalomalacia changes are present in the inferior right cerebral hemisphere at the occipital temporal junction. No acute cortical edema or sulcal effacement evident. Recent MRI study showed right parietal CVA changes. No persistent edema in this region and encephalomalacia has not yet developed at the site of the subacute CVA. Ventricles are normal. The patient has no measurable volume loss. Mastoid air cells and paranasal sinuses are clear. IMPRESSION: 1. No intracranial hemorrhage is present. 2. No acute infarction is evident on this study. The right parietal VCA finding noted August 13, 2019 is not clearly evident on this examination. 3. Findings telephoned to the referring clinician 1444 hours.
[2019-08-17] MEDS: NA CHLORIDE 0.9% 1,000 ML IV SCH (04:46)
[2019-08-17] MEDS: ACETAMINOPHEN 500 MG TAB PO PRN (04:46)
[2019-08-17 04:53] LABS: Absolute Lymphocytes (CBC) 2.2 K/uL (0.7-4.9); Basophils % 0.5 % (0-1.3); Hematocrit 34.8 % (36.0-45.0); Lymphocytes % 28.6 % (15.3-44.8); MPV 9.2 fL (7.6-11.3); RBC Red Blood Cell Count 3.92 M/uL (3.86-4.86)
[2019-08-17 05:07] LABS: Potassium 3.6 mmol/L (3.5-5.1)
[2019-08-17] MEDS: PANTOPRAZOLE 40MG TABLET PO SCH (05:16)
[2019-08-17] MEDS: CLOPIDOGREL 75 MG TABLET PO SCH (07:45)
[2019-08-17] MEDS: TOPIRAMATE 25 MG TAB PO SCH (07:45)
[2019-08-17] MEDS: FOLIC ACID 1 MG TABLET PO SCH (07:46)
[2019-08-17] MEDS: ASPIRIN EC 81 MG TAB PO SCH (07:46)
[2019-08-17] MEDS ORDERED: POTASSIUM CL SA 10 MEQ TAB PO ONE (08:00)
[2019-08-17 09:08] VITALS: O2SAT 99
--- NOTE | 2019-08-17 10:47 | EKG ---
Test Date: 2019-08-16 Test Time: 15:11:07 Machine Guide Base Winder: ROD MEASUREMENT RESULTS: Intervals: Rate: 70 AK: 158 QRSD: 94 QT: 428 QTc: 462 [place]: P: 53 AK: 158 QRS: 64 T: 63 INTERPRETIVE STATEMENTS: Normal sinus rhythm normal ECG Compared to ECG 08/12/2019 17:10:43 no significant change from previous ECG Electronically Signed On 08-17-19 10:46:33 CDT by Calderon Mccullough
--- NOTE | 2019-08-17 11:55 | RAD REPORT ---
EXAM DESCRIPTION: CT - Neck Angio - 08/16/2019 7:18 pm CLINICAL HISTORY: rule out lg vessel stroke, acute stroke-like symptoms, history of subacute right p arietal CVA August 13 TECHNIQUE: During dynamic enhancement using nonionic IV contrast, axial 2 mm thick images of the nec k were obtained. Sagittal and axial reconstruction images were generated using MIP technique and revi ewed. All CT scans are performed using dose optimization technique as appropriate and may include automated exposure control or mA/KV adjustment according to patient size. COMPARISON: CT head August 16, MRI/MRA imaging August 13 FINDINGS: No aneurysm or vascular malformation identified. No carotid or vertebral dissection. No aortic arch or great vessel origin abnormality seen. Vertebral artery origins unremarkable as well . No stenosis, vasculitis or other significant carotid artery finding. No focal abnormality of either vertebral artery. Basilar artery is normal. Due to technical difficulties with the [employer] system a final written report was jackie juarez. Verbal report called to the referring clinician at the time of the study. IMPRESSION: Negative CT angio neck examination.
--- NOTE | 2019-08-17 11:58 | RAD REPORT ---
EXAM DESCRIPTION: CT - Head angio - 08/16/2019 7:18 pm CLINICAL HISTORY: rule out lg vessel stroke, stroke-like symptoms, recent right parietal CVA TECHNIQUE: During dynamic enhancement using nonionic IV contrast, axial 1 millimeter thick images of the head were obtained. Sagittal and axial reconstruction images were generated using MIP technique and reviewed. All CT scans are performed using dose optimization technique as appropriate and may include automated exposure control or mA/KV adjustment according to patient size. COMPARISON: CT head August 16, MRI/ MRA imaging August 13 FINDINGS: No aneurysm or vascular malformation identified. Major venous sinuses are patent. No stenosis, named branch occlusion, vasculitis or other significant vascular finding identifiable in the central vasculature. The more peripheral branches of the bilateral anterior cerebral, left middl e cerebral and bilateral posterior cerebral arteries show no significant finding. There is a cortical blush of contrast seen in the gyri of the right parietal lobe matching the area of subacute CVA deta iled on August 13 MRI imaging. The diminished visualization of the far peripheral branches noted on t he MR examination August 13 is less evident on this examination. No right MCA named branch occlusion identified. IMPRESSION: Negative CT angio head examination for acute finding. Normally seen blush of contrast in the gyri of the right parietal lobe affected by the subacute infar ction detailed on August 13 imaging. No named branch occlusion identified. Note: Due to technical difficulties with the [employer] systems final written report was delayed. A verbal report was provided at the time of the study.
[2019-08-17] MEDS: ENOXAPARIN 40 MG/0.4 ML SQ SCH (16:17)
[2019-08-17 16:18] VITALS: BP 116/63; TEMP 97.6
--- NOTE | 2019-08-18 04:50 | DS ---
Date of Discharge: 08/17/2019 Consultants: Dr. Kwok with Neurology. Admitting Diagnoses: 1.Confusion, altered mental status. 2.Headache. 3.History of cerebrovascular accident. 4.Migraine headaches. 5.Hyperlipidemia. 6.Gastroesophageal reflux disease. Discharge Diagnoses: 1.Acute cerebrovascular accident, right peripheral middle cerebral artery branches. 2.Migraine headaches. 3.Confusion, resolved. 4.Mixed hyperlipidemia, on Lipitor. 5.Gastroesophageal reflux disease without esophagitis. 6.Normocytic normochromic anemia. 7.Hypomagnesemia, replaced. Hospital Course: Patient is a 44-year-old female with past medical history of CVA with occipital lob e changes and vision loss, recovered well, hyperlipidemia, migraines, has been seeing by Dr. Kwok wi extensive workup as an outpatient including hypercoagulable workup, temporal artery biopsy which w as negative. Echo and remainder of workup which is remained negative. Patient came in with confusio n, headache, admitted to the hospital. Head CT scan was initially negative. Patient has been unable to have other recommended tests by Neurology as outpatient due to lack of funding including workup t o exclude MELAS acronym; however, at this visit, patient's MRI of the brain was positive for right pa rietal lobe infarct with affecting MCA artery branches. Dr. Kwok with Neurology was consulted. He recommended LP to rule out vasculitis. LP was negative. Echocardiogram was also done, which was nor mal, showed EF of 72%. Patient had improvement in her symptoms. Her confusion resolved. She has sl ight drift of her left upper extremity. Patient was attempted to be transferred to higher level of c are, denied by [facility], pending bed in [facility], however, administratively due to lack of funding, likely not be excepted. Patient did have acute symptoms of bilateral upper extremity weakne ss, some nausea, dizziness and also lower extremity weakness. Therefore, code stroke was called. Em ergent CT of the head was done without contrast did not show any acute changes. Dr. Kwok recommende d head CTA and neck CTA which were negative other than the changes from recent stroke from August 1s t imaging. Patient otherwise did well. Her symptoms improved. Her only complaint is mild numbness of the left hand. Patient is on aspirin and Plavix. No indication for anticoagulation per Dr. Kwok including Xarelto, Coumadin or other similar agents as there is no clear etiology. Patient will nee d a CORNELIO and possibly 4-vessel angiogram as an outpatient. Patient was then cleared for discharge, se nt home, cleared from Neurology standpoint. Followup: Patient to follow up with primary care physician in 2 to 3 days. Follow up with neurologi Dr. Sundar garcia in 2 weeks. Return to ER for worsening condition. Diet: Heart healthy. Activity: As tolerated. Physical Examination: General: Awake, alert, oriented, no acute distress. CV: S1, S2. No murmurs. Respiratory: Moving air well bilaterally. Abdomen: Soft, nontender, nondistended. Positive bowel sounds. Extremities: No clubbing, cyanosis, edema. Neurologic: Nonfocal. Slight numbness, left hand. Time Spent: Total time spent discharging the patient was 43 minutes. LUIS MIGUEL Voice ID: [id number] Report ID: [id number]
--- NOTE | 2019-08-26 12:01 | PN ---
Date of Progress Note: 08/15/2019 Reason: Stroke. Interval History: The patient is stable. Had CSF analysis is all normal, 0 white cells, 22 red cells, glucose is 70, and protein is 28. The patient has not had any recurrent stroke-like episodes today; however, I think the patient would benefit from transfer for higher level of care. She is 44 and had 2 cryptogenic strokes this year, 2 different vascular distributions, the MCA and [employer] distribution. Even though echo is unremarkable, a transesophageal echo may prove to demonstrate an abnormality that might warrant change and intervention. She is on dual antiplatelet therapy, antihypertensives, statins, reviewed that with the patient's attending, Dr. Narvaez, we are going to attempt to transfer the patient to the [facility] for higher level of care. Unfortunately, she does not have any insurance and so I am concerned that that may make the transfer slightly more difficult. Physical Examination: Vital Signs: She is afebrile. Vitals are stable. General: She is awake, alert, oriented. HEENT: Pupils reactive. Ocular motion full. Allen full. Face symmetric. Neurologic: Extremity strength full. Sensation intact. Reflexes 1-2/4. Toes are downgoing. Cerebellar exam demonstrates no ataxia. Gait is normal. Impression: Recurrent cerebral infarction. Plan: Transfer has been initiated. Physician has accepted but awaiting financial screening and approval from the accepting hospital. If the patient remained stable, she can be transferred. If not, she can follow up in the office and we can try and hopefully expedite some type of outpatient neurovascular evaluation. Thank you for the consult. SAVANNA Voice ID: [id number] Report ID: [id number] GRACIE
== END 2019-08-17 19:00 | disposition home or self-care (01) | DRG 66 ==
LOC: ER 16:54 → ERHOLD 22:00 → OBSVTOIN 22:00 → 4TH 08-13 08:20
PROVIDERS: ADMIT Family Medicine; ATTEND Family Medicine
PROC: 009U3ZX Drainage of Spinal Canal, Percutaneous Approach, Diagnostic (ICD-10-PCS; principal; 2019-08-15)
DX: I63.9 Cerebral infarction, unspecified (principal); R53.1 Weakness; R29.708 NIHSS score 8; G43.909 Migraine, unspecified, not intractable, without status migrainosus; K21.9 Gastro-esophageal reflux disease without esophagitis; E83.42 Hypomagnesemia; Z86.73 Personal history of transient ischemic attack (TIA), and cerebral infarction without residual deficits; D64.9 Anemia, unspecified; E78.2 Mixed hyperlipidemia; R11.2 Nausea with vomiting, unspecified
CPT/HCPCS: 36415; 70450; 70496; 70498; 70544; 70549; 70553; 77003; 80048; 80061; 80076; 80307; 81003; 81025; 82945; 82962; 83690; 83735; 84157; 84439; 84443; 85025; 85610; 85652; 85730; 87070; 88108; 88313; 89050; 92610; 93005; 93306; 93880; 96361; 96374; 96375; 97112; 97116; 97161; 99285; A9577; J1650; J2405; J2765; J3475; J7030; Q9967

== ENCOUNTER 2023-08-31 20:29 | Emergency (ER) | payer OTHER ==
--- OUTSIDE RECORDS SUMMARY | 2023-08-31 21:32 | XMS REPORT | Continuity of Care Document ---
:1975 Author Organization [facility] [place] [facility] t Address [address] [facility]. [address] [place] [address] Care Team Providers Name Role Phone JAZMYN PATINO Primary Care Physician Unavailable Linda Oconnor Attending Clinician Unavailable MYRNA FERNÁNDEZ Attending Clinician Unavailable HIREN BROWN Attending Clinician Unavailable HÉCTOR MARIE Attending Clinician Unavailable MD JASON Attending Clinician Unavailable PL, TECH 1 Attending Clinician Unavailable LAB90 Attending Clinician Unavailable TERESA GIBBS Attending Clinician Unavailable SUSANNE DUMONT Attending Clinician Unavailable JULES BRIZUELA Attending Clinician Unavailable LY PATHAK Attending Clinician Unavailable ALYSSA GIBBS Attending Clinician Unavailable KANWAL SCHROEDER Attending Clinician Unavailable JAZMYN PATINO Attending Clinician Unavailable Ariadne Forbes RN Attending Clinician Unavailable JOAO FONG Attending Clinician Unavailable JOAO FONG Attending Clinician Unavailable Pebbles Toth Attending Clinician Kanwal Delcid Attending Clinician Doctor Unassigned, [place] Attending Clinician Unavailable EDNA ROJAS Attending Clinician Unavailable Edna Rojas MD Attending Clinician KENNETH SIMON Attending Clinician Unavailable PEBBLES QUINTERO Attending Clinician Unavailable Ran Simeon MD Attending Clinician [phone], [facility] Attending Clinician Unavailable KELLY WETZEL Attending Clinician Unavailable Linda Oconnor Admitting Clinician Unavailable JOAO FONG Admitting Clinician Unavailable KANWAL SCHROEDER Admitting Clinician Unavailable PEBBLES QUINTERO Admitting Clinician Unavailable KELLY WETZEL Admitting Clinician Unavailable Payers Payer Name Policy Type Policy Number Effective Date Expiration Date Cora perez [employer] GOLD FREEDOM 16 [id number] 2022 HMO-POS 00:00:00 [place] [id number] 2022 CLASSIC NO 00:00:00 PREMIUM HMO WELLCARE [place] [id number] 2022 CLASSIC NO 00:00:00 PREMIUM R2T MEDICARE PART A [id number] 2021 \\T\\ B 00:00:00 MEDICAID SSI PENDING 2019 2019 PENDING 00:00:00 00:00:00 Problems Condition Condition Condition Status Onset Resolution Last Treating Co mments Source Name Details Category Date Date Treatment Clinician Date Chronic Chronic Disease Active [place] bilateral bilateral 8-29 Seyb old low back low back 00:00: - pain pain 00 Externa without without l sciatica sciatica MAUDE on MAUDE on Disease Active [place] CPAP CPAP 829 Seybold 00:00: - 00 Externa l Palpitatio Palpitatio Disease Active Melinda jose ns ns 2-28 Seybold 00:00: - 00 Externa l History of History of Disease Active Overview : [place] heart heart 2-28 Formattin Seybold surgery surgery 00:00: g of this - 00 note Externa might be l different from the original. 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 12-08 ity of 00:00: [place] [facility] Family Family Disease Active Univers history of history of 12-08 it y of malignant malignant 00:[place] neoplasm neoplasm 00 Medica l of breast of breast Bran ch Fibrocysti Fibrocysti Disease Active U nivers c breast c breast 12-08 ity of changes changes 00:00: [place] [facility] Menopause Menopause Disease Active Uni vers present present 12-08 ity of 00:: [place] [facility] Obesity Obesity Disease Active Univers (BMI (BMI 12-08 ity of 30-39.9) 30-39.9) 00:00: Medical Branch Dizziness Dizziness Disease Active Uni vers 12-08 ity of 00:00: [place] [facility] Screening, Screening, Disease Active 2021-11 K elsey lipid lipid 0-24 Seybold 00:00: - 00 Externa l Class 1 Class 1 Disease Active 2021-11 [place] obesity obesity 0-24 Seybold due to due to 00:00: - excess excess 00 Externa calories calories l with with serious serious comorbidit comorbidit y and body y and body mass index mass index (BMI) of (BMI) of 31.0 to 31.0 to 31.9 in 31.9 in adult adult Left lower Left lower Disease Active K elsey quadrant quadrant 08-08 Seybol d abdominal abdominal 00:00: - pain pain 00 Externa l Cyst of Cyst of Disease Active Univers left ovary left ovary 08-08 it y of 00:00: [place] [facility] Gastroesop Gastroesop Disease Active U nivvladimir hageal hageal 08-08 ity of reflux reflux 00:00: [place] disease disease 00 Medical without without Branch esophagiti esophagiti s s Primary Primary Disease Active Univers hypertensi hypertensi 08-08 it y of on on 00:00: [place] [facility] Left-sided Left-sided Disease Active 2018-11 U nivers weakness weakness 1-10 ity of 00:00: [place] 00 Medical Branch Left Left Disease Active 2018-11 Overview: Univer s atrial atrial 1-10 Formattin ity of mass mass 00:00: g of this [place] 00 note Medical might be Branch different from the original. Added automatic ally from request for surgery [id number] History of History of Disease Active Overview : [place] blood blood 11-13 Formattin Seybold clots clots 00:00: g of this - 00 note Externa might be l different from the original. Atrial blood clot, Removed when had heart surgery-[facility] History of History of Disease Active Overview : [place] CVA CVA 11-13 Formattin Seybold (cerebrova (cerebrova 00:00: g of this - scular scular 00 note Externa accident) accident) might be l different from the original. Jul 2018, February 2019, July 2019, August 2019 Personal Personal Disease Active Overview: Un [place] history of history of 11-13 Formattin ity of transient transient 00:00: [place] of this [place] ischemic ischemic 00 note Medica l attack attack might be Branch (TIA), and (TIA), and different cerebral cerebral from the infarction infarction original. without without Formattin residual residual g of this deficits deficits note might be different from the original. Jul 2018, February 2019, July 2019, August 2019 Allergies, Adverse Reactions, Alerts Allergy Allergy Status Severity Reaction(s) Onset Inactive Treating Comm ents Source Name Type Date Date Clinician Metformi Propensi Active Nausea and Ke lsey n ty to Vomiting 8-29 Seybold adverse 00:00: - reaction 00 Externa s to l drug NO KNOWN Drug Active Univers ALLERGIE Class ity of S [place] [facility] Social History Social Habit Start Date Stop Date Quantity Comments Source Gender identity Galina burrell - External Sexual orientation Galina Scales - External History SDOH Social Unive rsity of [facility] Med ical Together Branch History SDOH Social Unive rsity of [facility] Medical Branch History SDOH Social Unive rsity of [facility] Medical Membership Branch History SDOH Social Unive rsity of [facility] Medical Meetings Branch History of Social 2023-08-07 2023-08-07 [place]ina Scales - function 00:00:00 00:00:00 External History SDOH 2022-12-09 2022-12-09 1 University o f Alcohol Frequency 00:00:00 00:00:00 [place] M [facility] History SDOH 2022-12-09 2022-12-09 0 University o f Alcohol Std Drinks 00:00:00 00:00:00 [place] [facility] History SDOH 2022-12-09 2022-12-09 1 University o f Alcohol Binge 00:00:00 00:00:00 [place] Medic al [facility] History SDOH Social 2022-12-09 2022-12-09 5 Unive rsity of Connections Phone 00:00:00 00:00:00 [place] M edical [facility] History SDOH Social 2022-12-09 2022-12-09 3 Unive rsity of Connections Living 00:00:00 00:00:00 [place] [facility] History SDOH 2022-12-09 2022-12-09 1 University o f Physical Activity 00:00:00 00:00:00 [place] [facility] DPW Branch History SDOH 2022-12-09 2022-12-09 3 University o f Physical Activity 00:00:00 00:00:00 [place] [facility] MPS Branch History SDOH 2022-12-09 2022-12-09 5 University o f Financial 00:00:00 00:00:00 [place] [facility] History SDOH Food 2022-12-09 2022-12-09 1 Univers ity of Worry 00:00:00 00:00:00 [place] [facility] History SDOH Food 2022-12-09 2022-12-09 1 Univers ity of Scarcity 00:00:00 00:00:00 [place] [facility] History SDOH 2022-12-09 2022-12-09 2 University o f Transport Med 00:00:00 00:00:00 [place] [facility] History SDOH 2022-12-09 2022-12-09 2 University o f Transport Non-Med 00:00:00 00:00:00 [place] [facility] Exposure to 2022-11-28 2022-12-08 Not sure University SARS-CoV-2 (event) 00:00:00 10:31:00 [place] [facility] Alcohol intake 2022-12-08 2022-12-08 Ex-drinker University 00:00:00 00:00:00 (finding) [facility] Education 2022-08-08 2022-08-08 13 Galina Seybold - 00:00:00 00:00:00 External Tobacco use and 2021-04-29 2021-04-29 Smokeless Universit y of exposure 00:00:00 00:00:00 tobacco non-user [facility] Sex Ass[birth year] TERESO Huber 00:00:00 [facility] Smoking Status Start Date Stop Date Source Never smoked tobacco Galina Seyb old - External Unknown if ever smoked [facility] Medications Ordered Filled Start Stop Current Ordering Indication Dosage Frequency Signature Comments Components Source Medication Medication Date Date Medication? Clinician (SIG) Name Name Aspirin 81 Yes 81mg Take 1 Kelse y MG oral 9-25 tablet (81 Seybol d Chewable 10:47: mg total) - Tablet 32 by mouth Externa daily. l Omeprazole 2022- No 40mg Take 1 Leslie ey 40 MG oral 8-29 08-29 capsule Seybo ld Delayed 14:26: 00:00 (40 mg - Release 14 :00 total) by Externa Capsule mouth l daily Atorvastati Yes [id number] 80mg Take 1 [place] n Calcium 5-31 tablet (80 Seyb old 80 MG oral 00:00: mg total) - Tablet 00 by mouth Externa nightly l Metformin 0 Yes [id number] 500mg Take 1 [place] HCl 500 MG 5-31 tablet Seybold oral Tablet 00:00: (500 mg - 00 total) by Externa mouth l daily (with breakfast) Atorvastati Yes [id number] 80mg Take 1 [place] n Calcium 5-31 tablet (80 Seyb old 80 MG oral 00:00: mg total) - Tablet 00 by mouth Externa nightly l Atorvastati Yes [id number] 80mg Take 1 [place] n Calcium 5-31 tablet (80 Seyb old 80 MG oral 00:00: mg total) - Tablet 00 by mouth Externa nightly l Metformin 2022-0 2022- No [id number] 500mg Take 1 [place] HCl 500 MG 5-31 08-29 tablet Seybol d oral Tablet 00:00: 00:00 (500 mg - 00 :00 total) by Externa mouth l daily (with breakfast) Aspirin 81 3-0 Yes 81mg Take 1 Kelse y MG oral 5-30 tablet (81 Seybol d Chewable 08:10: mg total) - Tablet 52 by mouth Externa daily l Omeprazole 2023-0 Yes 40mg Take 1 Kelse y 40 MG oral 5-30 capsule Seybol d Delayed 08:10: (40 mg - Release 52 total) by Externa Capsule mouth l daily Aspirin 81 2023-0 Yes 81mg Take 1 Kelse y MG oral 5-30 tablet (81 Seybol d Chewable 08:10: mg total) - Tablet 52 by mouth Externa daily l Omeprazole 3-0 Yes 40mg Take 1 Kelse y 40 MG oral 5-30 capsule Seybol d Delayed 08:10: (40 mg - Release 52 total) by Externa Capsule mouth l daily Aspirin 81 3-0 Yes 81mg Take 1 Kelse y MG oral 5-30 tablet (81 Seybol d Chewable 08:10: mg total) - Tablet 52 by mouth Externa daily l Famotidine 3-0 Yes [id number] 20mg Take 1 [place] (PEPCID) 20 5-30 tablet (20 Se ybold MG oral 00:00: mg total) - tablet 00 by mouth Externa daily l Metoprolol 3-0 Yes [id number] 25mg Take 1 K elsey Tartrate 5-30 tablet (25 Seybo ld (LOPRESSOR) 00:00: mg total) - 25 MG oral 00 by mouth 2 Ext jose luis Tablet times l daily Famotidine 3-0 Yes [id number] 20mg Take 1 [place] (PEPCID) 20 5-30 tablet (20 Se ybold MG oral 00:00: mg total) - tablet 00 by mouth Externa daily l Metoprolol 2023-0 Yes [id number] 25mg Take 1 K elsey Tartrate 5-30 tablet (25 Seybo ld (LOPRESSOR) 00:00: mg total) - 25 MG oral 00 by mouth 2 Ext jose luis Tablet times l daily Famotidine 2023-0 Yes [id number] 20mg Take 1 [place] (PEPCID) 20 5-30 tablet (20 Se ybold MG oral 00:00: mg total) - tablet 00 by mouth Externa daily l Metoprolol 0 Yes [id number] 25mg Take 1 K elsey Tartrate 5-30 tablet (25 Seybo ld (LOPRESSOR) 00:00: mg total) - 25 MG oral 00 by mouth 2 Ext jose luis Tablet times l daily Famotidine 0 Yes [id number] 20mg Take 1 [place] (PEPCID) 20 5-30 tablet (20 Se ybold MG oral 00:00: mg total) - tablet 00 by mouth Externa daily l Metoprolol 0 Yes [id number] 25mg Take 1 K elsey Tartrate 5-30 tablet (25 Seybo ld (LOPRESSOR) 00:00: mg total) - 25 MG oral 00 by mouth 2 Ext jose luis Tablet times l daily Atorvastati Yes 40mg Take 1 Leslie ey n Calcium 5-08 tablet (40 Seyb old 40 MG oral 00:00: mg total) - Tablet 00 by mouth Externa at bedtime l Metoprolol 2022- No 25mg Take 1 Leslie ey Tartrate 5-08 05-30 tablet (25 Seyb old (LOPRESSOR) 00:00: 00:00 mg total) - 25 MG oral 00 :00 by mouth 2 Ext jose luis Tablet times l daily Pharmacy: please place this rx on HOLD until pt requests Aspirin 81 2022-0 Yes 81mg Take 81 mg K elsey MG oral -31 by mouth Seybold Chewable 11:22: daily - Tablet 22 Externa l Metoprolol 0 Yes 25mg Take 25 mg K elsey Tartrate 25 -31 by mouth 2 Se ybold MG oral 11:22: times - Tablet 22 daily Externa l Aspirin 81 2022-0 Yes 81mg Take 81 mg K elsey MG oral -31 by mouth Seybold Chewable 11:22: daily - Tablet 22 Externa l Metoprolol 2022-0 Yes 25mg Take 25 mg K elsey Tartrate 25 -31 by mouth 2 Se ybold MG oral 11:22: times - Tablet 22 daily Externa l Ondansetron 2022-0 Yes [id number] 4mg [id number] Take 1 [place] HCl 4 MG -31 [id number] tablet (4 Seybold oral Tablet 00:00: 3D mg total) - 00 by mouth Externa every 8 l hours as needed for nausea Ondansetron 2022-0 Yes [id number] 4mg Q.[id number] Take 1 [place] HCl 4 MG 1-31 [id number] tablet (4 Seybold oral Tablet 00:00: 3D mg total) - 00 by mouth Externa every 8 l hours as needed for nausea Famotidine 2022-0 Yes [id number] 20mg Take 1 [place] (PEPCID) 20 -31 tablet (20 Se ybold MG oral 00:00: mg total) - tablet 00 by mouth 2 Externa times l daily Ondansetron 2022-0 Yes [id number] 4mg Q.[id number] Take 1 [place] HCl 4 MG 1- [id number] tablet (4 Seybold oral Tablet 00:00: 3D mg total) - 00 by mouth Externa every 8 l hours as needed for nausea Famotidine 2022-0 Yes [id number] 20mg Take 1 [place] (PEPCID) 20 - tablet (20 Se ybold MG oral 00:00: mg total) - tablet 00 by mouth 2 Externa times l daily Ondansetron 2022-0 Yes [id number] 4mg Q.[id number] Take 1 [place] HCl 4 MG 1- [id number] tablet (4 Seybold oral Tablet 00:00: 3D mg total) - 00 by mouth Externa every 8 l hours as needed for nausea Ondansetron 2022-0 2022- No [id number] 4mg Q.[id number] Take 1 [place] HCl 4 MG 1- 08-29 [id number] tablet (4 Seybold oral Tablet 00:00: 00:00 3D mg total) - 00 :00 by mouth Externa every 8 l hours as needed for nausea Famotidine 2022-0 202- No [id number] 20mg Take 1 [place] (PEPCID) 20 1- 05-30 tablet (20 S eybold MG oral 00:00: 00:00 mg total) - tablet 00 :00 by mouth 2 Externa times l daily butalbital- 2022-0 Yes 1{tbl} 1 tablet, Univers acetaminoph 1- Oral, ity of en-caff 20:15: Q4HPRN, [place] (ESGIC) 02 Starting Medical 50-325-40 on Fri Branch mg tablet 1 12/09/22 at tablet 1415, Until Discontinu ed, Routine, headache aspirin 81 2022-0 Yes 81mg Take 81 mg U nivers mg chewable 12-09 by mouth ity of tablet 16:56: daily. [address] aspirin 81 0 Yes 81mg Take 81 mg U nivers mg chewable 12-09 by mouth ity of tablet 16:56: daily. [address] perflutren 0 202- No [id number] 3mL 3 mL, IV Univers protein-A 12-09 Push, ity of microsphr 16:45: 16:25 ONCE, 1 [place] (OPTISON) 00 :00 dose, On Medica l injection 3 Mon Branch mL 12/09/22 at 1045, Routine enoxaparin Yes 40mg 40 mg, Unive rs (LOVENOX) 12-09 Subcutaneo ity of injection 15:00: [place], DAILY, [place] 40 mg 00 First dose Medical on Mon Branch 12/09/22 at 0900, Until Discontinu ed, Routine aspirin Yes 81mg 81 mg, Univers chewable 12-09 Oral, ity of tablet 81 15:00: DAILY, [place] mg 00 First dose Medical on Mon Branch 12/09/22 at 0900, Until Discontinu ed, Routine aspirin 2022- No 243mg 243 mg, Unive rs chewable 12-09 Oral, ity of tablet 243 15:00: 23:33 DAILY, [place] mg 00 :46 First dose Medical on Mon Branch 12/09/22 at 0900, Until Discontinu ed, Routine ondansetron Yes 4mg 4 mg, Slow Univers (ZOFRAN 12-09 IV Push, ity of (PF)) 14:21: Q6HPRN, [place] injection 4 28 Nausea and Me dical mg Vomiting Branch (N/V), Starting on Mon12/09/22 at 0821
Do ses of ondansetro n 16 mg and above need to be administer ed via IV piggyback. For Dose >=24mg ECG monitoring is advisable.
atorvastati Yes 40mg 40 mg, Univ ers n (LIPITOR) 12-09 Oral, QHS, it y of tablet 40 03:00: First dose [place] mg 00 on [facility] 12/08/22 at Branch 2100, Until Discontinu ed, Routine famotidine Yes 20mg 20 mg, Unive rs (PEPCID AC) 12-09 Oral, BID, it y of tablet 20 02:00: First dose [place] mg 00 on [facility] 12/08/22 at Branch 2000, Until Discontinu ed, Routine ondansetron 2022- No 4mg 4 mg, Slow Univers (ZOFRAN 12-09 IV Push, ity of (PF)) 00:30: 01:09 ONCE, 1 [place] injection 4 00 :00 dose, On Medi jason mg [facility] 12/08/22 at 1830, Routine ketorolac 2022- No 15mg 15 mg, Unive rs (TORADOL) 12-09 Slow IV ity of injection 00:30: 01:09 Push, [place] 15 mg 00 :00 ONCE, 1 Medical dose, On Branch [facility] 12/08/22 at 1830, Routine Atorvastati Yes 40mg Take 40 mg [place] n Calcium 12-09 by mouth Seybol d 40 MG oral 00:00: at bedtime - Tablet 00 Externa l Atorvastati Yes 40mg Take 40 mg [place] n Calcium 27 by mouth Seybol d 40 MG oral 00:00: at bedtime - Tablet 00 Externa l atorvastati Yes [id number] 40mg Take 1 Univers n 40 mg 27 tablet by ity of tablet 00:00: mouth at [place] 00 bedtime. Medical Branch atorvastati Yes [id number] 40mg Take 1 Univers n 40 mg 27 tablet by ity of tablet 00:00: mouth at [place] 00 bedtime. Medical Branch acetaminoph Yes 325mg 325 mg, Un davida en 12-08 Oral, ity of (TYLENOL) 23:32: Q6HPRN, [place] tablet 325 14 Starting Medic al mg on Briana Branch 12/08/22 at 1732, Until Discontinu ed, Routine, Pain (scale 1-3), Temp > 37.5 C labetaloL Yes 10mg 10 mg, Univer s (NORMODYNE) 12-08 Slow IV ity o f injection 23:30: Push, [place] 10 mg 31 [id number], 5 Medical doses, Branch Starting on Briana 12/08/22 at 1730, Until Discontinu ed, Routine, Hypertensi on SBP> 220 iopamidol 2022- No [id number] 80mL 80 mL, Univers (ISOVUE 12-08 Intravenou ity o f 370-500 mL) 20:00: 20:00 s, ONCE, 1 [place] injection 00 :00 dose, On Medica l 80 mL [place] Branch 12/08/22 at 1400, Routine ondansetron 2022- No 4mg 4 mg, Slow Univers (ZOFRAN 12-08 IV Push, ity of (PF)) 19:30: 19:37 ONCE, 1 [place] injection 4 00 :00 dose, On Medi jason mg [place] Branch 12/08/22 at 1330, SOUTH proMETHazin 2022- No 25mg 25 mg, IV Univers e 12-08 Piggyback, ity of (PHENERGAN) 19:30: 19:37 ONCE, 1 [place] 25 mg in 00 :00 dose, On Medical NaCl 0.9% [place] Branch (NS) 50 mL 12/08/22 at IV 1330, SOUTH piggyback meclizine 2022- No 25mg 25 mg, Unive rs (TRAVEL-EAS 12-08 Oral, ity of E 18:30: 19:36 ONCE, 1 [place] (MECLIZINE) 00 :00 dose, On Medi jason ) tablet 25 [place] Branch mg 12/08/22 at 1230, SOUTH diazePAM 2022- No 5mg 5 mg, Slow Un davida (VALIUM) 12-08 IV Push, ity of injection 5 17:00: 16:47 ONCE, 1 [place] mg 00 :00 dose, On Medical [place] Branch 12/08/22 at 1100, STAT ondansetron No 4mg 4 mg, Slow Univers (ZOFRAN 12-08 IV Push, ity of (PF)) 16:45: 16:41 ONCE, 1 [place] injection 4 00 :00 dose, On Medi jason mg [place] Branch 12/08/22 at 1045, SOUTH Pantoprazol 2022- No 40mg Take 40 mg [place] e Sodium 40 11-28 by mouth Sey bold MG oral 00:00: 00:00 daily - Tablet 00 :00 Externa Delayed l Response Famotidine 2021-11- No [id number] 20mg Take 1 [place] (PEPCID) 20 01-10 tablet (20 S eybold MG oral 00:00: 00:00 mg total) - tablet 00 :00 by mouth 2 Externa times l daily metoprolol 2021-11 No 25mg Take 25 mg Univers tartrate 25 11-13 by mouth 2 i ty of mg tablet 09:35: 00:00 (two) [place] 44 :00 times Medical daily. Branch metoprolol 2021-11 No 25mg Take 25 mg Univers tartrate 25 11-13 by mouth 2 i ty of mg tablet 09:35: 00:00 (two) [place] 44 :00 times Medical daily. Branch famotidine 2021-11 Yes 20mg Take 1 Unive rs 20 mg -01 tablet by ity of tablet 00:00: mouth in [place] the Medical morning Branch and 1 tablet in the evening. metoprolol 2021-11 Yes [id number] 25mg Take 1 U nivers succinate 1-01 tablet by ity o f XL 25 mg 24 00:00: mouth in [place] hr tablet 00 the Medical morning. Branch famotidine 2021-11 Yes 20mg Take 1 Unive rs 20 mg 1-01 tablet by ity of tablet 00:00: mouth in [place] the Medical morning Branch and 1 tablet in the evening. metoprolol 2021-11 Yes [id number] 25mg Take 1 U nivers succinate 1-01 tablet by ity o f XL 25 mg 24 00:00: mouth in [place] hr tablet 00 the Medical morning. Branch famotidine 2021-11 Yes 20mg Take 1 Unive rs 20 mg 1-01 tablet by ity of tablet 00:00: mouth in [place] 00 the Medical morning Branch and 1 tablet in the evening. metoprolol 2021-11 Yes [id number] 25mg Take 1 U nivers succinate 1-01 tablet by ity o f XL 25 mg 24 00:00: mouth in [place] hr tablet 00 the morning. Branch famotidine 2021-11 Yes 20mg Take 1 Unive rs 20 mg 1-01 tablet by ity of tablet 00:00: mouth in [place] 00 the Medical morning Branch and 1 tablet in the evening. metoprolol 2021-11 Yes [id number] 25mg Take 1 U nivers succinate 1-01 tablet by ity o f XL 25 mg 24 00:00: mouth in [place] hr tablet 00 the morning. Branch famotidine 2021-11 Yes 20mg Take 1 Unive rs 20 mg 1-01 tablet by ity of tablet 00:00: mouth in [place] the morning Branch and 1 tablet in the evening. metoprolol 2021-11 Yes [id number] 25mg Take 1 U nivers succinate 1-01 tablet by ity o f XL 25 mg 24 00:00: mouth in [place] hr tablet the morning. Branch famotidine 2021-11 Yes 20mg Take 1 Unive rs 20 mg 1-01 tablet by ity of tablet 00:00: mouth in [place] the morning Branch and 1 tablet in the evening. metoprolol 2021-11 Yes [id number] 25mg Take 1 U nivers succinate 1-01 tablet by ity o f XL 25 mg 24 00:00: mouth in [place] hr tablet 00 the morning. Branch famotidine 2021-11 Yes 20mg Take 1 Unive rs 20 mg 1-01 tablet by ity of tablet 00:00: mouth in [place] 00 the Medical morning Branch and 1 tablet in the evening. metoprolol 2021-11 Yes [id number] 25mg Take 1 U nivers succinate 1-01 tablet by ity o f XL 25 mg 24 00:00: mouth in [place] hr tablet 00 the morning. Branch famotidine 2021-11 Yes 20mg Take 1 Unive rs 20 mg 1-01 tablet by ity of tablet 00:00: mouth in [place] 00 the Medical morning Branch and 1 tablet in the evening. metoprolol 2021-11 Yes [id number] 25mg Take 1 U nivers succinate 1-01 tablet by ity o f XL 25 mg 24 00:00: mouth in [place] hr tablet 00 the morning. Branch famotidine 2021-11 Yes 20mg Take 1 Unive rs 20 mg 1-01 tablet by ity of tablet 00:00: mouth in [place] 00 the Medical morning Branch and 1 tablet in the evening. metoprolol 2021-11 Yes [id number] 25mg Take 1 U nivers succinate 1-01 tablet by ity o f XL 25 mg 24 00:00: mouth in [place] hr tablet 00 the morning. Branch famotidine 2021-11 Yes 20mg Take 1 Unive rs 20 mg 1-01 tablet by ity of tablet 00:00: mouth in [place] 00 the Medical morning Branch and 1 tablet in the evening. metoprolol 2021-11 Yes [id number] 25mg Take 1 U nivers succinate 1-01 tablet by ity o f XL 25 mg 24 00:00: mouth in [place] hr tablet 00 the morning. Branch famotidine 2021-11 Yes 20mg Take 1 Unive rs 20 mg 1-01 tablet by ity of tablet 00:00: mouth in [place] the Medical morning Branch and 1 tablet in the evening. metoprolol 2021-11 Yes [id number] 25mg Take 1 U nivers succinate 1-01 tablet by ity o f XL 25 mg 24 00:00: mouth in [place] hr tablet the morning. Branch famotidine 2021-11 Yes 20mg Take 1 Unive rs 20 mg 1-01 tablet by ity of tablet 00:00: mouth in [place] 00 the Medical morning Branch and 1 tablet in the evening. metoprolol 2021-11 Yes [id number] 25mg Take 1 U nivers succinate 1-01 tablet by ity o f XL 25 mg 24 00:00: mouth in [place] hr tablet 00 the Medical morning. Branch famotidine 2021-11 Yes 20mg Take 1 Unive rs 20 mg 1-01 tablet by ity of tablet 00:00: mouth in [place] 00 the Medical morning Branch and 1 tablet in the evening. metoprolol 2021-11 Yes [id number] 25mg Take 1 U nivers succinate 1-01 tablet by ity o f XL 25 mg 24 00:00: mouth in [place] hr tablet 00 the Medical morning. Branch famotidine 2021-11 Yes 20mg Take 1 Unive rs 20 mg 1-01 tablet by ity of tablet 00:00: mouth in [place] 00 the Medical morning Branch and 1 tablet in the evening. metoprolol 2021-11 Yes [id number] 25mg Take 1 U nivers succinate 1-01 tablet by ity o f XL 25 mg 24 00:00: mouth [place] hr tablet 00 the Medical morning. Branch Aspirin 81 Yes 81mg Take 81 mg K elsey MG oral 9-26 by mouth Seybold Chewable 10:59: daily - Tablet 57 Externa l Metoprolol Yes 25mg Take 25 mg K elsey Tartrate 25 9-26 by mouth 2 Se ybold MG oral 10:59: times - Tablet 57 daily Externa l Famotidine Yes [id number] 20mg Take 1 [place] (Pepcid) 20 9-26 tablet (20 Se ybold MG oral 00:00: mg total) - tablet 00 by mouth 2 Externa times l daily metoprolol Yes 25mg Take 25 mg U nivers tartrate 25 5-11 by mouth 2 it y of mg tablet 11:49: (two) [place] 03 times Medical daily. Branch metoprolol Yes 25mg Take 25 mg U nivers tartrate 25 5-11 by mouth 2 it y of mg tablet 11:49: (two) [place] 03 times Medical daily. Branch metoprolol Yes 25mg Take 25 mg U nivers tartrate 25 5-11 by mouth 2 it y of mg tablet 11:49: (two) [place] 03 times Medical daily. Branch iopamidol 2021- No [id number] 100mL 100 mL, Univers (ISOVUE 5-10 05-10 Intravenou ity o f 370-500 mL) 03:15: 02:03 s, ONCE, 1 [place] injection 00 :00 dose, On Medica l 100 mL 03/21/22 Branch at 2215, Routine NaCl 0.9% 2021- No 1000mL at 999 Uni vers (NS) bolus 5-10 05-10 mL/hr, ity of infusion 02:45: 04:27 1,000 mL, Donnie as 1,000 mL 00 :00 IV Medical Infusion, Branch ONCE, 1 dose, On Mon03/21/22 at 2145, STAT ondansetron 2021- No 4mg 4 mg, Slow Univers (ZOFRAN 5-10 05-10 IV Push, ity of (PF)) 02:45: 01:49 ONCE, 1 [place] injection 4 00 :00 dose, On Medi jason mg Mon03/21/22 Branch at 2145, SOUTH metoprolol 0 Yes 25mg Take 25 mg U nivers tartrate 25 -09 by mouth 2 it y of mg tablet 23:44: (two) [place] 57 times Medical daily. Branch Lidocaine-H Yes [id number] 1{appli Insert 1 Univers ydrocortiso 5-09 catorfu Applicator ity of [place] 00:00: l} ful into [place] 3-2.5 % (7 00 rectum 2 Medic al gram) Kit (two) Branch times daily. Lidocaine-H Yes [id number] 1{appli Insert 1 Univers ydrocortiso 5-09 catorfu Applicator ity of [place] 00:00: l} ful into [place] 3-2.5 % (7 00 rectum 2 Medic al gram) Kit (two) Branch times daily. Lidocaine-H Yes [id number] 1{appli Insert 1 Univers ydrocortiso 5-09 catorfu Applicator ity of [place] 00:00: l} ful into [place] 3-2.5 % (7 00 rectum 2 Medic al gram) Kit (two) Branch times daily. Lidocaine-H Yes [id number] 1{appli Insert 1 Univers ydrocortiso 5-09 catorfu Applicator ity of [place] 00:00: l} ful into [place] 3-2.5 % (7 00 rectum 2 Medic al gram) Kit (two) Branch times daily. Lidocaine-H Yes [id number] 1{appli Insert 1 Univers ydrocortiso 5-09 catorfu Applicator ity of [place] 00:00: l} ful into [place] 3-2.5 % (7 00 rectum 2 Medic al gram) Kit (two) Branch times daily. Lidocaine-H 2021-0 Yes [id number] 1{appli Insert 1 Univers ydrocortiso 5-09 catorfu Applicator ity of [place] 00:00: l} ful into [place] 3-2.5 % (7 00 rectum 2 Medic al gram) Kit (two) Branch times daily. Lidocaine-H Yes [id number] 1{appli Insert 1 Univers ydrocortiso 5-09 catorfu Applicator ity of [place] 00:00: l} ful into [place] 3-2.5 % (7 00 rectum 2 Medic al gram) Kit (two) Branch times daily. Lidocaine-H Yes [id number] 1{appli Insert 1 Univers ydrocortiso 5-09 catorfu Applicator ity of [place] 00:00: l} ful into [place] 3-2.5 % (7 00 rectum 2 Medic al gram) Kit (two) Branch times daily. Lidocaine-H Yes [id number] 1{appli Insert 1 Univers ydrocortiso 5-09 catorfu Applicator ity of [place] 00:00: l} ful into [place] 3-2.5 % (7 00 rectum 2 Medic al gram) Kit (two) Branch times daily. Lidocaine-H Yes [id number] 1{appli Insert 1 Univers ydrocortiso 5-09 catorfu Applicator ity of [place] 00:00: l} ful into [place] 3-2.5 % (7 00 rectum 2 Medic al gram) Kit (two) Branch times daily. Lidocaine-H 0 Yes [id number] 1{appli Insert 1 Univers ydrocortiso 5-09 catorfu Applicator ity of [place] 00:00: l} ful into [place] 3-2.5 % (7 00 rectum 2 Medic al gram) Kit (two) Branch times daily. Lidocaine-H 2021- Yes [id number] 1{appli Insert 1 Univers ydrocortiso 5-09 catorfu Applicator ity of [place] 00:00: l} ful into [place] 3-2.5 % (7 00 rectum 2 Medic al gram) Kit (two) Branch times daily. Lidocaine-H Yes [id number] 1{appli Insert 1 Univers ydrocortiso 5-09 catorfu Applicator ity of [place] 00:00: l} ful into [place] 3-2.5 % (7 00 rectum 2 Medic al gram) Kit (two) Branch times daily. Lidocaine-H Yes [id number] 1{appli Insert 1 Univers ydrocortiso 5-09 catorfu Applicator ity of [place] 00:00: l} ful into [place] 3-2.5 % (7 00 rectum 2 Medic al gram) Kit (two) Branch times daily. Lidocaine-H Yes [id number] 1{appli Insert 1 Univers ydrocortiso 5-09 catorfu Applicator ity of [place] 00:00: l} ful into [place] 3-2.5 % (7 00 rectum 2 Medic al gram) Kit (two) Branch times daily. Lidocaine-H Yes [id number] 1{appli Insert 1 Univers ydrocortiso 5-09 catorfu Applicator ity of [place] 00:00: l} ful into [place] 3-2.5 % (7 00 rectum 2 Medic al gram) Kit (two) Branch times daily. Lidocaine-H Yes [id number] 1{appli Insert 1 Univers ydrocortiso 5-09 catorfu Applicator ity of [place] 00:00: l} ful into [place] 3-2.5 % (7 00 rectum 2 Medic al gram) Kit (two) Branch times daily. Lidocaine-H Yes [id number] 1{appli Insert 1 Univers ydrocortiso 5-09 catorfu Applicator ity of [place] 00:00: l} ful into [place] 3-2.5 % (7 00 rectum 2 Medic al gram) Kit (two) Branch times daily. gadobenate 202- No [id number] .2mL/kg 0.2 mL/kg, Univers dimeglumine 07-01 Intravenou i ty of (MULTIHANCE 19:45: 19:36 s, ONCE, 1 [place] -20 mL) 00 :00 dose, [facility] Medical injection 07/01/21 at Bran ch 0.2 mL/kg 1445, Routine atorvastati Yes [id number] 20mg Take 1 Univers n 20 mg 7-14 tablet by ity of tablet 00:00: mouth at [place] [address] bedtime. Medical Branch atorvastati Yes [id number] 20mg Take 1 Univers n 20 mg 7-14 tablet by ity of tablet 00:00: mouth at [place] [address] bedtime. Medical Branch atorvastati Yes [id number] 20mg Take 1 Univers n 20 mg 7-14 tablet by ity of tablet 00:00: mouth at [place] [address] bedtime. Medical Branch atorvastati Yes [id number] 20mg Take 1 Univers n 20 mg 7-14 tablet by ity of tablet 00:00: mouth at [place] [address] bedtime. Medical Branch atorvastati Yes [id number] 20mg Take 1 Univers n 20 mg 7-14 tablet by ity of tablet 00:00: mouth at [place] [address] bedtime. Medical Branch atorvastati Yes [id number] 20mg Take 1 Univers n 20 mg 7-14 tablet by ity of tablet 00:00: mouth at [place] [address] bedtime. Medical Branch atorvastati Yes [id number] 20mg Take 1 Univers n 20 mg 7-14 tablet by ity of tablet 00:00: mouth at [place] [address] bedtime. Medical Branch atorvastati Yes [id number] 20mg Take 1 Univers n 20 mg 7-14 tablet by ity of tablet 00:00: mouth at [place] [address] bedtime. Medical Branch atorvastati Yes [id number] 20mg Take 1 Univers n 20 mg 7-14 tablet by ity of tablet 00:00: mouth at [place] [address] bedtime. Medical Branch atorvastati Yes [id number] 20mg Take 1 Univers n 20 mg 7-14 tablet by ity of tablet 00:00: mouth at [place] [address] bedtime. Medical Branch atorvastati Yes [id number] 20mg Take 1 Univers n 20 mg 7-14 tablet by ity of tablet 00:00: mouth at [place] [address] bedtime. Medical Branch atorvastati 0 Yes [id number] 20mg Take 1 Univers n 20 mg 7-14 tablet by ity of tablet 00:00: mouth at [place] [address] bedtime. Medical Branch atorvastati 0 Yes [id number] 20mg Take 1 Univers n 20 mg 7-14 tablet by ity of tablet 00:00: mouth at [place] [address] bedtime. Medical Branch atorvastati 0 Yes [id number] 20mg Take 1 Univers n 20 mg 7-14 tablet by ity of tablet 00:00: mouth at [place] [address] bedtime. Medical Branch atorvastati 0 Yes [id number] 20mg Take 1 Univers n 20 mg 7-14 tablet by ity of tablet 00:00: mouth at [place] [address] bedtime. Medical Branch atorvastati 0 Yes [id number] 20mg Take 1 Univers n 20 mg 7-14 tablet by ity of tablet 00:00: mouth at [place] [address] bedtime. Medical Branch atorvastati 0 Yes [id number] 20mg Take 1 Univers n 20 mg 7-14 tablet by ity of tablet 00:00: mouth at [place] [address] bedtime. Medical Branch atorvastati 0 Yes [id number] 20mg Take 1 Univers n 20 mg 7-14 tablet by ity of tablet 00:00: mouth at [place] [address] bedtime. Medical Branch atorvastati 0 3- No [id number] 20mg Take 1 Univers n 20 mg 7-14 - tablet by ity of tablet 00:00: 00:00 mouth at [place] 00 :00 bedtime. Medical Branch aspirin 81 0 Yes 81mg Take 81 mg U nivers mg chewable 6-17 by mouth ity of tablet 15:35: daily. [place] Medical Branch aspirin 81 2020-0 Yes 81mg Take 81 mg U nivers mg chewable 6-17 by mouth ity of tablet 15:35: daily. [place] Medical Branch aspirin 81 2020-0 Yes 81mg Take 81 mg U nivers mg chewable 6-17 by mouth ity of tablet 15:35: daily. [place] Medical Branch aspirin 81 2020-0 Yes 81mg Take 81 mg U nivers mg chewable 6-17 by mouth ity of tablet 15:35: daily. [address] Branch aspirin 81 2020-0 Yes 81mg Take 81 mg U nivers mg chewable 6-17 by mouth ity of tablet 10:35: daily. [address] Branch aspirin 81 2020-0 Yes 81mg Take 81 mg U nivers mg chewable 6-17 by mouth ity of tablet 10:35: daily. [address] Branch aspirin 81 2020-0 Yes 81mg Take 81 mg U nivers mg chewable 6-17 by mouth ity of tablet 10:35: daily. [address] Branch aspirin 81 2020-0 Yes 81mg Take 81 mg U nivers mg chewable 6-17 by mouth ity of tablet 10:35: daily. [address] Branch aspirin 81 2020-0 Yes 81mg Take 81 mg U nivers mg chewable 6-17 by mouth ity of tablet 10:35: daily. [address] aspirin 81 2020-0 Yes 81mg Take 81 mg U nivers mg chewable 6-17 by mouth ity of tablet 10:35: daily. [address] aspirin 81 2020-0 Yes 81mg Take 81 mg U nivers mg chewable 6-17 by mouth ity of tablet 10:35: daily. [address] Branch aspirin 81 2020-0 Yes 81mg Take 81 mg U nivers mg chewable 6-17 by mouth ity of tablet 10:35: daily. [address] aspirin 81 2020-0 Yes 81mg Take 81 mg U nivers mg chewable 6-17 by mouth ity of tablet 10:35: daily. [address] aspirin 81 2020-0 Yes 81mg Take 81 mg U nivers mg chewable 6-17 by mouth ity of tablet 10:35: daily. [address] Branch aspirin 81 2020-0 Yes 81mg Take 81 mg U nivers mg chewable 6-17 by mouth ity of tablet 10:35: daily. [address] aspirin 81 2020-0 Yes 81mg Take 81 mg U nivers mg chewable 6-17 by mouth ity of tablet 10:35: daily. [address] aspirin 81 2020-0 Yes 81mg Take 81 mg U nivers mg chewable 6-17 by mouth ity of tablet 10:35: daily. [place] [facility] aspirin 81 Yes 81mg Take 81 mg U nivers mg chewable 6-17 by mouth ity of tablet 10:35: daily. [place] [facility] aspirin 81 Yes 81mg Take 81 mg U nivers mg chewable 6-17 by mouth ity of tablet 10:35: daily. [place] [facility] aspirin 81 Yes 81mg Take 81 mg U nivers mg chewable 6-17 by mouth ity of tablet 10:35: daily. [place] [facility] metoprolol 2020- No [id number] 25mg Take 1 Univers succinate 6-17 07-18 tablet by ity of XL 25 mg 24 00:00: 04:59 mouth 2 [place] hr tablet 00 :00 (two) [facility] times [place] daily for 30 days. metoprolol 2020- No [id number] 25mg Take 1 Univers succinate 6-17 07-18 tablet by ity of XL 25 mg 24 00:00: 04:59 mouth 2 [place] hr tablet 00 :00 (two) [facility] times [place] daily for 30 days. metoprolol 2020- No [id number] 25mg Take 1 Univers succinate 6-17 07-18 tablet by ity of XL 25 mg 24 00:00: 04:59 mouth 2 [place] hr tablet 00 :00 (two) [facility] daily for 30 days. atorvastati Yes [id number] 20mg Take 1 Univers n 20 mg 5-07 tablet by ity of tablet 00:00: mouth at [place] [address] bedtime. Medical Branch atorvastati Yes [id number] 20mg Take 1 Univers n 20 mg 5-07 tablet by ity of tablet 00:00: mouth at [place] [address] bedtime. Medical Branch atorvastati Yes [id number] 20mg Take 1 Univers n 20 mg 5-07 tablet by ity of tablet 00:00: mouth at [place] [address] bedtime. [facility] Branch atorvastati Yes [id number] 20mg Take 1 Univers n 20 mg 5-07 tablet by ity of tablet 00:00: mouth at [place] [address] bedtime. Medical Branch atorvastati Yes [id number] 20mg Take 1 Univers n 20 mg 5-07 tablet by ity of tablet 00:00: mouth at [place] 00 bedtime. Medical Branch atorvastati 2020- No [id number] 20mg Take 1 Univers n 20 mg 5-07 07-14 tablet by ity of tablet 00:00: 00:00 mouth at [place] 00 :00 bedtime. Medical Branch foLIC acid 2020- No 1mg Take 1 mg U nivers 1 mg tablet 03-18-06 by mouth ity of 14:27: 00:00 daily. [place] 57 :00 Medical Branch pantoprazol 2020- No 40mg Take 40 mg Univers e sodium 03-18-06 by mouth ity of (PANTOPRAZO 14:27: 00:00 daily. Donnie as LE ORAL) 57 :00 Medical Branch foLIC acid 2020- No 1mg Take 1 mg U nivers 1 mg tablet 03-18-06 by mouth ity of 14:27: 00:00 daily. [place] 57 :00 Medical Branch pantoprazol 2020- No 40mg Take 40 mg Univers e sodium 03-18-06 by mouth ity of (PANTOPRAZO 14:27: 00:00 daily. Don[place] as LE ORAL) 57 :00 Medical Branch topiramate 2020- No 25mg Take 25 mg Univers (TOPAMAX) 03-18 05-06 by mouth. ity of 25 mg 14:27: 00:00 [place] tablet 53 :00 Medical Branch topiramate 2020- No 25mg Take 25 mg Univers (TOPAMAX) 03-18 05-06 by mouth. ity of 25 mg 14:27: 00:00 [place] tablet 53 :00 Medical Branch atorvastati 2020- No 40mg Take 40 mg Univers n 40 mg 03-18 05-06 by mouth ity of tablet 14:27: 00:00 at [place] 44 :00 bedtime. Medical Branch atorvastati 2020- No 40mg Take 40 mg Univers n 40 mg 03-18 05-06 by mouth ity of tablet 14:27: 00:00 at [place] 44 :00 bedtime. Medical Branch acetaminoph 2020- No Take by Un davida en (TYLENOL 5-06 05-06 mouth. ity o f EXTRA 14:27: 00:00 [place] STRENGTH 40 :00 Medical ORAL) Branch acetaminoph 2020- No Take by Un davida en (TYLENOL 5-06 05-06 mouth. ity o f EXTRA 14:27: 00:00 [place] STRENGTH 40 :00 Medical ORAL) Branch acetaminoph 2018-11 Yes Take by Uni vers en (TYLENOL 2-19 mouth. ity of EXTRA 20:40: [place] STRENGTH 01 Medical ORAL) Branch topiramate 2018-11 Yes 25mg Take 25 mg U nivers (TOPAMAX) 2-19 by mouth. ity o f 25 mg 20:37: [place] tablet 38 Medical Branch foLIC acid 2018-11 Yes 1mg Take 1 mg Un davida 1 mg tablet 2-19 by mouth ity of 20:37: daily. [place] 38 Medical Branch pantoprazol 2018-11 Yes 40mg Take 40 mg Univers e sodium 2-19 by mouth ity of (PANTOPRAZO 20:37: daily. [place] LE ORAL) 38 Medical Branch atorvastati 2018-11 Yes 40mg Take 40 mg Univers n 40 mg 2-19 by mouth ity of tablet 20:37: at [place] bedtime. Medical Branch aspirin 2018-11 Yes [id number] 325mg Take 1 Un davida E.C. 325 mg 2-19 tablet by ity of EC tablet 00:00: mouth [place] 00 daily. Medical Branch aspirin 2018-11- No [id number] 325mg Take 1 U nivers E.C. 325 mg 2-19 05-06 tablet by it y of EC tablet 00:00: 00:00 mouth [place] 00 :00 daily. Medical Branch aspirin 2018-11- No [id number] 325mg Take 1 U nivers E.C. 325 mg 2-19 05-06 tablet by it y of EC tablet 00:00: 00:00 mouth [place] 00 :00 daily. Medical Branch docusate 2018-11 Yes [id number] 100mg Take 1 U nivers 100 mg 1-30 capsule by ity of capsule 00:00: mouth [place] 00 daily as Medical needed for Branch Constipati on (Take with Tramadol to prevent constipati on). ferrous 2018-11 Yes [id number] 325mg Take 1 Un davida sulfate 325 1-30 tablet by ity of mg (65 mg 00:00: mouth 3 [place] iron) 00 (three) Medical tablet times Branch daily with meals. docusate 2018-11- No [id number] 100mg Take 1 Univers 100 mg 1-30 05-06 capsule by ity of capsule 00:00: 00:00 mouth once [place] 00 :00 daily as Medical needed for Branch Constipati on (Take with Tramadol to prevent constipati on). ferrous 2018-11- No [id number] 325mg Take 1 U nivers sulfate 325 1-30 05-06 tablet by it y of mg (65 mg 00:00: 00:00 mouth 3 [place] iron) 00 :00 (three) Medical tablet times Branch daily with meals. docusate 2018-11- No [id number] 100mg Take 1 Univers 100 mg -30 05-06 capsule by ity of capsule 00:00: 00:00 mouth once [place] 00 :00 daily as Medical needed for Branch Constipati on (Take with Tramadol to prevent constipati on). ferrous 2018-11- No [id number] 325mg Take 1 U nivers sulfate 325 -30 05-06 tablet by it y of mg (65 mg 00:00: 00:00 mouth 3 [place] iron) 00 :00 (three) Medical tablet times Branch daily with meals. No known No Univers medications [place] [facility] Vital Signs Vital Name Observation Time Observation Value Comments Source Systolic blood 2023-08-07 15:47:00 136 mm[Hg] Galina Scales - pressure External Diastolic blood 2023-08-07 15:47:00 83 mm[Hg] Jackson Scales - pressure External Heart rate 2023-08-07 15:47:00 76 /min Galina rothman - External Respiratory rate 2023-08-07 15:47:00 18 /min Leslie Scales - External Body height 2023-08-07 15:47:00 162.6 cm Galina rothman - External Body weight 2023-08-07 15:47:00 84.369 kg Galina rothman - External BMI 2023-08-07 15:47:00 31.93 kg/m2 Galina rothman - External Oxygen saturation in 2023-08-07 15:47:00 96 /min Galina Seybold - Arterial blood by External Pulse oximetry Systolic blood 2023-07-11 19:11:00 116 mm[Hg] Galina Seybold - pressure External Diastolic blood 2023-07-11 19:11:00 68 mm[Hg] Kelse y Seybold - pressure External Heart rate 2023-07-11 19:11:00 88 /min Galina S eybold - External Body temperature 2023-07-11 19:11:00 37.06 Vanesa Leslie ey Seybold - External Respiratory rate 2023-07-11 19:11:00 15 /min Leslie ey Seybold - External Body height 2023-07-11 19:11:00 162.6 cm Galina S eybold - External Body weight 2023-07-11 19:11:00 84.55 kg Galina S eybold - External BMI 2023-07-11 19:11:00 32.00 kg/m2 Galina S eybold - External Oxygen saturation in 2023-07-11 19:11:00 100 /min Galina Seybold - Arterial blood by External Pulse oximetry Systolic blood 2023-04-11 13:12:00 112 mm[Hg] Galina Seybold - pressure External Diastolic blood 2023-04-11 13:12:00 70 mm[Hg] Jackson y Seybold - pressure External Heart rate 2023-04-11 13:08:00 85 /min Galina S eybold - External Body temperature 2023-04-11 13:08:00 36.67 Vanesa Leslie ey Seybold - External Respiratory rate 2023-04-11 13:08:00 20 /min Leslie ey Seybold - External Body height 2023-04-11 13:08:00 162.6 cm Galina S eybold - External Body weight 2023-04-11 13:08:00 85.367 kg Galina S eybold - External BMI 2023-04-11 13:08:00 32.30 kg/m2 Galina S eybold - External Oxygen saturation in 2023-04-11 13:08:00 98 /min Galina Seybold - Arterial blood by External Pulse oximetry Systolic blood 2023-01-10 14:42:00 123 mm[Hg] Galina Chanybold - pressure External Diastolic blood 2023-01-10 14:42:00 71 mm[Hg] Jackson beck Seybold - pressure External Heart rate 2023-01-10 14:42:00 78 /min Galina Shepherd eybold - External Body temperature 2023-01-10 14:42:00 37.33 Vanesa Leslie garza Seybold - External Respiratory rate 2023-01-10 14:42:00 14 /min Leslie garza Seybold - External Body height 2023-01-10 14:42:00 162.6 cm Galina Shepherd eybold - External Body weight 2023-01-10 14:42:00 82.101 kg Galina Shepherd eybold - External BMI 2023-01-10 14:42:00 31.07 kg/m2 Galina garzabold - External Oxygen saturation in 2023-01-10 14:42:00 99 /min Galina Scales - Arterial blood by External Pulse oximetry Systolic blood 2022-12-13 17:17:00 136 mm[Hg] Galina Seybold - pressure External Diastolic blood 2022-12-13 17:17:00 76 mm[Hg] Jackson beck Seybold - pressure External Heart rate 2022-12-13 17:17:00 85 /min Galina Shepherd eybold - External Body temperature 2022-12-13 17:17:00 36.89 Vanesa Leslie garza Seybold - External Respiratory rate 2022-12-13 17:17:00 14 /min Leslie garza Seybold - External Body height 2022-12-13 17:17:00 162.6 cm Galina Shepherd eybold - External Body weight 2022-12-13 17:17:00 82.555 kg Galina Shepherd eybold - External BMI 2022-12-13 17:17:00 31.24 kg/m2 Galina Shepherd eybold - External Systolic blood 2022-12-09 18:04:00 124 mm[Hg] Univer sity of pressure [facility] Diastolic blood 2022-12-09 18:04:00 76 mm[Hg] Unive rsity of [facility] Heart rate 2022-12-09 18:04:00 68 /min [facility] Respiratory rate 2022-12-09 18:04:00 18 /min [facility] ersity [facility] Oxygen saturation in 2022-12-09 18:04:00 100 /min University of Arterial blood by [facility] Pulse oximetry Branch Body temperature 2022-12-09 14:51:00 36.56 Vanesa Univ ersity of [facility] Body height 2022-12-09 00:01:00 162.6 cm Universi ty of [place] [facility] [place] Body weight 2022-12-09 00:01:00 79.833 kg Universi ty of [place] [facility] BMI 2022-12-09 00:01:00 30.21 kg/m2 Universi ty of [place] [facility] Systolic blood 2022-09-13 14:03:00 134 mm[Hg] Univer sity of pressure [place] [facility] Diastolic blood 2022-09-13 14:03:00 85 mm[Hg] Unive rsity of pressure [place] [facility] [place] Heart rate 2022-09-13 14:03:00 76 /min Universi ty of [place] [facility] Respiratory rate 2022-09-13 14:03:00 20 /min [facility] ersity of [place] [facility] [place] Body height 2022-09-13 14:03:00 162.6 cm Universi ty of [place] [facility] Body weight 2022-09-13 14:03:00 81.557 kg Universi ty of [place] [facility] BMI 2022-09-13 14:03:00 30.86 kg/m2 Universi ty [facility] [place] [facility] Oxygen saturation in 2022-09-13 14:03:00 98 /min University of Arterial blood by [facility] Pulse oximetry Branch Systolic blood 2022-08-08 15:53:00 124 mm[Hg] Galina Chanybold - pressure External Diastolic blood 2022-08-08 15:53:00 58 mm[Hg] Jackson beck Seybold - pressure External Heart rate 2022-08-08 15:53:00 89 /min Galina garzabocomfort - External Body temperature 2022-08-08 15:53:00 36.56 Vanesa Leslie ey Seybold - External Respiratory rate 2022-08-08 15:53:00 14 /min Leslie ey Seybold - External Body height 2022-08-08 15:53:00 162.6 cm Galina S eybold - External Body weight 2022-08-08 15:53:00 79.833 kg Galina Shepherd eybold - External BMI 2022-08-08 15:53:00 30.21 kg/m2 Galina garzabocomfort - External Systolic blood 2022-03-22 04:05:00 124 mm[Hg] Univer sity of pressure [place] [facility] Diastolic blood 2022-03-22 04:05:00 75 mm[Hg] Unive rsity of pressure [place] [facility] Heart rate 2022-03-22 04:05:00 84 /min Universi ty of [place] [facility] Respiratory rate 2022-03-22 04:05:00 18 /min Univ ersity of [place] [facility] Oxygen saturation in 2022-03-22 04:05:00 98 /min University of Arterial blood by [place] [employer] Pulse oximetry Branch Body temperature 2022-03-22 00:10:00 36.17 Vanesa Univ ersity of [place] [facility] Body height 2022-03-22 00:10:00 162.6 cm Universi ty [facility] [place] [facility] Body weight 2022-03-22 00:10:00 84.369 kg [facility]i ty [facility] [place] [facility] BMI 2022-03-22 00:10:00 31.93 kg/m2 [facility]i ty [facility] [place] [facility] Systolic blood 2021-04-29 15:31:00 125 mm[Hg] Univer sity of pressure [place] [facility] Diastolic blood 2021-04-29 15:31:00 79 mm[Hg] Unive rsity of pressure [place] [facility] Heart rate 2021-04-29 15:31:00 87 /min [facility]i ty [facility] [place] [facility] Respiratory rate 2021-04-29 15:31:00 19 /min Univ ersity of [place] [facility] Body height 2021-04-29 15:31:00 162.6 cm [facility] [place] [facility] Body weight 2021-04-29 15:31:00 78.926 kg [facility]i [facility] [place] [facility] BMI 2021-04-29 15:31:00 29.87 kg/m2 [facility] [place] [facility] Oxygen saturation in 2021-04-29 15:31:00 96 /min University of Arterial blood by [facility] jason Pulse oximetry Branch Body weight 2021-03-18 14:19:00 78.382 kg [facility] [place] [facility] BMI 2021-03-18 14:19:00 29.66 kg/m2 [facility] Oxygen saturation in 2021-03-18 14:19:00 98 /min [facility] Arterial blood by [facility] Pulse oximetry Branch Systolic blood 2021-03-18 14:19:00 130 mm[Hg] [facility] Diastolic blood 2021-03-18 14:19:00 84 mm[Hg] [facility] Heart rate 2021-03-18 14:19:00 88 /min [facility] Respiratory rate 2021-03-18 14:19:00 19 /min [facility] Body height 2021-03-18 14:19:00 162.6 cm [facility] Procedures Procedure Date / Time Performing Clinician Source Performed MR STROKE BRAIN WO 2022-12-09 17:21:17 Joao Fong [facility] CONTRAST [facility] TRANSTHORACIC ECHO (TTE) 2022-12-09 16:29:08 Joao Fong [facility] COMPLETE W/ CONTRAST Medical Bra [facility] LIPID PANEL (25581)(TOTAL 2022-12-09 10:51:[address] [facility] CHOLESTEROL, [facility] TRIGLYCERIDES, HDL) CT ANGIOGRAM HEAD 2022-12-08 19:10:09 Pebbles Quintero [facility] CT ANGIOGRAM NECK 2022-12-08 19:10:09 Pebbles Quintero [facility] CT HEAD WO CONTRAST 2022-12-08 17:27:49 Pebbles Quintero [facility] TROPONIN I 2022-12-08 16:47:00 Pebbles Quintero [facility] COMP. METABOLIC PANEL 2022-12-08 16:47:00 Pebbles Quintero [facility] (85207) [facility] CBC WITH DIFF 2022-12-08 16:47:00 Pebbles Quintero [facility] GLYCOSYLATED HEMOGLOBIN 2022-12-08 16:47:00 Joao Fnog [facility] (A1C) [facility] HB ECG ROUTINE & RHYTHM 2022-12-08 16:44:18 Pebbles Quintero [facility] STRIP Medical Branch CONSENT/REFUSAL FOR 2022-12-08 16:18:29 Doctor Andrea, [facility] DIAGNOSIS AND TREATMENT [facility] [place] HOSPITAL ADMISSION 2022-12-08 06:01:00 Doctor Andrea [facility] [place] [facility] MEDICAL RELEASE/CLEARANCE 2022-10-17 06:01:00 Doctor Andrea, [facility] FORMS [place] [facility] [facility] INSURANCE CORRESPONDENCE 2022-09-28 06:01:00 Doctor Andrea, [facility] Medical Branch AUTHORIZATION FOR RELEASE 2022-09-19 06:01:00 Doctor Andrea, [facility] OF [facility] [place] ASSIGNMENT OF BENEFITS 2022-09-13 13:44:46 [facility] MEDICAL RELEASE/CLEARANCE 2022-08-24 05:01:00 Doctor Mendez [facility] FORMS [facility] [place] URINALYSIS NONAUTO W/O 2022-08-08 16:47:58 Hiren Brown Seindra - SCOPE External CT PELVIS W CONTRAST 2022-03-22 02:09:00 Pebbles Quintero [facility] [place] COMP. METABOLIC PANEL 2022-03-22 01:41:00 Pebbles Quintero [facility] (05384) Medical [place] CBC WITH DIFF 2022-03-22 01:41:00 Pebbles Quintero [facility] NOTICE OF PRIVACY 2022-03-21 23:55:25 Doctor Mendez [facility] PRACTICES [facility] [place] CONSENT/REFUSAL FOR 2022-03-21 23:54:54 Doctor Andrea [facility] DIAGNOSIS AND TREATMENT [facility] [place] MR CARDIAC MORPHOLOGY W 2021-07-01 19:18:46 Edna Rojas [facility] WO CONTRAST [facility] THYROID STIMULATING 2021-03-18 15:41:00 Edna Rojas [facility] HORMONE Medical Branch COMP. METABOLIC PANEL 2021-03-18 15:41:[address] [facility] (38996) [facility] LIPID PANEL (13609)(TOTAL 2021-03-18 15:41:00 Edna Rojas [facility] CHOLESTEROL, [facility] TRIGLYCERIDES, HDL) CBC WITH DIFF 2021-03-18 15:41:00 Edna Rojas [facility] N-TERMINAL PRO-BNP 2021-03-18 15:41:00 Edna Rojas [facility] MA ELECTROCARDIOGRAM, 2021-03-18 14:13:22 Edna Rojas Un [facility] CONSENT/REFUSAL FOR 2021-03-18 13:59:15 Doctor Unassigned, [facility] DIAGNOSIS AND TREATMENT [place] [facility] Encounters Start End Encounter Admission Attending Care Care Encounter Source Date/Time Date/Time Type Type Clinicians Facility Department ID 2022-12-[address] PABLO [id number] [facility] 14:00:00 Linda Barrera [facility] 2023-10-03 2023-10-03 Outpatient GALINA FERNÁNDEZ [id number] [place] 14:00:00 14:00:00 MYRNA Seybo ld 2023-09-12 2023-09-12 Outpatient GALINA BROWN [id number] [place] 13:30:00 13:30:00 HIREN Seybol d 2023-09-11 2023-09-11 Outpatient GALINA BROWN [id number] [place] 08:15:00 08:15:00 HIREN Seybol d 2023-08-23 2023-08-23 Outpatient GALINA DIALLO [id number] [place] 00:00:00 00:00:00 Seybol d 2023-08-16 2023-08-16 Outpatient GALINA IDALLO [id number] [place] 00:00:00 00:00:00 Seybol d 2023-08-10 2023-08-10 Outpatient GALINA DIALLO [id number] [place] 00:00:00 00:00:00 Seybol d 2023-08-08 2023-08-08 Outpatient GALINA MARIE [id number] [place] 00:00:00 00:00:00 HÉCTOR Seybol d 2023-08-07 2023-08-07 Outpatient PATAGUSTO GALINA DIALLO [id number] [place] 11:00:00 11:00:00 HÉCTOR Seybol d 2023-08-04 2023-08-04 Outpatient PATENIA GALINA DIALLO [id number] [place] 00:00:00 00:00:00 HÉCTOR Seybol d 2023-07-20 2023-07-20 Outpatient PREZASGALINA [id number] [place] 00:00:00 00:00:00 HIREN Seybol d 2023-07-18 2023-07-18 Outpatient PREZAGALINA Shepherd [id number] [place] 15:00:00 15:00:00 HIREN Seybol d 2023-07-11 2023-07-11 Outpatient PREZAGALINA Shepherd [id number] [place] 14:00:00 14:00:00 HIREN Seybol d 2023-06-07 2023-06-07 Outpatient GALINA DIALLO [id number] [place] 00:00:00 00:00:00 Seybol d 2023-06-05 2023-06-05 Outpatient PATAGUSTOGALINA [id number] [place] 00:00:00 00:00:00 HÉCTOR Seybol d 2023-05-31 2023-05-31 Outpatient PASQUALEGALINAJOSEMarisol DIALLO [id number] [place] 00:00:00 00:00:00 MD BRICE Seybol d 2023-05-25 2023-05-25 Outpatient PATGALINA LIZ [id number] [place] 00:00:00 00:00:00 HÉCTOR Seybol d 2023-05-12 2023-05-[address] TECH GALINA DIALLO [id number] [place] 11:00:00 11:00:00 Seybol d 2023-05-12 2023-05-12 Outpatient MYMELISSA DIALLO [id number] [place] 00:00:00 00:00:00 MD BRICE Seybol d 2023-05-04 2023-05-[address] TECH GALINA DIALLO [id number] [place] 11:30:00 11:30:00 Seybol d 2023-04-28 2023-04-28 Outpatient MYKELSEYONL GALINA DIALLO [id number] [place] 00:00:00 00:00:00 MD BRICE Seybol d 2023-04-26 2023-04-26 Outpatient GALINA DIALLO [id number] [place] 00:00:00 00:00:00 Seybol d 2023-04-25 2023-04-25 Outpatient GALINA MARIE [id number] [place] 16:30:00 16:30:00 HÉCTOR Seybol d 2023-04-24 2023-04-24 Outpatient GALINA BROWN [id number] [place] 10:00:00 10:00:00 HIREN Seybol d 2023-04-20 2023-04-20 Outpatient GALINA MARIE [id number] [place] 11:00:00 11:00:00 HÉCTOR Seybol d 2023 2023 Outpatient GALINA DIALLO [id number] [place] 00:00:00 00:00:00 Seybol d 2023 2023 Outpatient GALINA BROWN [id number] [place] 00:00:00 00:00:00 HIREN Seybol d 2023-04-12 2023-04-12 Outpatient GALINA BROWN [id number] [place] 00:00:00 00:00:00 HIREN Seybol d 2023-04-11 2023-04-11 Outpatient LAB90 GALINA DIALLO [id number] [place] 08:45:00 08:45:00 Seybol d 2023-04-11 2023-04-11 Outpatient GALINA BROWN [id number] [place] 08:15:00 08:15:00 HIREN Seybol d 2023-04-03 2023-04-03 Outpatient GALINA GIBBS [id number] [place] 10:30:00 10:30:00 TERESA Seybol d 2023-03-16 2023-03-16 Outpatient GALINA DUMONT [id number] [place] 00:00:00 00:00:00 SUSANNE Seybol d 2023-03-08 2023-03-08 Outpatient GALINA BRIZUELA [id number] [place] 11:00:00 11:00:00 JULES Seybo ld 2023-03-06 2023-03-06 Outpatient GALINA DIALLO [id number] [place] 00:00:00 00:00:00 Seybol d 2023-02-28 2023-02-28 Outpatient GALINA PATHAK [id number] [place] 11:00:00 11:00:00 LY Seybol d 2023-02-16 2023-02-16 Outpatient GALINA GIBBS [id number] [place] 09:30:00 09:30:00 JINU Seybol d 2023-02-07 2023-02-07 Outpatient GALINA GIBBS [id number] [place] 09:00:00 09:00:00 JINU Seybol d 2023-01-24 2023-01-24 Outpatient GALINA DIALLO [id number] [place] 00:00:00 00:00:00 Seybol d 2023-01-10 2023-01-10 Outpatient GALINA BROWN [id number] [place] 08:45:00 08:45:00 HIREN Seybol d 2023-01-10 2023-01-10 Outpatient GALINA BROWN [id number] [place] 00:00:00 00:00:00 HIREN Seybol d 2023-01-10 2023-01-10 Outpatient FLAVIO DIALLO [id number] [place] 00:00:00 00:00:00 MD BRICE Seybol d 2023-01-02 2023-01-02 Outpatient GALINA DIALLO [id number] [place] 00:00:00 00:00:00 Seybol d 2022-12-27 2022-12-27 Outpatient GALINA DIALLO [id number] [place] 00:00:00 00:00:00 Seybol d 2022-12-22 2022-12-22 Outpatient GALINA DIALLO [id number] [place] 00:00:00 00:00:00 Seybol d 2022-12-15 2022-12-15 Outpatient GALINA DIALLO [id number] [place] 00:00:00 00:00:00 Seybol d 2022-12-14 2022-12-14 Outpatient Kathy SCHROEDER [facility] [id number] Univers 10:00:00 10:00:00 KANWAL [facility] 2022-12-13 2022-12-13 Outpatient GALINA BROWN [id number] [place] 11:30:00 11:30:00 HIREN Seybol d 2022-12-13 2022-12-13 Outpatient GALINA DIALLO [id number] [place] 00:00:00 00:00:00 Seybol d 2022-12-12 2022-12-12 Outpatient GALINA DIALLO [id number] [place] 00:00:00 00:00:00 Seybol d 2022-12-12 2022-12-12 Outpatient GALINA PATINO [id number] [place] 00:00:00 00:00:00 JAZMYN Seybol d 2022-12-12 2022-12-12 Transition EARLE Forbes 1.2.840.114 [id number] Univers 00:00:00 00:00:00 of Cristel WATTER[place] 350.1.13.10 it y of [place] 4.2.7.2.686 [phone] [address] 2022-12-08 2022-12-09 Outpatient U JOAO FONG [facility] [id number] Univers 10:27:00 16:56:00 [facility]22-12-09 [facility] Pebbles Quintero S [facility] 1.2.840.11 [id number] Univers 10:27:00 16:56:00 Encounter Joao Fong [facility] 350.1.13.10 ity of [place] 4.2.7.2.686 [facility] [phone] [address] ([facility]) 2022-12-09 2022-12-09 Outpatient GALINA DIALLO [id number] [place] 00:00:00 00:00:00 Seybol d 2022-12-08 2022-12-08 Outpatient PREZAS, GALINA GALINA [id number] [place] 00:00:00 00:00:00 HIREN Seybol d 2022-12-02 2022-12-02 Outpatient GALINA GALINA [id number] [place] 00:00:00 00:00:00 Seybol d 2022-11-25 2022-11-25 Outpatient GALINA DIALLO [id number] [place] 00:00:00 00:00:00 Seybol d 2022-11-08 2022-11-08 Outpatient PREZAS, GALINA GALINA [id number] [place] 00:00:00 00:00:00 HIREN Seybol d 2022-11-05 2022-11-05 Outpatient PREZAGALINA Shepherd GALINA [id number] [place] 00:00:00 00:00:00 HIREN Seybol d 2022-10-20 2022-10-20 Telephone [facility] [id number] Univers 00:00:00 00:00:00 [employer] HEALTH 350.1.13.10 it y of [place] [phone] [address] 2022-10-17 2022-10-17 Telephone [facility] [id number] [id number] Univers 00:00:00 00:00:00 Kanwal L [place] 350.1.13.10 i ty of [place] [id number] Ne dical [facility] 2022-10-17 2022-10-17 Orders Doctor ALETHA 1.2.840.114 [id number] Univers 00:00:00 00:00:00 Only Unassigned, MARIELA 350.1.13.10 ity of [place] [facility] 4.2.7.2.686 Donnie as [phone] [place] [address] [place] 2022-10-13 2022-10-13 Telephone [facility] [id number] [id number] Univers 00:00:00 00:00:00 Kanwal L HEALTH 350.1.13.10 it [place] [phone] [address] 2022-10-05 2022-10-05 Outpatient [facility] [id number] Univers 08:44:45 23:59:00 KANWAL ity [facility] 2022-10-03 2022-10-03 Outpatient R [facility] [id number] Univers 15:40:00 15:40:00 KANWAL ity [facility] 2022-09-28 2022-09-28 Orders Doctor ALETHA 1.2.840.114 [id number] Univers 00:00:00 00:00:00 Only Unassigned, MARIELA 350.1.13.10 ity of [place] [facility] 4.2.7.2.686 Donnie as [id number] [address] 2022-09-19 2022-09-19 Telephone [facility] 1.2.007.650 [id number] Univers 00:00:00 00:00:00 Kanwal MUNOZ 350.1.13.10 i ty of [place] [phone] [address] 2022-09-19 2022-09-19 Telephone [facility] 1.2.798.535 [id number] Univers 00:00:00 00:00:00 Kanwal [place] 350.1.13.10 i ty of [place] [id number] [address] 2022-09-19 2022-09-19 Orders Doctor ALETHA 1.2.840.114 [id number] Univers 00:00:00 00:00:00 Only Unassigned, MARIELA 350.1.13.10 [facility] 4.2.7.2.686 Donnie as [phone] [address] 2022-09-15 2022-09-15 Outpatient GALINA BROWN [id number] [place] 00:00:00 00:00:00 HIREN Seybol d 2022-09-13 2022-09-13 Out[facility] [id number] Univers 08:40:00 09:40:50 KANWAL ity of [facility] 2022-09-13 2022-09-13 Office [facility] 1.2.840.114 [id number] Univers 08:40:00 09:40:50 Visit Kanwal MUNOZ 350.1.13.10 i ty [place] [phone] Ne dicmo NAL 9 [facility] 2022-09-13 2022-09-13 Orders Doctor ALETHA 1.2.840.114 [id number] Univers 00:00:00 00:00:00 Only Unassigned, MARIELA 350.1.13.10 ity of [place] [facility] 4.2.7.2.686 Donnie as [phone] [address] 2022-09-05 2022-09-05 Outpatient GALINA BROWN [id number] [place] 08:15:00 08:15:00 HIREN Chanybol tanisha 2022-08-29 2022-08-29 Telephone [facility] [id number] [id number] [facility] 00:00:00 00:00:00 Edna MUNOZ 350.1.13.10 ity of [place] [phone] Ne dicmo NAL [address] [place] [address] 2022-08-24 2022-08-24 Orders Doctor ALETHA 1.2.840.114 [id number] Univers 00:00:00 00:00:00 Only Unassigned, MARIELA 350.1.13.10 ity of [place] [facility] 4.2.7.2.686 Donnie as [id number] [address] 2022-08-08 2022-08-08 Outpatient LAB90 GALINA DIALLO [id number] [place] 12:00:00 12:00:00 Seybol d 2022-08-08 2022-08-08 Outpatient GALINA BROWN [id number] [place] 11:15:00 11:15:00 HIREN garay 2022-08-08 2022-08-08 Outpatient R [facility] [id number] Univers 11:00:00 11:00:00 ity [facility] 2022-08-08 2022-08-08 Outpatient R AURORA, [facility] [id number] Univers 08:00:00 08:00:00 KENNETH [facility] 2022-08-08 2022-08-08 Outpatient GALINA BROWN [id number] [place] 00:00:00 00:00:00 HIREN garay 2022-03-21 2022-03-21 Emergency X [facility] [id number] Univers 19:13:00 23:49:00 PEBBLES [facility] 2022-03-21 2022-03-21 Emergency [facility] 1.2.220.019 [id number] Univers 19:13:00 23:49:00 Pebbles Shepherd PEEVER 350.1.13.[address] [facility] 4.2.7.2.686 [facility] [phone] [facility] [address] [place] 2021-08-10 2021-08-10 Outpatient [facility] [id number] Univers 09:30:00 09:30:00 SENDIL [facility] 2021-07-01 2021-07-01 Hospital Rojas, [facility] 1.2.840.114 [id number] Univers 11:24:13 23:59:00 Encounter Sendnd [facility] 350.1.13.[address] [facility] 4.2.7.2.686 [facility] [phone] [facility] [address] [place] 2021-07-01 2021-07-01 Outpatient [facility] [id number] Univers 00:00:00 00:00:00 SENDIL [facility] 2021-05-26 2021-05-26 Refill [facility] 1.2.840.114 [id number] Univers 00:00:00 00:00:00 Sendil [employer] 350.1.13.10 ity [facility] [place] [phone] [address] 2021-04-29 2021-04-29 Office Crystal TNNAVNEET 1.2.840.114 [id number] Univers 10:22:39 11:01:23 Visit Edna Munoz 350.1.13.10 ity [facility] [place] [phone] [address] 2021-04-29 2021-04-29 Outpatient R CRYSTAL [facility] [id number] Univers 10:30:00 10:30:00 SENDIL ity [facility] 2021-04-22 2021-04-22 Outpatient R CRYSTAL [facility] [id number] Univers 08:00:00 08:00:00 SENDIL ity [facility] 2021-04-08 2021-04-08 Outpatient R CRYSTAL [facility] [id number] Univers 09:00:00 09:00:00 SENDIL ity [facility] 2021-03-19 2021-03-[address] [facility] 1.2.500.551 [id number] Univers 00:00:00 00:00:00 Edna Munoz 350.1.13.10 ity [facility] [place]2.7.2.[place] [phone] [address] 2021-03-19 2021-03-19 Telephone ALETHA Simeon 1.2.840.114 [id number] Univers 00:00:00 00:00:00 Ran SIERRA 350.1.13.10 i ty of [facility] 4.2.7.2.686 Donnie as [phone] [address] 2021-03-18 2021-03-18 [employer] Body [employer] Estimator 2, Adc Lab [facility] 1.2.840.114 [id number] Univers 10:32:41 10:47:41 Visit Edna Rojas 350.1.13. 10 it[place] of [place] [phone] Ne dical nal 353 [facility] 2021-03-18 2021-03-18 Office [facility] 1.2.840.114 [id number] Univers 09:01:13 10:11:41 Visit Edna Krystyna Munoz 350.1.13.10 it[place] of [place] [phone] Ne dical nal 059 [facility] 2021-03-18 2021-03-18 Outpatient [facility] [id number] Univers 09:00:00 09:00:00 [facility] 2021-03-18 2021-03-18 Orders Doctor POMPA 1.2.840.114 [id number] Univers 00:00:00 00:00:00 Only Unassigned, MARIELA 350.1.13.10 ity of [place] [facility] 4.2.7.2.686 Donnie as [phone] [address] 2019-10-31 2019-10-31 Outpatient Kathy [facility] [id number] Univers 14:30:00 14:30:00 KELLY candelaria [facility] 2019-09-22 2019-10-12 Inpatient Yoli [facility] SCT [id number] Univers 11:14:09 11:15:00 KELLYSHEBA candelaria [facility] Results Test Description Test Time Test Comments Results Result Comments Source STROKE Protocol - Transthoracic echo (TTE) 2022-12-09 22:53: 32 Test Item Value Reference Range Interpretation Comme nts Height (test code = 4921281016) in Weight (test code = 9856075714) lbs Systolic BP (test code = 0910003230) mmHg Diastolic BP (test code = 8764207630) mmHg Heart Rate (test code = 3953419376) bpm LVOT stroke volume (test code = 22.10 cm3 8386888356) EF(Teich) (test code = 0611097943) 57.40 % LVIDD (test code = 8265058932) 4.20 cm LVIDS (test code = 3370355766) 2.90 cm Left Ventricular End Systolic Volume 32.6 mL by Teichholz Method (test code = 2677815) Left Ventricular End Diastolic Volume 76.5 mL by Teichholz Method (test code = 5056736) IVS (test code = 6579367370) 0.86 cm LVPWD (test code = 0933597276) 0.87 cm LVOT diameter (test code = 8529254665) 1.89 cm LVOT area (test code = 2238644594) 2.80 cm2 FS (test code = 3395818962) 30 % MV Peak E Renard (test code = 8314647202) 69.1 cm/s MV Peak A Renard (test code = 8668489928) 45.7 cm/s E/A ratio (test code = 1519683554) ratio E wave decelartion time (test code = 0.18 s 5819881165) MV E/e' septal (test code = 7.8 cm/s 4580587638) LVOT peak renard (test code = 8451649654) 45.5 cm/s LVOT mn grad (test code = 1871707990) mmHg LA size (test code = 3599474475) 2.6 cm Tapse (test code = 0546698536) 1.39 cm AV LVOT peak gradient (test code = mmHg 6688628431) LVOT peak VTI (test code = 0294973773) 7.9 cm LV V1 mean (test code = 1870147938) 28.10 cm/s TR Peak Renard (test code = 4609593374) 196.8 cm/s Triscuspid Valve Regurgitation Peak mmHg Gradient (test code = 1298863125) Ao root diam (test code = 2965157430) 2.60 cm Aortic root (test code = 0383024903) 2.6 cm Ao root annulus (test code = 2.6 cm 6224551621) PW (test code = 5397862488) 0.87 cm 0.6-1.1 EF - 2D (test code = 90642037) 57.40 % Interventricular Septum Diastolic 0.86 cm Thickness by 2D (test code = 8947056) Radiology Study observation (narrative) (test code = 14146-5) TEN (test code = TEN) ?Left?Ventricle: Left ventricle size is normal. Normal wall thickness. Septal motion is consistent with post-operative status. . Low normal systolic function with a visually estimated EF of 50 - 55%. Normal diastolic function. ?Right?Ventricle: Right ventricle size is normal. Normal systolic function. ?Left?Atrium: Left atrium size is normal. ?Tricuspid?Valve: Insufficient tricuspid regurgitation jet to estimate RVSP, but probably normal. RA pressure is 0-5 mmHg. Left VentricleLeft ventricle size is normal. Normal wall thickness. Septal motion is consistent with post-operative status. . Low normal systolic function with a visually estimated EF of 50 - 55%. Normal diastolic function.Right VentricleRight ventricle size is normal. Normal systolic function.Left AtriumLeft atrium size is normal.Right AtriumRight atrium size is normal.Mitral ValveMitral valve structure is normal. Trace transvalvular regurgitation.Tricuspid ValveTricuspid valve structure is normal. Insufficient tricuspid regurgitation jet to estimate RVSP, but probably normal.Trace transvalvular regurgitation. RA pressure is 0-5 mmHg.Aortic ValveAortic valve opens well.Pulmonic ValveNot well visualized. Trace transvalvular regurgitation.Ascending AortaNormal sized aorta.PericardiumThe pericardium is normal.Study DetailsStudy quality was adequate. A complete echocardiogram was performed using 2D, color flow Doppler and spectral Doppler. 3 mL of Optison ultrasound enhancing agent used and saline contrast was performed. [facility]C)2022-12-09 00:30:28 Test Item Value Reference Range Interpretation Comments HGB A1C (test code = 5.8 % 4.0-5.7 H 4548-4) TEN (test code = TEN) Reference RangesNormal: <5.7%Prediabetes: 5.7 - 6.4%Diabetes: > 6.5% Lab Interpretation (test Abnormal code = 16874-2) [facility] [id number] 17:36:39 Test Item Value Reference Interpretation Comments Range TROPONIN I (test 0.002 ng/mL See_Comment [Automated code = 6809879859) message] The system which generated this result transmitted reference range : <=0.034. The reference range was not used to interpret this result as normal/abnormal . TEN (test code = Reference (Normal) TEN) Range (defined by the 99th percentile reference limit): <= 0.034 ng/mL Note: Cardiac troponin begins to rise 3-4 hours after the onset of ischemia. Repeat in 4-6 hours if the sample was drawn within 3-4 hours of the onset of the symptom and found normal. Diagnosis of myocardial injury is made with acute changes in cTn concentrations with at least one serial sample above the 99th percentile upper reference limit (URL), taken together with the patient's clinical presentation. Biotin has been reported to cause a negative bias, interpret results relative to patient's use of biotin. Lab Interpretation Normal (test code = 50665-8) [facility]. METABOLIC PANEL ([id number])2022-12-08 17:25:57 Test Item Value Reference Range Interpretation Comments NA (test code = 137 mmol/L 135-145 [id number]) K (test code = 4.1 mmol/L 3.5-5.0 1132068817) CL (test code = 102 mmol/L 98-108 0978144076) CO2 TOTAL (test code = 25 mmol/L 23-31 7463986341) AGAP (test code = 2-16 6605268172) BUN (test code = 17 mg/dL 7-23 1494538911) GLUCOSE (test code = 119 mg/dL 70-110 H 2900298816) CREATININE (test code = 0.57 mg/dL 0.50-1.04 1232013606) TOTAL BILI (test code = 0.8 mg/dL 0.1-1.3 1783964624) CALCIUM (test code = 9.0 mg/dL 8.6-10.6 3223215435) T PROTEIN (test code = 7.8 g/dL 6.3-8.2 5764138933) ALBUMIN (test code = 4.3 g/dL 3.5-5.0 2870154798) ALK PHOS (test code = 102 U/L 34-122 4890513508) ALTv (test code = 25 U/L 5-35 1742-6) AST(SGOT) (test code = 24 U/L 13-40 0388015746) eGFR (test code = mL/min/1.73m2 1504351547) TEN (test code = TEN) Association of Glomerular Filtration Rate (GFR) and Staging of Kidney Disease* + --+ --+ ------+| GFR (mL/min/1.73 m2) ?| With Kidney Damage ?| ?Without Kidney Damage+ --------+ --------+ +| ?>90 ?| ?Stage one ?| ? Normal ?+ ---+ ---+ -------+| ?60-89 ?| ?Stage two ?| ? Decreased GFR ? + --+ --+ ------+| ?30-59 ?| ?Stage three ?| ? Stage three ? + --+ --+ ------+| ?15-29 ?| ?Stage four ? | ? Stage four ?+ ---+ ---+ -------+| ?<15 (or dialysis) ? ?| ?Stage five ? | ? Stage five ?+ ---+ ---+ -------+ *Each stage assumes the associated GFR level has been in effect for at least three months. ?Stages 1 to 5, with or without kidney disease, indicate chronic kidney disease. Notes: Determination of stages one and two (with eGFR >59mL/min/1.73 m2) requires estimation of kidney damage for at least three months as defined by structural or functional abnormalities of the kidney, manifested by either:Pathological abnormalities or Markers of kidney damage (including abnormalities in the composition of the blood or urine or abnormalities in imaging tests). Lab Interpretation Abnormal (test code = 54887-8) [facility] WITH [id number] 17:17:59 Test Item Value Reference Range Interpretation Comments WBC (test code = See_Comment [Automated 3250-2) message] The sy stem which generated this result transmitted reference range : 4.30 - 11.10 10*3/?L. The reference range was not used to interpret this result as normal/abnormal . RBC (test code = See_Comment [Automated 704-6) message] The sy stem which generated this result transmitted reference range : 3.93 - 5.25 10*6/?L. The reference range was not used to interpret this result as normal/abnormal . HGB (test code = 12.5 g/dL 11.6-15.0 718-7) HCT (test code = 37.0 % 35.7-45.2 4544-3) MCV (test code = 89.6 fL 80.6-95.5 787-2) MCH (test code = 30.3 pg 25.9-32.8 785-6) MCHC (test code = 33.8 g/dL 31.6-35.1 786-4) RDW-SD (test code = 40.3 fL 39.0-49.9 79765-0) RDW-CV (test code = 12.4 % 12.0-15.5 788-0) PLT (test code = See_Comment [Automated 777-3) message] The sy stem which generated this result transmitted reference range : 166 - 358 10*3/ ?L. The reference r terry was not used to interpret this result as normal/abnormal . MPV (test code = 11.1 fL 9.5-12.9 29926-4) NRBC/100 WBC (test See_Comment [Automat ed code = 5325518536) message] The system which generated this result transmitted reference range : 0.0 - 10.0 /100 WBCs. The refer ence range was not u sed to interpret th is result as normal/abnormal . NRBC x10^3 (test code See_Comment [Auto mated = 3541138012) message] The s ystem which generated this result transmitted reference range : 10*3/?L. The reference range was not used to interpret this result as normal/abnormal . GRAN MAT (NEUT) % 58.1 % (test code = 770-8) IMM GRAN % (test code 0.30 % = 1019084120) LYMPH % (test code = 35.4 % 736-9) MONO % (test code = 3.6 % 5905-5) EOS % (test code = 2.1 % 713-8) BASO % (test code = 0.5 % 706-2) GRAN MAT x10^3(ANC) 4.48 10*3/uL 1.88-7.09 (test code = 3993019591) IMM GRAN x10^3 (test 0.00-0.06 code = 9701739868) LYMPH x10^3 (test code 2.73 10*3/uL 1.32-3.29 = 731-0) MONO x10^3 (test code 0.28 10*3/uL 0.33-0.92 L = 742-7) EOS x10^3 (test code = 0.16 10*3/uL 0.03-0.39 711-2) BASO x10^3 (test code 0.04 10*3/uL 0.01-0.07 = 704-7) Lab Interpretation Abnormal (test code = 92336-9) [facility] [id number] 16:48:00 Test Item Value Reference Range Interpretation Comments UD KETONES (test code = NEG 5-160 456183) UD GLUCOSE (test code = NEG 100-2000 068302) UD PROTEIN (test code = NEG Trace - 2000 mg/dL 192893) UD LEUKOCYTES (test NEG Trace - Large @ 2 code = 195164) min. UD NITRITE (test code = NEG Neg. - Pos. @ 60 059434) sec. UD UROBILINOGEN (test 0.2 mg/dL 0.2-8 code = 882711) UD PH (test code = See_Comment [Automat ed 105338) message] The sy stem which generated this result transmitted reference range : 5.0 - 8.5 @ 60 sec.. The refer ence range was not u sed to interpret th is result as normal/abnormal . UD BLOOD (test code = TRACE Neg. - Large @ 60 695898) sec. UD SPECIFIC GRAVITY See_Comment [Automa zac (test code = 305145) message ] The system which generated this result transmitted reference range : 1.000 - 1.030 @ 45 sec.. The refer ence range was not u sed to interpret th is result as normal/abnormal . UD BILIRUBIN (test code NEG Neg. - Large @ 45 = 179371) sec. Lab Interpretation Abnormal (test code = 36557-2) Galina Scales [facility]. METABOLIC PANEL (85910)2022-03-22 02:02:17 Test Item Value Reference Range Interpretation Comments NA (test code = 137 mmol/L 135-145 4575602820) K (test code = 4.4 mmol/L 3.5-5.0 3684837482) CL (test code = 102 mmol/L 98-108 2006609087) CO2 TOTAL (test code = 24 mmol/L 23-31 0055104260) AGAP (test code = 2-16 7528326944) BUN (test code = 20 mg/dL 7-23 1318032555) GLUCOSE (test code = 109 mg/dL 70-110 9371833409) CREATININE (test code = 0.48 mg/dL 0.50-1.04 L 6776783443) TOTAL BILI (test code = 0.4 mg/dL 0.1-1.4 2317407695) CALCIUM (test code = 9.0 mg/dL 8.6-10.6 1661508263) T PROTEIN (test code = 7.8 g/dL 6.3-8.2 9532789610) ALBUMIN (test code = 4.4 g/dL 3.5-5.0 7686677233) ALK PHOS (test code = 85 U/L 34-122 4051701717) ALTv (test code = 22 U/L 5-35 2-6) AST(SGOT) (test code = 22 U/L 13-40 5778287404) eGFR (test code = mL/min/1.73m2 2114279727) TEN (test code = TEN) Association of Glomerular Filtration Rate (GFR) and Staging of Kidney Disease* + --+ --+ ------+| GFR (mL/min/1.73 m2) ?| With Kidney Damage ?| ?Without Kidney Damage+ --------+ --------+ +| ?>90 ?| ?Stage one ?| ? Normal ?+ ---+ ---+ -------+| ?60-89 ?| ?Stage two ?| ? Decreased GFR ? + --+ --+ ------+| ?30-59 ?| ?Stage three ?| ? Stage three ? + --+ --+ ------+| ?15-29 ?| ?Stage four ? | ? Stage four ?+ ---+ ---+ -------+| ?<15 (or dialysis) ? ?| ?Stage five ? | ? Stage five ?+ ---+ ---+ -------+ *Each stage assumes the associated GFR level has been in effect for at least three months. ?Stages 1 to 5, with or without kidney disease, indicate chronic kidney disease. Notes: Determination of stages one and two (with eGFR >59mL/min/1.73 m2) requires estimation of kidney damage for at least three months as defined by structural or functional abnormalities of the kidney, manifested by either:Pathological abnormalities or Markers of kidney damage (including abnormalities in the composition of the blood or urine or abnormalities in imaging tests). Lab Interpretation Abnormal (test code = 53529-3) [facility] WITH [id number] 01:50:56 Test Item Value Reference Range Interpretation Comments WBC (test code = See_Comment [Automated 6690-2) message] The sy stem which generated this result transmitted reference range : 4.30 - 11.10 10*3/?L. The reference range was not used to interpret this result as normal/abnormal . RBC (test code = See_Comment [Automated 789-8) message] The sy stem which generated this result transmitted reference range : 3.93 - 5.25 10*6/?L. The reference range was not used to interpret this result as normal/abnormal . HGB (test code = 11.9 g/dL 11.6-15.0 718-7) HCT (test code = 35.3 % 35.7-45.2 L 4544-3) MCV (test code = 88.9 fL 80.6-95.5 787-2) MCH (test code = 30.0 pg 25.9-32.8 785-6) MCHC (test code = 33.7 g/dL 31.6-35.1 786-4) RDW-SD (test code = 40.8 fL 39.0-49.9 60200-1) RDW-CV (test code = 12.4 % 12.0-15.5 788-0) PLT (test code = See_Comment [Automated 777-3) message] The sy stem which generated this result transmitted reference range : 166 - 358 10*3/ ?L. The reference r terry was not used to interpret this result as normal/abnormal . MPV (test code = 10.7 fL 9.5-12.9 78481-8) NRBC/100 WBC (test See_Comment [Automat ed code = 5587466864) message] The system which generated this result transmitted reference range : 0.0 - 10.0 /100 WBCs. The refer ence range was not u sed to interpret th is result as normal/abnormal . NRBC x10^3 (test code <0.01 See_Comment [Auto mated = 6975478600) message] The s ystem which generated this result transmitted reference range : 10*3/?L. The reference range was not used to interpret this result as normal/abnormal . GRAN MAT (NEUT) % 62.5 % (test code = 770-8) IMM GRAN % (test code 0.20 % = 6895025254) LYMPH % (test code = 31.0 % 736-9) MONO % (test code = 4.5 % 5905-5) EOS % (test code = 1.6 % 713-8) BASO % (test code = 0.2 % 706-2) GRAN MAT x10^3(ANC) 5.88 10*3/uL 1.88-7.09 (test code = 2708628842) IMM GRAN x10^3 (test <0.03 0.00-0.06 code = 7173404767) LYMPH x10^3 (test code 2.92 10*3/uL 1.32-3.29 = 731-0) MONO x10^3 (test code 0.42 10*3/uL 0.33-0.92 = 742-7) EOS x10^3 (test code = 0.15 10*3/uL 0.03-0.39 711-2) BASO x10^3 (test code <0.03 0.01-0.07 = 704-7) Lab Interpretation Abnormal (test code = 23284-9) [facility] RT-PCR/[id number] 15:19:40 Test Item Value Reference Interpretation Comments Range SARS-CoV-2 NEGATIVE SEE NOTE SARS-CoV-2 RNA NOT INTERPRETATION DETECTEDNegat emily (test code = 84289) results do not preclude SARS-C oV-2 infection and s hould notbe used as t he sole basis for patie nt management deci sions. Negativeresults must be combined wit h clinical observ ations, patient history ,and epidemiological information. Op timum specimen types and timingfor peak viral levels during infections caus ed by SARS-CoV-2 have notbeen determi indu. Collection of m ultiple specimens or ty pes ofspecimens may be necessary to de tect virus. Improper specimencollect ion and handling, seque nce variability und er primers/probes, or organism presen t below the limit of de tection may lead to falsenegative r esults. Positive and ne gative predictive valu es oftesting are h ighly dependent on prevalence. Fal se negative testre sults are more likely when prevalence is h igh. SOURCE (test code = NASOPHARYNGEAL Note: [place] [address]) Ila Neri [place] l-Time RT-PCR. The exp ected result or refer ence range is NEGATI VE (Not Detected). For more information reg arding COVID-19 testin g to include clinicalinforma tion, methodology det ail, intended use, F DA authorization andrecommended fact sheets for nazario ents or healthcare prov iders, see NewTest Announcement: SARS-CoV-2 (COV ID-19) by NAAT at URL below (note,fact shee ts are provided by met hod given in report:https:// www.[employer]/clinic ians/cl ient-communicat ions/ Alternatively, see downloadable PD F fact sheet at:https://www. [employer]/COVID-19-R T-PCR UNLESS OTHERWIS E INDICATED, ALL TESTING PERFORMED [facility], [facility]. [address] [place] [id number] [place] [address] DIRECTOR: JAIME GIMENEZ M.D. CLIA NUMBER [id number] CAP ACCREDITATION N O. [id number] THYROID STIMULATING [id number] 17:59:50 Test Item Value Reference Range Interpretation Comments TSH (test code = See_Comment [Automated message] 0098393720) The system [employer] generated this result transmitted ref erence range: 0.45 - 4 .70 mIU/L. The refe rence range was not u sed to interpret this result as normal/abnor mal. Lab Interpretation (test Normal code = 00558-8) [facility] [id number] 17:59:50 Test Item Value Reference Range Interpretation Comments TSH (test code = See_Comment [Automated message] 2824221607) The system [employer] generated this result transmitted ref erence range: 0.45 - 4 .70 mIU/L. The refe rence range was not u sed to interpret this result as normal/abnor mal. Lab Interpretation (test Normal code = 85582-5) [facility]MINAL [id number] 17:38:25 Test Item Value Reference Range Interpretation Comments NT-proBNP (test code 76 pg/mL See_Comment [Autom ated = 8672287443) message] The system which generated this result transmitted reference range : <=125. The reference range was not used to interpret this result as normal/abnormal . TEN (test code = TEN) Biotin has been reported to cause a negative bias, interpret results relative to patient's use of biotin. Lab Interpretation Normal (test code = 83040-3) [facility] Center[facility]IP[facility] PANEL (87383)(TOTAL CHOLESTEROL, TRIGLYCERIDES, HDL)2021-03-18 17:30:02 Test Item Value Reference Range Interpretation Comments CHOL (test code = 188 mg/dL 120-200 8160505526) HDL (test code = 50 mg/dL >50 L 4354593219) HDLC RATIO (test code = See_Comment [Au tomated message] 9982146266) The system [employer] generated this result transmit zac reference range : <=4.5. The refe rence range was not u sed to interpret th is result as normal/abnormal . TRIG (test code = 153 mg/dL 30-170 3883190096) LDL CHOL (test code = 107 mg/dL See_Comment [Auto mated message] 26957-7) The system [employer] generated this result transmit zac reference range : <=160. The refe rence range was not u sed to interpret th is result as normal/abnormal . VLDL (test code = 31 mg/dL 5-60 5368695544) Lab Interpretation (test Abnormal code = 09646-9) [facility]. METABOLIC PANEL (27321)2021-03-18 17:29:42 Test Item Value Reference Range Interpretation Comments NA (test code = 140 mmol/L 135-145 8738345196) K (test code = 4.4 mmol/L 3.5-5.0 0521042907) CL (test code = 102 mmol/L 98-108 1295691530) CO2 TOTAL (test code 28 mmol/L 23-31 = 0602828294) AGAP (test code = 2-16 4517387014) BUN (test code = 15 mg/dL 7-23 3076790149) GLUCOSE (test code = 102 mg/dL 70-110 2210743144) CREATININE (test code 0.55 mg/dL 0.50-1.04 = 9884845119) TOTAL BILI (test code 0.5 mg/dL 0.1-1.1 = 3743956010) CALCIUM (test code = 9.0 mg/dL 8.6-10.6 8576342760) T PROTEIN (test code 7.3 g/dL 6.3-8.2 = 3959553522) ALBUMIN (test code = 4.2 g/dL 3.5-5.0 5183096350) ALK PHOS (test code = 90 U/L 34-122 7133885364) ALTv (test code = 18 U/L 5-35 2-6) AST(SGOT) (test code 22 U/L 13-40 = 0253313191) eGFR (test code = mL/min/1.73m2 6478722658) TEN (test code = TEN) Association of Glomerular Filtration Rate (GFR) and Staging of Kidney Disease* + + +- +| GFR (mL/min/1.73 m2) ?| With Kidney Damage ?| ?Without Kidney Damage+ ------+ ----+ ------+| ?>90 ?| ?Stage one ?| ? Normal ?+ -+ + -+| ?60-89 ?| ?Stage two ?| ? Decreased GFR ? + + +- +| ?30-59 ?| ?Stage three ?| ? Stage three ? + + +- +| ?15-29 ?| ?Stage four ? | ? Stage four ?+ -+ + -+| ?<15 (or dialysis) ? ?| ?Stage five ? | ? Stage five ?+ -+ + -+ *Each stage assumes the associated GFR level has been in effect for at least three months. ?Stages 1 to 5, with or without kidney disease, indicate chronic kidney disease. Notes: Determination of stages one and two (with eGFR >59mL/min/1.73 m2) requires estimation of kidney damage for at least three months as defined by structural or functional abnormalities of the kidney, manifested by either:Pathological abnormalities or Markers of kidney damage (including abnormalities in the composition of the blood or urine or abnormalities in imaging tests). [facility] WITH [id number] 17:24:03 Test Item Value Reference Range Interpretation Comments WBC (test code = See_Comment [Automated 6690-2) message] The sy stem which generated this result transmitted reference range : 4.30 - 11.10 10*3/?L. The reference range was not used to interpret this result as normal/abnormal . RBC (test code = See_Comment [Automated 789-8) message] The sy stem which generated this result transmitted reference range : 3.93 - 5.25 10*6/?L. The reference range was not used to interpret this result as normal/abnormal . HGB (test code = 12.2 g/dL 11.6-15.0 718-7) HCT (test code = 36.6 % 35.7-45.2 4544-3) MCV (test code = 89.7 fL 80.6-95.5 787-2) MCH (test code = 29.9 pg 25.9-32.8 785-6) MCHC (test code = 33.3 g/dL 31.6-35.1 786-4) RDW-SD (test code = 40.3 fL 39.0-49.9 64570-5) RDW-CV (test code = 12.3 % 12.0-15.5 788-0) PLT (test code = See_Comment [Automated 777-3) message] The sy stem which generated this result transmitted reference range : 166 - 358 10*3/ ?L. The reference r terry was not used to interpret this result as normal/abnormal . MPV (test code = 11.1 fL 9.5-12.9 18686-2) NRBC/100 WBC (test See_Comment [Automat ed code = 3892659830) message] The system which generated this result transmitted reference range : 0.0 - 10.0 /100 WBCs. The refer ence range was not u sed to interpret th is result as normal/abnormal . NRBC x10^3 (test code <0.01 See_Comment [Auto mated = 4937554351) message] The s ystem which generated this result transmitted reference range : 10*3/?L. The reference range was not used to interpret this result as normal/abnormal . GRAN MAT (NEUT) % 64.6 % (test code = 770-8) IMM GRAN % (test code 0.30 % = 5294675447) LYMPH % (test code = 29.5 % 736-9) MONO % (test code = 3.9 % 5905-5) EOS % (test code = 1.4 % 713-8) BASO % (test code = 0.3 % 706-2) GRAN MAT x10^3(ANC) 4.60 10*3/uL 1.88-7.09 (test code = 2201258138) IMM GRAN x10^3 (test <0.03 0.00-0.06 code = 4231895623) LYMPH x10^3 (test code 2.10 10*3/uL 1.32-3.29 = 731-0) MONO x10^3 (test code 0.28 10*3/uL 0.33-0.92 L = 742-7) EOS x10^3 (test code = 0.10 10*3/uL 0.03-0.39 711-2) BASO x10^3 (test code <0.03 0.01-0.07 = 704-7) Lab Interpretation Abnormal (test code = 26375-7) [facility]"
--- NOTE | 2023-08-31 22:03 | RAD REPORT ---
EXAM DESCRIPTION: Sacrum And Coccyx - 08/31/2023 9:45 pm CLINICAL HISTORY: PAIN COMPARISON: Lumbar Puncture For Dx dated 08/15/2019 TECHNIQUE: Three views of the sacrum and coccyx. FINDINGS: No acute fracture. Pelvic ring appears intact. No suspicious osseous lesion. Moderate righ t and mild left sacroiliac joint degenerative changes. Partially visualized lumbosacral junction Mild degenerative changes. Few pelvic phleboliths. IMPRESSION: No acute osseous abnormality of the sacrum and coccyx. Sacroiliac joint degenerative maine nges.
--- NOTE | 2023-08-31 22:10 | ER ---
Nurse's Notes [facility] Name: Sarai Mohan Age: 48 yrs Sex: Female : 1975 Arrival Date: 08/31/2023 Time: 20:29 Bed 12 Private MD: Diagnosis: Coccyx Contusion Presentation: 08/31 20:37 Chief complaint: Patient states: fell about 1 hour [employer], landing on sacrum; got shoe km8 caught in dress; denies LOC or blood thinners; 10/10 pain to sacrum. Coronavirus screen: Client denies travel out of the [place] in the last 14 days. At this time, the client does not indicate any symptoms associated with coronavirus-19. Ebola Screen: No symptoms or risks identified at this time. Initial Sepsis Screen: Does the patient meet any 2 criteria? No. Patient's initial sepsis screen is negative. Does the patient have a suspected source of infection? No. Patient's initial sepsis screen is negative. Risk Assessment: Do you want to hurt yourself or someone else? Patient reports no desire to harm self or others. Onset of symptoms was August 31, 2023. 20:37 Method Of Arrival: Wheelchair km8 20:37 Acuity: VIC 4 km8 Triage Assessment: 20:39 General: Appears in no apparent distress. uncomfortable, Behavior is calm, cooperative. km8 Pain: Complains of pain in coccyx and gluteal cleft Pain currently is 10 out of 10 on a pain scale. EENT: No deficits noted. No signs and/or symptoms were reported regarding the EENT system. Neuro: No deficits noted. Hilliard Agitation-Sedation Scale (RASS): 0 - Alert and Calm Level of Consciousness is awake, alert, obeys commands, Oriented to person, place, time, situation. Cardiovascular: No deficits noted. Denies chest pain, shortness of breath, Capillary refill < 3 seconds Patient's skin is warm and dry. Respiratory: No deficits noted. Airway is patent Respiratory effort is even, unlabored, Respiratory pattern is regular, symmetrical, Denies shortness of breath. GI: No deficits noted. No signs and/or symptoms were reported involving the gastrointestinal system. : No deficits noted. No signs and/or symptoms were reported regarding the genitourinary system. Derm: No deficits noted. No signs and/or symptoms reported regarding the dermatologic system. Skin is intact, is healthy with good turgor, Skin is dry, Skin is normal, Skin temperature is warm. Musculoskeletal: Reports pain in buttocks. 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 Flu vaccine is not up to date. - Social history:: Smoking status: Patient denies any tobacco usage or history of. Patient/guardian denies using alcohol, street drugs. Screenin:24 [facility] ED Fall Risk Assessment (Adult) History of falling in the last 3 months, kl including since admission Yes- single mechanical fall (1 pt) Confusion or Disorientation No (0 pts) Intoxicated or Sedated No (0 pts) Impaired Gait Yes (1 pt) Mobility Assist Device Used No (0 pt) Altered Elimination No (0 pt) Score/Fall Risk Level 0 - 2 = Low Risk Oriented to surroundings, Maintained a safe environment. Abuse screen: Denies threats or abuse. Nutritional screening: No deficits noted. Tuberculosis screening: No symptoms or risk factors identified. Assessment: 21:40 Reassessment: No changes from previously documented assessment. Patient states feeling kl better. Patient states symptoms have improved. Vital Signs: 20:37 BP 166 / 83; Pulse 81; Resp 18 S; Temp 98.2(O); Pulse Ox 100% on R/A; Weight 82.55 kg [facility] (R); Height 5 ft. 4 in. (R); Pain 10/10; 22:24 Pulse 82; Resp 15; Pulse Ox 98% on R/A; kl 20:37 Body Mass Index 31.24 (82.55 kg, 162.56 cm) km8 20:37 Pain Scale: Adult km8 ED Course: 20:32 Patient arrived in ED. ag3 20:36 Katharina Conde PA-C is PHCP. sb4 20:36 Manolo Ahn MD is Attending Physician. sb4 20:39 Triage completed. km8 20:39 Arm band placed on right wrist. km8 21:46 Sacrum And Coccyx XRAY In Process Unspecified. EDMS 22:24 No provider procedures requiring assistance completed. Patient did not have IV access kl during this emergency room visit. Administered Medications: 21:12 CANCELLED (Physician Discretion): hydrocodone-acetaminophen5 mg-325 mg 2 tabs PO once sb4 21:24 Drug: morphine IM 4 mg IM once Route: IM; Site: left ventrogluteal; kl 21:24 Drug: Ondansetron Oral Disintegrating Tablet Oral Disintegrating Tablet 4 mg PO once kl Route: PO; 22:23 Follow up: Response: No adverse reaction; Pain is decreased kl 22:23 Follow up: Response: No adverse reaction kl 22:23 Drug: HYDROcodone-acetaminophen PO 5 mg-325 mg 2 tabs PO once Route: PO; kl 22:23 Follow up: Response: No adverse reaction kl Outcome: 22:10 Discharge ordered by . sb4 22:24 Discharged to home ambulatory, with family, kl 22:24 Condition: good 22:24 Discharge instructions given to patient, Instructed on discharge instructions, follow up and referral plans. medication usage, Demonstrated understanding of instructions, follow-up care, medications, Prescriptions given X 1, 22:25 Patient left the ED. kl Signatures: Dispatcher [employer] EDMS Yolanda Rodriguez RN RN kl Gomez, Alice ag3 Katharina Conde PA-C PA-C sb4 Yen Rendon RN RN km8 Corrections: (The following items were deleted from the chart) 20:42 20:39 Home Meds: folic acid 1 mg Oral tab 1 tab once daily; 8 20:42 20:39 Home Meds: Plavix 75 mg Oral tab 1 tab once daily; km8 20:42 20:39 Home Meds: pantoprazole 40 mg Oral TbEC 1 tab once daily; km8 20:42 20:39 PMHx: stroke; km8 20:42 20:39 PMHx: epilepsy; km8 km8
--- NOTE | 2023-08-31 22:10 | EDPHYS ---
Physician Documentation [facility] Name: Sarai Mohan Age: 48 yrs Sex: Female : 1975 Arrival Date: 08/31/2023 Time: 20:29 Bed 12 Private MD: ED Physician Manolo Ahn HPI: 09/01 02:31 This 48 yrs old Female presents to ER via Wheelchair with complaints of Fall sb4 Injury, Back Pain. 02:31 Patient states that she was undressing when her foot got caught on her dress and caused sb4 her to fall directly on her buttocks. She endorses severe pain to her coccyx. She did not hit her head or lose consciousness. She states that she cannot get comfortable in any position. 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 Flu vaccine is not up to date. - Social history:: Smoking status: Patient denies any tobacco usage or history of. Patient/guardian denies using alcohol, street drugs. ROS: 09/01 02:31 Constitutional: Negative for fever, chills, and weight loss, sb4 MS/extremity: Positive for injury or acute deformity, pain, of the buttocks and coccyx, All other systems are negative, Exam: 02:31 Constitutional: This is a well developed, well nourished patient who is awake, alert, sb4 and in no acute distress. Head/Face: Normocephalic, atraumatic. Eyes: Extra-ocular motions intact. Periorbital areas with no swelling, redness, or edema. ENT: Mucous membranes moist. Skin: Warm, dry with normal turgor. Normal color with no rashes, no lesions, and no evidence of cellulitis. MS/ Extremity: Pulses equal, no cyanosis. Neurovascular intact. Full, normal range of motion. Neuro: Awake and alert, GCS 15, oriented to person, place, time, and situation. Motor strength 5/5 in all extremities. Sensory grossly intact. Vital Signs: 08/31 20:37 BP 166 / 83; Pulse 81; Resp 18 S; Temp 98.2(O); Pulse Ox 100% on R/A; Weight 82.55 kg km8 (R); Height 5 ft. 4 in. (R); Pain 10/10; 22:24 Pulse 82; Resp 15; Pulse Ox 98% on R/A; kl 20:37 Body Mass Index 31.24 (82.55 kg, 162.56 cm) [facility] 20:37 Pain Scale: Adult km8 MDM: 21:03 Patient medically screened. sb4 09/01 02:31 Differential diagnosis: Fracture, contusion. Data reviewed: vital signs, nurses notes, sb4 radiologic studies, and as a result, I will discharge patient. Counseling: I had a detailed discussion with the patient and/or guardian regarding the historical points, exam findings, and any diagnostic results supporting the discharge/admit diagnosis, radiology results, to return to the emergency department if symptoms worsen or persist or if there are any questions or concerns that arise at home. 08/31 21:04 Order name: Sacrum And Coccyx XRAY; Complete Time: 22:05 sb4 Administered Medications: 08/31 21:12 CANCELLED (Physician Discretion): hydrocodone-acetaminophen5 mg-325 mg 2 tabs PO once sb4 21:24 Drug: morphine IM 4 mg IM once Route: IM; Site: left ventrogluteal; kl 21:24 Drug: Ondansetron Oral Disintegrating Tablet Oral Disintegrating Tablet 4 mg PO once kl Route: PO; 22:23 Follow up: Response: No adverse reaction; Pain is decreased kl 22:23 Follow up: Response: No adverse reaction kl 22:23 Drug: HYDROcodone-acetaminophen PO 5 mg-325 mg 2 tabs PO once Route: PO; kl 22:23 Follow up: Response: No adverse reaction kl Disposition Summary: 08/31/23 22:10 Discharge Ordered Notes: Location: Home sb4 Problem: new sb4 Symptoms: have improved sb4 Condition: Stable sb4 Diagnosis - Coccyx Contusion sb4 Followup: sb4 - With: Private Physician - When: As needed - Reason: Recheck today's complaints, Re-evaluation by your physician Discharge Instructions: - Discharge Summary Sheet sb4 - Tailbone Injury, [id number] sb4 Forms: - Medication Reconciliation Form sb4 - Thank You Letter sb4 - Antibiotic Education sb4 - Prescription Opioid Use sb4 - Patient Portal Instructions sb4 - Leadership Thank You Letter sb4 Prescriptions: - acetaminophen-codeine 300-30 mg Oral tablet - take 1 tablet ORAL route every 4 hours as needed for pain; 20 tablet; Refills: sb4 0, Product Selection Permitted Addendum: 09/02/2023 01:44 Co-signature as Attending Physician, Manolo Ahn MD. e c2 Signatures: Dispatcher [employer] Yolanda Scruggs, CHUCKY RN Katharina Medellin, PA-C PAAbdoulayeC sb4 Manolo Ahn MD MD [facility] Yen Rendon RN RN 8 Corrections: (The following items were deleted from the chart) 08/31 20:42 20:39 Home Meds: folic acid 1 mg Oral tab 1 tab once daily; [place] [id number] 20:42 20:39 Home Meds: Plavix 75 mg Oral tab 1 tab once daily; [place] [id number] 20:42 20:39 Home Meds: pantoprazole 40 mg Oral TbEC 1 tab once daily; [place] [id number] 20:42 20:39 PMHx: stroke; [place] [id number] 20:42 20:39 PMHx: epilepsy; [place] [id number] 21:12 21:04 HYDROcodone-acetaminophen PO 5 mg-325 mg 2 tabs PO once ordered. sb4 sb4 21:12 21:12 HYDROcodone-acetaminophen PO 5 mg-325 mg 2 tabs PO once ordered. sb4 sb4
[2023-08-31 22:30] VITALS: BP 166/83; TEMP 98.2
[2023-08-31 22:32] VITALS: O2SAT 98
[2023-08-31] MEDS ORDERED: HYDROCODONE/APAP 5/325 MG TAB ONE (22:33)
== END 2023-08-31 22:25 | disposition home or self-care (01) ==
LOC: ER 20:29
DX: S30.0XXA Contusion of lower back and pelvis, initial encounter (principal)
CPT/HCPCS: 72220; 96372; 99284